=== PATIENT | female | born 1970 | race Caucasian/White ===

== ENCOUNTER 2019-03-31 20:38 | Inpatient (IN) | payer OTHER ==
[~2019-03-31] VITALS: Ht 167.6 cm; Wt 108.5 kg
[2019-03-31] MEDS ORDERED: Zantac150 MG PO (20:50)
[2019-03-31 22:30] LABS: Calcium, Ionized (POC) 0.99 mmol/L (1.10-1.46); Chloride (POC) 86 mmol/L (98-108); Creatinine (POC) 1.7 mg/dL (0.6-1.0); Glucose (ISTAT POC) 67 mg/dL (70-99); Hemoglobin (POC) 10.9 g/dL (12.0-16.0); Potassium (POC) 2.5 mmol/L (3.5-5.5); Sodium (POC) 126 mmol/L (135-148); Total CO2 (POC) 28 mmol/L (21-32)
[2019-03-31 22:38] LABS: Albumin/Globulin Ratio 0.4 (0.8-1.8); Bilirubin, Total 0.4 mg/dL (0.1-1.0); Bun/Creatinine Ratio 62.9 (12.0-20.0); Calcium, Blood 8.4 mg/dL (8.5-10.1); Creatinine, Blood 1.32 mg/dL (0.40-1.00); Globulin, Blood 4.7 g/dL (2.2-4.0); Potassium, Blood 2.7 mmol/L (3.5-5.5); Total Protein, Blood 6.7 g/dL (6.4-8.2)
[2019-03-31 22:41] LABS: Hemoglobin 8.1 g/dL (11.5-16.0); Mean Corpuscular HGB 19.4 pg (26.0-34.0); Mean Corpuscular HGB Conc 28.9 g/dL (31.5-36.5); Mean Corpuscular Volume 67 fL (80-100); Mean Platelet Volume 9.6 fL (9.1-12.4); NRBC ABSOLUTE 0.09 K/mm3 (0.00-0.02); NRBC Auto 0.4 /100 WBC (0.0-0.2); Platelet Count 739 K/mm3 (150-400); RDW Coefficient Variation 20.6 % (11.7-14.2); RDW Standard Deviation 46.6 fL (35.1-46.3); Red Blood Cell Count 4.17 M/mm3 (3.80-5.20); White Blood Cell Count 24.97 K/mm3 (4.00-11.30)
[2019-03-31 23:00] LABS: BAND PERCENT MAN 14 % (0-8); BASOPHILS PERCENT MAN 0 % (0-2); EOSINOPHILS PERCENT MAN 0 % (0-6); LYMPHOCYTES ABSOLUTE MAN 0.49 K/mm3 (0.84-5.20); LYMPHOCYTES PERCENT MAN 2 % (21-46); MONOCYTES ABSOLUTE MAN 1.49 K/mm3 (0.16-1.47); MONOCYTES PERCENT MAN 6 % (4-13); NEUTROPHILS ABSOLUTE MAN 22.97 K/mm3 (1.96-9.15); SEG NEUTROPHILS PERCENT MAN 78 % (41-73); TOTAL CELLS COUNTED 100
[2019-03-31 23:25] LABS: Magnesium, Blood 2.7 mg/dL (1.6-2.4)
[2019-04-01 04:00] LABS: Hematocrit 27.2 % (33.0-51.0); Hemoglobin 7.7 g/dL (11.5-16.0); Mean Corpuscular HGB Conc 28.3 g/dL (31.5-36.5); Mean Corpuscular Volume 67 fL (80-100); Mean Platelet Volume 9.4 fL (9.1-12.4); NRBC ABSOLUTE 0.06 K/mm3 (0.00-0.02); NRBC Auto 0.2 /100 WBC (0.0-0.2); Platelet Count 695 K/mm3 (150-400); RDW Coefficient Variation 20.3 % (11.7-14.2); RDW Standard Deviation 46.4 fL (35.1-46.3); Red Blood Cell Count 4.05 M/mm3 (3.80-5.20); White Blood Cell Count 24.16 K/mm3 (4.00-11.30)
[2019-04-01 04:20] LABS: Bun/Creatinine Ratio 59.8 (12.0-20.0); Calcium, Blood 8.3 mg/dL (8.5-10.1); Creatinine, Blood 1.22 mg/dL (0.40-1.00); Potassium, Blood 2.6 mmol/L (3.5-5.5)
[2019-04-01 05:16] LABS: BAND PERCENT MAN 7 % (0-8); BASOPHILS PERCENT MAN 0 % (0-2); EOSINOPHILS PERCENT MAN 0 % (0-6); LYMPHOCYTES PERCENT MAN 5 % (21-46); MONOCYTES ABSOLUTE MAN 1.44 K/mm3 (0.16-1.47); MONOCYTES PERCENT MAN 6 % (4-13); MYELOCYTE ABSOLUTE MAN 0.24 K/mm3 (0.00-0.00); MYELOCYTE PERCENT MAN 1 % (0-0); NEUTROPHILS ABSOLUTE MAN 21.26 K/mm3 (1.96-9.15); SEG NEUTROPHILS PERCENT MAN 81 % (41-73); TOTAL CELLS COUNTED 100
--- NOTE | 2019-04-01 06:52 | NUR ---
Shift Summary: Patient slept well throughout remainder of shift. Dr. Yanes to room this a.m. to assess patient and discuss surgery for perforated ulcer. Patient agreed to surgery, and Dr. Yanes obtained consent. Also received orders per Dr. Yanes for repeat BMP, magnesium, and to T+C. Blood samples obtained through power-glide and sent to lab. VS remain stable. C/o pain to ABD when Dr. Yanes palpated, otherwise no c/o pain. X1 larger loose BM late this shift. IV fluids switched to NS with 20meq KCl after IV KCl piggy back finished. Power-glide to DIONNE remains patent and intact. Peripheral IV to lt AC remains patent and intact. Call light in reach makes needs known. Will continue to monitor until report to day shift RN.
[2019-04-01 06:53] LABS: Prothrombin Time Results 10.6 Sec (9.7-11.5)
[2019-04-01 06:55] LABS: Phosphorus, Blood 3.5 mg/dL (2.5-4.9)
[2019-04-01 06:56] LABS: Bun/Creatinine Ratio 61.1 (12.0-20.0); Calcium, Blood 7.7 mg/dL (8.5-10.1); Creatinine, Blood 1.13 mg/dL (0.40-1.00); Potassium, Blood 3.2 mmol/L (3.5-5.5)
--- NOTE | 2019-04-01 11:30 | NUR ---
PT RETURNED FROM SURGERY AWAKE AND ALERT. REPORTING PAIN IN ABDOMEN AND GROANING. CURRENTLY ON ROOM AIR. NG STARTED TO LIS. VS STARTED. DRESSING TO ABDOMEN INTACT WITH WOUND VAC IN PLACE AND BLINKING GREEN. ANJU DRAIN WITH NO DRAINAGE ON ARRIVAL. CONTINUOUS OXIMETRY STARTED.
--- NOTE | 2019-04-01 14:37 | NUR ---
PT REPORTING PAIN STILL QUITE HIGH IN 7-8 REGION WHICH IS DOWN FROM ARRIVAL TO FLOOR. BLOOD PRESSURE LOW PRIOR TO GIVING 2MG MORPHINE BUT WAS UP TO 113 SYS 15 MINUTES AFTER GIVEN. HEART RATE HAS BEEN ELEVATED SINCE PRIOR TO SURGERY. NG WITH BLACK/BROWN DRAINAGE. ANJU EMPTIED WITH SEROUSANGUINESS DRAINAGE. DRESSING REMAINS C/D/I. SCDS IN PLACE.
--- NOTE | 2019-04-01 18:12 | NUR ---
SHIFT SUMMARY PT TOOK A NAP THIS AFTERNOON AFTER 2ND DOSE OF MORPHINE AND A KPAD APPLIED TO ABDOMEN PER HER REQUEST FOR COMFORT. WOKE UP WITH REPORTS OF FEELING VERY THIRSTY. SPONGES MOISTENED WELL CHAP STICK PROVIDED FOR COMFORT. NG TO LIS WITH GREEN/BLACK DRAINAGE LESS THAN 50ML. REPORTS PAIN GENERALLY 8/10 DESPITE PAIN MEDS. DRESSING REMAINS C/D/I.
--- NOTE | 2019-04-01 20:55 | NUR ---
ASSUMED CARE OF PATIENT AT APPROXIMATELY 1905 FROM TRISTAN Watts RN. PATIENT ALERT AND ORIENTED X4; WEAK; S/P EXP LAP FOR PERF ULCER. PATIENT REPORTS PAIN IN ABDOMEN 12/14; MEDICATED PER EMAR; REPORTS CONSTANT DULL ACHE THAT HAS IMPROVED SINCE SURGERY; K-PAD IN PLACE FROM DAYSHIFT. ABDOMINAL SURGICAL SITE DRESSING C/D/I; ANJU DRAINING AND WOUND VAC IN PLACE. NG TUBE TO LOW INTERMITTENT SUCTION DRAINING DARK GREEN LIQUID. ENOURAGE IS; L/S CLEAR/DIM; ST ON TELE; OXYGEN SATURATION ABOVE 90% ON ROOM AIR. PATIENT DENIES NUMBNESS, TINGLING, DIZZINESS AND NAUSEA. UA TO BE SENT TO LAB; LAB CALLED TO REPORT UA ORDERED IN ER BUT NO SAMPLE; PATIENT ARRIVED BACK FROM SURGERY WITH CATH IN PLACE. PG DIONNE; FLUIDS INFUSING PER ORDER INTO PIV. SCDS IN PLACE. PATIENT CURRENTLY RESTING IN BED; CALL LIGHT IN REACH; BED IN LOWEST POSISTION; BED ALARM ON; WILL CONTINUE TO MONITOR AND ASSESS UNTIL END OF SHIFT.
[2019-04-01 21:34] LABS: Source, Urine Clean Catch
[2019-04-01 21:41] LABS: Bilirubin, Urine Neg (Neg); Blood, Urine Neg (Neg); Glucose Qualitative, Urine Neg (Neg); Ketones, Urine Neg (Neg); Leukocyte Esterase, Urine Neg (Neg); Nitrite, Urine Neg (Neg); Protein, Urine 2+ (Neg); Urobilinogen, Urine NORM (Normal)
[2019-04-01 21:46] LABS: Appearance, Urine Clear (Clear); Color, Urine Yellow (P-Yellow)
[2019-04-01 21:49] LABS: Amorphous Mod (0-Heavy); Bacteria Rare /hpf; Red Blood Cells, Urine Not Seen /hpf (0-2); Squamous Epithelial Cells Not Seen /hpf (Few); White Blood Cells, Urine Rare /hpf (0-5)
[2019-04-02 06:10] LABS: BASOPHILS ABSOLUTE AUTO 0.12 K/mm3 (0.00-0.23); BASOPHILS PERCENT AUTO 0 % (0-2); Hematocrit 24.2 % (33.0-51.0); Hemoglobin 6.8 g/dL (11.5-16.0); LYMPHOCYTES ABSOLUTE AUTO 1.18 K/mm3 (0.84-5.20); LYMPHOCYTES PERCENT AUTO 3 % (21-46); MONOCYTES ABSOLUTE AUTO 1.34 K/mm3 (0.16-1.47); MONOCYTES PERCENT AUTO 4 % (4-13); Mean Corpuscular HGB 19.4 pg (26.0-34.0); Mean Corpuscular HGB Conc 28.1 g/dL (31.5-36.5); Mean Corpuscular Volume 69 fL (80-100); Mean Platelet Volume 9.4 fL (9.1-12.4); NRBC ABSOLUTE 0.09 K/mm3 (0.00-0.02); NRBC Auto 0.2 /100 WBC (0.0-0.2); Platelet Count 605 K/mm3 (150-400); RDW Coefficient Variation 21.2 % (11.7-14.2)
[2019-04-02 06:11] LABS: EOSINOPHILS PERCENT AUTO 0 % (0-6); IMMATURE GRAN ABSOLUTE AUTO 1.32 K/mm3 (0.00-0.10); IMMATURE GRAN PERCENT AUTO 4 % (0-1); NEUTROPHILS ABSOLUTE AUTO 32.74 K/mm3 (1.96-9.15); NEUTROPHILS PERCENT AUTO 89 % (41-73)
--- NOTE | 2019-04-02 06:17 | NUR ---
HEMOGLOBIN 6.8; CALLED DR. WOODWARD TO REPORT DROP IN HEMOGLOBIN; ORDERS RECIEVED FOR ONE UNIT RBC. PATIENT SLEPT ABOUT EIGHT HOURS LAST NIGHT. VSS. PAIN MORE CONTROLLED. NO OTHER ACUTE CHANGES TO REPORT. WILL CONTINUE TO MONITOR AND ASSESS UNTIL END OF SHIFT.
[2019-04-02 06:28] LABS: Bun/Creatinine Ratio 42.1 (12.0-20.0); Creatinine, Blood 1.26 mg/dL (0.40-1.00); Potassium, Blood 3.4 mmol/L (3.5-5.5)
--- NOTE | 2019-04-02 18:19 | NUR ---
TRANSFER PCU TRANSFER TO ROOM 229. PT IS ALERT AND ORIENTED. PT DENIES PAIN AND DENIES ANY CURRENT NEEDS. WOUND VAC TO ABD IS CDI. ANJU DRAIN IS INTACT AND COMPRESSED. NGT TO LIS. NPO. JETT PATENT WITH CLEAR YELLOW URINE. IVF INFUSING PER ORDERS. CALL LIGHT WITHIN REACH. FAMILY AT BEDSIDE FOR SUPPORT.
[2019-04-03 04:20] LABS: BASOPHILS ABSOLUTE AUTO 0.05 K/mm3 (0.00-0.23); BASOPHILS PERCENT AUTO 0 % (0-2); EOSINOPHILS PERCENT AUTO 0 % (0-6); Hematocrit 24.8 % (33.0-51.0); Hemoglobin 7.1 g/dL (11.5-16.0); IMMATURE GRAN ABSOLUTE AUTO 1.13 K/mm3 (0.00-0.10); IMMATURE GRAN PERCENT AUTO 4 % (0-1); LYMPHOCYTES ABSOLUTE AUTO 1.28 K/mm3 (0.84-5.20); LYMPHOCYTES PERCENT AUTO 5 % (21-46); MONOCYTES ABSOLUTE AUTO 0.95 K/mm3 (0.16-1.47); MONOCYTES PERCENT AUTO 3 % (4-13); Mean Corpuscular HGB 20.8 pg (26.0-34.0); Mean Corpuscular HGB Conc 28.6 g/dL (31.5-36.5); Mean Platelet Volume 9.1 fL (9.1-12.4); NEUTROPHILS ABSOLUTE AUTO 24.77 K/mm3 (1.96-9.15); NEUTROPHILS PERCENT AUTO 88 % (41-73); NRBC ABSOLUTE 0.11 K/mm3 (0.00-0.02); NRBC Auto 0.4 /100 WBC (0.0-0.2); Platelet Count 542 K/mm3 (150-400); RDW Standard Deviation 55.4 fL (35.1-46.3); Red Blood Cell Count 3.41 M/mm3 (3.80-5.20); White Blood Cell Count 28.28 K/mm3 (4.00-11.30)
[2019-04-03 04:22] LABS: Mean Corpuscular Volume 73 fL (80-100)
[2019-04-03 04:42] LABS: Anion Gap 6 mmol/L (6-16); Blood Urea Nitrogen 23 mg/dL (8-24); Bun/Creatinine Ratio 31.1 (12.0-20.0); CO2, Blood 25 mmol/L (21-32); Calcium, Blood 7.2 mg/dL (8.5-10.1); Chloride, Blood 109 mmol/L (98-108); Creatinine, Blood 0.74 mg/dL (0.40-1.00); Glomerular Filtration Rate >60 (60-); Glucose, Blood 59 mg/dL (70-99); Potassium, Blood 3.2 mmol/L (3.5-5.5); Sodium, Blood 140 mmol/L (136-145)
--- NOTE | 2019-04-03 06:10 | NUR ---
SHIFT SUMMARY POD#2 DUODENAL ULCER REPAIR. AAOX4/SLOW TO RESPOND AT TIMES. DISCOMFORT CONTROLLED WITH 4MG IV MORPHINE X2 THIS SHIFT. NO NAUSEA/EMESIS. ABD INCISION WITH MARIANA C/D/I. ANJU SECURE WITH SMALL AMOUNT SS OUT. NGT WITH LARGE AMOUNT OF CLEAR/GREEN OUT. NEW MEPILEX DRESSING PLACED ON COCCYX WOUND + NEW WOUND DOCUMENTATION IN CHART. PT NEEDS CONSTANT ENCOURAGEMENT TO CHANGE POSITIONS + PT REFUSES POSITIONS CHANGES AT TIMES. CONTINUE TO EDUCATE PT REGARDING THE IMPORTANCE OF REPOSITIONING. PT SITTING UP IN BED AT THIS TIME WATCHING TV, NADN, CALL LIGHT IN REACH.
--- NOTE | 2019-04-03 06:14 | NUR ---
HYPOGLYCEMIA DR WOODWARD NOTIFIED OF CHEMBG OF 57 THIS AM. D5NS WITH 20 KCL RATE INCREASED. CONTINUE CHEMBG CHECKS Q4H. PT DENYING ANY S/S OF HYPOGLYCEMIA. NPO WITH NGT IN PLACE.
--- NOTE | 2019-04-03 11:25 | NUR ---
Spiritula care visit attempted. Upon receiving a spiritual care referral, I visited patient. Patient is lying in bed with several family memebers present. Patient denies any need for spiritual care but thanked me for checking in on her.
--- NOTE | 2019-04-03 13:37 | NUR ---
04/03/19 1337 Sherin Gordon VERIFICATIONS, AUDITS.
--- NOTE | 2019-04-03 13:55 | NUR ---
THERAPY IN TO SEE PT.
--- NOTE | 2019-04-03 17:29 | NUR ---
SUMMARY POD2. NG DRAINING DARK GREEN FLUID. PT RELUCTANT TO REPOSITION AND WORK W/THERAPY. REPOSITIONED T/O SHIFT. MEDICATED PER ORDERS FOR PAIN. PT'S CBG IN 60S T/O DAY. DISCUSSED W/DR HARRIS; ORDERS OBTAINED. CALL LIGHT IN REACH.
--- NOTE | 2019-04-03 20:37 | NUR ---
04/03/192024 NOTIFIED DR MCCABE OF BLOOD SUGAR OF 60. SEE ORDER TO INCREASE IV RATE TO 175ML/HOUR AND RN INCREASED IV FLUIDS ACCORDINGLY. ASYMPTOMATIC. PT NPO AND ICE CHIPS ONLY.
--- NOTE | 2019-04-04 03:53 | NUR ---
04/04/19 0300 JETT WITH ONLY SCANT URINE IN BAG WITH SEDIMENT. PT DEIES FULL BLADDER. NG TUBE OUTPUT 2450 ML THIS SHIFT SO FAR. BLADDER SCAN = 167 ML. PT DENIES DRINKING WATER. PT'S SON SPOKE WITH SPECIAL EDUCATION PROFESSIONAL,AHMET AND ADMITS THAT FAMILY HAS BEEN GIVING HER WATER OR SHE GETS VERY ANGRY WITH THEM. RN WILL RECHECK PLACEMENT OF JETT CATHETER.
[2019-04-04 03:55] LABS: Hematocrit 24.8 % (33.0-51.0); Mean Corpuscular HGB Conc 28.2 g/dL (31.5-36.5); Mean Corpuscular Volume 75 fL (80-100); Mean Platelet Volume 9.2 fL (9.1-12.4); NRBC ABSOLUTE 0.06 K/mm3 (0.00-0.02); NRBC Auto 0.2 /100 WBC (0.0-0.2); Platelet Count 530 K/mm3 (150-400); RDW Coefficient Variation 22.9 % (11.7-14.2); RDW Standard Deviation 59.4 fL (35.1-46.3); Red Blood Cell Count 3.33 M/mm3 (3.80-5.20); White Blood Cell Count 25.56 K/mm3 (4.00-11.30)
[2019-04-04 04:12] LABS: Anion Gap 4 mmol/L (6-16); Blood Urea Nitrogen 10 mg/dL (8-24); Bun/Creatinine Ratio 15.9 (12.0-20.0); CO2, Blood 24 mmol/L (21-32); Calcium, Blood 7.1 mg/dL (8.5-10.1); Chloride, Blood 115 mmol/L (98-108); Creatinine, Blood 0.63 mg/dL (0.40-1.00); Glomerular Filtration Rate >60 (60-); Glucose, Blood 76 mg/dL (70-99); Potassium, Blood 3.4 mmol/L (3.5-5.5); Sodium, Blood 143 mmol/L (136-145)
--- NOTE | 2019-04-04 04:51 | NUR ---
04/04/19 0430 JETT LEAKING IN BED AND DC'D. NEW #16 JETT CATH INSERTED WITHOUT PROBLEMS. RETURN OF CLEAR ZOEY COLOR URINE. 325 ML IN BAG AND EMPTIED. JETT SECURED WITH STAT -LOCK TO THIGH.
--- NOTE | 2019-04-04 06:55 | NUR ---
04/04/19 0615 MEDICATED FOR PAIN AGAIN. NG TUBE DRAINAGE NOW DARK GREEN AFTER ALL CUPS WERE REMOVED FROM ROOM. PT WOULD MAKE SON AND FAMILY GIVE HER WATER EVEN WHEN SHE WAS AWARE OF NPO WITH ICE CHIPS STATUS. TOTAL NG DRAINAGE WAS 2700 THIS SHIFT. NEW JETT WAS INSERTED OLD ONE WAS LEAKING. PT IS VERY NEGATIVE WITH STAFF AND HAS TO BE ENCOURAGED TO ALLOW NURSING TASKS. SEE PREVIOUS NOTES.
--- NOTE | 2019-04-04 12:38 | NUR ---
[facility] [address] HARRIS. NO NEW ORDERS AT THIS TIME.
[2019-04-04 13:48] LABS: Phosphorus, Blood 1.8 mg/dL (2.5-4.9)
--- NOTE | 2019-04-04 15:22 | NUR ---
pt working w/OT
--- NOTE | 2019-04-04 17:28 | NUR ---
SUMMARY NO ACUTE CHANGES T/O SHIFT. PT REFUSES CARE/REPOSITIONING AT TIMES. EDUCATED ON BEING COMPLIANT W/NPO EXCEPT FOR ICE CHIPS. APPEARS TO HAVE BEEN COMPLIANT THIS SHIFT. WORKED W/THERAPY BUT REFUSED TO STAND. REC'D 1 PRBCS PER ORDERS. PPN STARTED THIS EVENING. MEDICATED PER ORDERS FOR PAIN PRN. CALL LIGHT IN REACH.
--- NOTE | 2019-04-05 01:21 | NUR ---
PPN WHICH WAS SCHEDULED FOR 1700 WAS STARTED AT 0110 DUE TO ABX AND POTASSIUM PHOSPHATE SCHEDULED WHICH WERE NOT COMPATIBLE TO BE RUN AT SAME TIME. ALSO NEW NG TUBE CANISTER STARTED AT 2130 AND BY 0000 IT WAS FULL AT 1100ML LIGHT GREEN/YELLOW FLUID WITH SOME DARK GREEN SEDIMENT AT BOTTOM. ASKED HER IF SHE WAS DRINKING ANYTHING BESIDES THE ICE CHIPS, SHE DENIED ANYTHING ELSE BESIDES SMALL CUP OF ICE CHIPS.
--- NOTE | 2019-04-05 03:21 | NUR ---
CHEM BG CHEM BG AT MIDNIGHT WAS 67. DISCUSSED C BALLROOM DANCER RHONDA AND SHE SAID TO MONICA TO MONITOR IT Q4HR.
[2019-04-05 04:33] LABS: Hematocrit 28.5 % (33.0-51.0); Hemoglobin 8.2 g/dL (11.5-16.0); Mean Corpuscular HGB 21.5 pg (26.0-34.0); Mean Corpuscular HGB Conc 28.8 g/dL (31.5-36.5); Mean Corpuscular Volume 75 fL (80-100); Mean Platelet Volume 8.8 fL (9.1-12.4); NRBC Auto 0.3 /100 WBC (0.0-0.2); Platelet Count 521 K/mm3 (150-400); RDW Coefficient Variation 22.7 % (11.7-14.2); RDW Standard Deviation 57.4 fL (35.1-46.3); Red Blood Cell Count 3.81 M/mm3 (3.80-5.20)
[2019-04-05 04:53] LABS: Anion Gap 7 mmol/L (6-16); Blood Urea Nitrogen 7 mg/dL (8-24); Bun/Creatinine Ratio 12.1 (12.0-20.0); CO2, Blood 22 mmol/L (21-32); Calcium, Blood 7.1 mg/dL (8.5-10.1); Chloride, Blood 113 mmol/L (98-108); Creatinine, Blood 0.58 mg/dL (0.40-1.00); Glomerular Filtration Rate >60 (60-); Glucose, Blood 85 mg/dL (70-99); Magnesium, Blood 1.7 mg/dL (1.6-2.4); Phosphorus, Blood 2.8 mg/dL (2.5-4.9); Sodium, Blood 142 mmol/L (136-145); Triglycerides 146 mg/dL (30-160)
--- NOTE | 2019-04-05 06:54 | NUR ---
SHIFT SUMMARY PT FLAT ANXIOUS AFFECT AT TIMES. REFUSED REPOSITIONING ABOUT EVERY OTHER TIME WHEN ASKED. C/O PAIN IN ABD X1 AND MEDICATED PER EMAR. TOTAL NG TUBE OUTPUT OF SHIFT WAS 2700, ASKED HER IF SHE WAS DRINKING ANYTHING BESIDES ICE CHIPS AND SHE DENIED ANYTHING ELSE. WAS ON 1L O2 BUT O2 SATS WEREN'T GETTING ABOVE 88% SO WENT UP TO 5L TO GET AND MAINTAIN AT 90. SWITCHED TO OXYMIZER AND WAS ABLE TO STAY AT 90% ON 3L O2. LOW OUTPUT OF JETT AT 450. ANJU DRAINAGE MINIMAL T/O NIGHT. SHE ONLY DOZED A LITTLE T/O NIGHT AND WAS AWAKE ALMOST EVERY TIME SOMEONE WENT INTO ROOM. SO IN ROOM ON COT. CALL LIGHT IN REACH.
--- NOTE | 2019-04-05 07:40 | NUR ---
dr washington by to see changed augusto dressing and mirta dressing removed coccyx dressing dr washington req to use powder and to leave off dressing to dry out also to use in groin pt currently on oximzer on 3 l pt denies sob during the night 5 l no cough no flatus no nausea ngt to sx light green drainage
--- NOTE | 2019-04-05 08:00 | NUR ---
after rolling back and forth pt o2 sat down to 84 % inc oxygen to 6 l 89% will recheck in 15-20 min after sob resolved
--- NOTE | 2019-04-05 08:25 | NUR ---
biox 5 l oximizer 91% awaiting xray
--- NOTE | 2019-04-05 09:45 | NUR ---
pt transported to [facility] via [facility] clamped iv sl
--- NOTE | 2019-04-05 14:04 | NUR ---
rt by to eval pt placed on high flow oxygen on 15 liters
--- NOTE | 2019-04-05 15:03 | NUR ---
BIOX 92-93% PT WATCHING TV HIGH FLOW IN MOUTH PT IS A MOUTH BREATHER
--- NOTE | 2019-04-05 15:43 | NUR ---
dr branch by to see pt to transfer to [facility]
--- NOTE | 2019-04-05 16:50 | NUR ---
NGT REMOVED OK TO START CL DIET PER DR PEPPER GONZALEZ STILL 93% ON 15 L HIGH FLOW NC WITH CONT BIOX PT HAS SMALL SORE TO R NARE CLEANED
--- NOTE | 2019-04-05 16:54 | NUR ---
PT TRANSFERED PT TRANSFERED TO [facility] AT 1645. PT SATINGIN THE 80S CURRENTLY ON 15L HIGH FLOW NC. RT IN ROOM. OTHER VITALS STABLE.
--- NOTE | 2019-04-05 16:59 | NUR ---
AIRVO ORDER DR. HARRIS CALLED & UPDATED ON PT TRANSFER & O2 SATS. AIRVO ORDERED. RT NOTIFIED.
--- NOTE | 2019-04-05 17:05 | NUR ---
PT TRANSPORTED TO PCU 8 VIA BED PT PLACED ON O2 CANNISTER WITH NC 2 15 L DECREASED TO 83%
--- NOTE | 2019-04-05 17:14 | NUR ---
PT NOW ON AIRVO PT ON AIRVO. SATING AT 91% ON 40L & 80% AIRVO SETTINGS.
--- NOTE | 2019-04-06 01:29 | NUR ---
04/05/191999 PT RESTING SUPINE HIGH FOWLERS, DECLINES TO ALLOW STAFF REPOSITION, DENIES PAIN, FAMILY AT SIDE AND SUPPORTIVE, WEARING O2 VIA AIRVO, ALERT AND ORIENTED X 4. 0100 PT DECLINED TO ALLOW AND REPOSITIONING OR TAKE ANY PAIN MEDS, COUGH WEAK, LUNG SOUNDS DIMINISHED THROUGHOUT, MOI ENG, CHARGE NURSE ADVISED PT DECLINING TO ALLOW REPOSITIONING.
[2019-04-06 05:26] LABS: Hematocrit 26.8 % (33.0-51.0); Hemoglobin 7.9 g/dL (11.5-16.0); Mean Corpuscular HGB 22.3 pg (26.0-34.0); Mean Corpuscular HGB Conc 29.5 g/dL (31.5-36.5); Mean Corpuscular Volume 76 fL (80-100); NRBC ABSOLUTE 0.03 K/mm3 (0.00-0.02); NRBC Auto 0.1 /100 WBC (0.0-0.2); Platelet Count 494 K/mm3 (150-400); RDW Coefficient Variation 23.2 % (11.7-14.2); RDW Standard Deviation 62.1 fL (35.1-46.3); Red Blood Cell Count 3.55 M/mm3 (3.80-5.20)
[2019-04-06 05:30] LABS: White Blood Cell Count 50.34 K/mm3 (4.00-11.30)
[2019-04-06 05:44] LABS: Magnesium, Blood 1.6 mg/dL (1.6-2.4); Phosphorus, Blood 3.2 mg/dL (2.5-4.9)
[2019-04-06 05:55] LABS: BAND PERCENT MAN 2 % (0-8); BASOPHILS PERCENT MAN 0 % (0-2); EOSINOPHILS PERCENT MAN 0 % (0-6); LYMPHOCYTES ABSOLUTE MAN 2.51 K/mm3 (0.84-5.20); LYMPHOCYTES PERCENT MAN 5 % (21-46); METAMYELOCYTE PERCENT MAN 1 % (0-0); MONOCYTES ABSOLUTE MAN 1.51 K/mm3 (0.16-1.47); MONOCYTES PERCENT MAN 3 % (4-13); SEG NEUTROPHILS PERCENT MAN 89 % (41-73); TOTAL CELLS COUNTED 100
--- NOTE | 2019-04-06 06:17 | NUR ---
SHIFT SUMMARY: 48 Y/O OBESE FEMALE RESTING IN HIGH FOWLERS POSITION, PTS ABD MARIANA DRESSING/DRAIN HAS OLD DRIED RED/YELLOW DRAINAGE NOTED, PT AT TIMES DECLINED TO BE REPOSITIONED BY STAFF UNTIL NURSING INSISTED SHE BE TURNED DUE RISK FOR INCREASED BED SORES, PT WAS INCONTINENT ONCE LARGE AMOUNT GREEN LOOSE STOOL (SAMPLE SENT TO LAB), PTS SON AT SIDE ALL SHIFT, PTS MAGDALENE GODOY HAS 20ML YELLOW FLUID, JETT EMPTIED 400CC TEA COLORED FLUID, PT CONTINUES TO WEAR OXYGEN VIA AIRVO AT 45 LITERS AT 93%, PT THIS AM AT 0530 HAD TEMP 101.7 AND RESPIRATIONS 36 (DR BRUCE NOTIFIED WITH LABS ORDERED), TELEMETRY REFLECTS NSR WITH HEART RATE 92, C/O ABD PAIN RATED 6/10 WITH MORPHINE 4MG IVP GIVEN X 2 WITH RELIEF FELT (PT AT TIMES VERY RELUCTANT TO TAKE MEDS AND WAS ENCOURAGED BY THIS NURSE TO TAKE MEDICATION WITH ACKNOWLEDGEMENT NOTED), BED LOW POSITION WITH CALL LIGHT AT SIDE.
[2019-04-06 08:08] LABS: C-PEPTIDE, SERUM 1.8 ng/mL (1.1-4.4)
--- NOTE | 2019-04-06 10:38 | NUR ---
YANICK WAS IN TO SEE PT, WILL MOVE HER TO ICU, GAVE REPORT TO BANG PRATER, WILL TRANSFER VIA BED. SON IN ROOM AND WAS PRESENT WHEN YANICK WAS IN TO SEE HER. ALL BELONGING GOING WITH HER.
--- NOTE | 2019-04-06 11:08 | NUR ---
ARRIVAL TO ICU 1055 - PT ARRIVES FROM PCU AT THIS TIME. SHE IS CALM, COOPERATIVE AND FOLLOWS COMMANDS APPROPRAITELY. VSS. NSR, HR 90S. BP WNL. AFEBRILE. CURRENTLY ON 45L, 95% ON AIRVO. FAMILY AT BEDSIDE. PPN INFUSING PER ORDERS. WILL CONTINUE TO MONITOR.
--- NOTE | 2019-04-06 12:16 | NUR ---
PT LAYING IN BED AWAKE FLAT AFFECT, SON IN R0OM, DENIES PAIN OR BREATHING PROBLEMS, BUT IS ON AIRVO, SHE IS REFUSING TO BE TURNED, EVEN THOUGH EXPLAINED THE IMPORTANCE. DR. PABON IN TO SEE HER THIS AM, REMOVED A FEW TERELL AND IRRIGATED THE WOUND, CHANGED DRESSING. LUNGS ARE DIM T/O, RESP EVEN AND UNLABORED, NO COUGH NOTED, HRR, TELE IN PLACE RUNNING SR PER MONITOR, SEE STRIP, NO EDEMA NOTED, PPP+1, CAP REFILL <3 SEC, VS STABLE, AFEBRILE, IV SITE IS POWERGLIDE TO DIONNE, SITE IS CLEAR AND PATENT, INFUSING PPN ORDERED, BT HYPOACTIVE, ABD FLAT SOFT TENDER WITH PALP, JETT DRAINING CLEAR YELLOW URINE, ANJU DRAIN DRAINING PURELENT DRAINAGE, SKIN HAS MID LINE INCISION, COCCYX IS RED, BREAKING DOWN PER REPORT, CANNOT ASSESS SHE REFUSED TO TURN, MOVES UPPER EXT, BUT NOT MAKING AN EFFORT TO MOVE LE, PALLATIVE CARE CONSULT PLACED FOR ASSIST WITH NOT PARTICIPATING IN CARE. CALL LIGHT IN REACH.
--- NOTE | 2019-04-06 20:00 | NUR ---
ASSUMED CARE OF PT AT 1900. REPORT RECEIVED. PT PRESENTS IN BED IN NO DISTRESS. CONTINUES WITH AERVO WHEREAS SHE IS MAINTAINING 90 PERCENT SATURATIONS. WILL REVIEW CHART AND PLAN OF CARE FOR THIS PT.
[2019-04-06 20:21] LABS: Adenovirus Not Detected (NOT DETECT); Coronavirus 229E Not Detected (NOT DETECT); Coronavirus HKU1 Not Detected (NOT DETECT); Coronavirus NL63 Not Detected (NOT DETECT); Coronavirus OC43 Not Detected (NOT DETECT); Human Metapneumovirus Not Detected (NOT DETECT); Human Rhinovirus/Enterovirus Not Detected (NOT DETECT); Influenza A Not Detected (NOT DETECT); Influenza A/2009-H1 Not Detected (NOT DETECT); Influenza A/H1 Not Detected (NOT DETECT); Influenza A/H3 Not Detected (NOT DETECT)
[2019-04-06 20:22] LABS: Bordetella pertussis Not Detected (NOT DETECT); Chlamydophila pneumoniae Not Detected (NOT DETECT); Influenza B Not Detected (NOT DETECT); Mycoplasma pneumoniae Not Detected (NOT DETECT); Parainfluenza Virus 1 Not Detected (NOT DETECT); Parainfluenza Virus 2 Not Detected (NOT DETECT); Parainfluenza Virus 3 Not Detected (NOT DETECT); Parainfluenza Virus 4 Not Detected (NOT DETECT); Respiratory Syncytial Virus Not Detected (NOT DETECT)
[2019-04-07 01:13] LABS: PCO2 Arterial 37.7 mmHg (35-45)
--- NOTE | 2019-04-07 01:25 | NUR ---
PT WAS ON A AIRVO BUT WAS MOUTH BREATHING AND COULD NOT KEEP HER SATS UP ON MAX SETTING, PT PLACED ON CPAP 10 60% FULL FACE MASK
[2019-04-07 04:59] LABS: BASOPHILS ABSOLUTE AUTO 0.07 K/mm3 (0.00-0.23); BASOPHILS PERCENT AUTO 0 % (0-2); EOSINOPHILS ABSOLUTE AUTO 0.05 K/mm3 (0.00-0.68); EOSINOPHILS PERCENT AUTO 0 % (0-6); Hematocrit 25.6 % (33.0-51.0); Hemoglobin 7.4 g/dL (11.5-16.0); IMMATURE GRAN ABSOLUTE AUTO 1.53 K/mm3 (0.00-0.10); IMMATURE GRAN PERCENT AUTO 4 % (0-1); LYMPHOCYTES ABSOLUTE AUTO 1.35 K/mm3 (0.84-5.20); LYMPHOCYTES PERCENT AUTO 4 % (21-46); MONOCYTES ABSOLUTE AUTO 0.91 K/mm3 (0.16-1.47); MONOCYTES PERCENT AUTO 3 % (4-13); Mean Corpuscular HGB 21.8 pg (26.0-34.0); Mean Corpuscular HGB Conc 28.9 g/dL (31.5-36.5); Mean Corpuscular Volume 75 fL (80-100); Mean Platelet Volume 9.1 fL (9.1-12.4); NEUTROPHILS ABSOLUTE AUTO 32.82 K/mm3 (1.96-9.15); NEUTROPHILS PERCENT AUTO 89 % (41-73); NRBC ABSOLUTE 0.05 K/mm3 (0.00-0.02); NRBC Auto 0.1 /100 WBC (0.0-0.2); Platelet Count 499 K/mm3 (150-400); RDW Coefficient Variation 23.9 % (11.7-14.2); RDW Standard Deviation 63.9 fL (35.1-46.3); White Blood Cell Count 36.73 K/mm3 (4.00-11.30)
[2019-04-07 05:15] LABS: Anion Gap 5 mmol/L (6-16); Blood Urea Nitrogen 13 mg/dL (8-24); Bun/Creatinine Ratio 21.6 (12.0-20.0); CO2, Blood 25 mmol/L (21-32); Calcium, Blood 7.7 mg/dL (8.5-10.1); Chloride, Blood 109 mmol/L (98-108); Glomerular Filtration Rate >60 (60-); Glucose, Blood 109 mg/dL (70-99); Magnesium, Blood 1.7 mg/dL (1.6-2.4); Phosphorus, Blood 3.3 mg/dL (2.5-4.9); Potassium, Blood 3.7 mmol/L (3.5-5.5); Sodium, Blood 139 mmol/L (136-145)
--- NOTE | 2019-04-07 07:37 | NUR ---
PT HAS RELUCTANTLY ACCEPTED Q 2 HOUR TURNS WITH ENCOURAGEMENT. HAS TOLERATED CPAP AT 10 CM WHEREAS SHE HAS MAINTAINED > 90 PERCENT SATURATIONS. PT HAS BEEN MEDICATED THREE TIMES THIS SHIFT WITH 2 MG MORPHINE FOR POST OP PAIN. THIS HAS ALLOWED PT TO REST. ANJU DRAIN HAS HAD OUT 85 ML SEROUS DRAINAGE WITH SOME HAZINESS IN COLOR. HAVE REPORTED OFF TO ONCOMING RN.
--- NOTE | 2019-04-07 08:45 | NUR ---
MIDLINE DRESSING CHANGE: DR PABON IN TO SEE PT. MIDLINE DRESSING CHANGED AT THIS TIME. VERBAL ORDER TO CHANGE ONCE A DAY. WOUND IS NOTED TO HAVE TWO AREAS WHERE THE TERELL CAME OUT AND APPEARS TO HAVE DEHISCED SLIGHTLY, DR WAS ALREADY AWARE. MIDLINE WAS CLEANED WITH GAUZE AND THE WOUND CLEANING SOLUTION. DR PABON STATES TO LIGHTLY PACK THE TWO AREAS WHERE THE TERELL ARE NOT THERE WITH GAUZE THEN PLACE ABD PAD OVER WITH SOME CLOTH TAPE TO SECURE IN PLACE. DR PABON MADE SUGJESTION TO HAVE NEW BLOOD CULTURES DRAWN, TO DISCUSS WITH HOSPITALIST OR DR JONES FOR ACTUAL ORDER.
--- NOTE | 2019-04-07 09:26 | NUR ---
COMPLEX WOUNDS: REPORT OF PT REFUSING TURNS. EDUCATED PT ON THE IMPORTANCE OF TURNS, SHOWED PT SOME PICTURES OF STAGE IV AND UNSTAGEABLE PRESSURE ULCERS TO EXPRESS IMPORTANCE OF TURNING. PT NODS IN UNDERSTANDING AND DOES NOT PROTEST TO BEDBATH OR TURN. PT IS FOUND TO HAVE A LARGE AMOUNT OF STOOL IN THE BED, AROUND RECTAL TUBE. WOUNDS ON COCCYX AND GLUTEUS APPEAR WORSE THAN IN PREVIOUS SEEN IN DOCUMENTED PICTURES. NEW PICTURES TAKEN AND PLACED IN CHART. CLEANED WITH WATER AND SOAP THEN PLACED MEPILEX DRESSING OVER WOUNDS.
--- NOTE | 2019-04-07 10:31 | NUR ---
UPDATE: DR KAREN EDWARD'D BLOOD CULTURES. NEW ORDERS FOR TUBE FEEDINGS AND DOBHOFF PLACEMENT.
--- NOTE | 2019-04-07 11:11 | NUR ---
LOVENOX: CALLED DR PABON AND RECEIVED THE OK TO GIVE PT LOVENOX. NOTIFIED DR JONES
[2019-04-07 13:30] LABS: Hematocrit 23.7 % (33.0-51.0); Hemoglobin 6.9 g/dL (11.5-16.0)
[2019-04-07 13:50] LABS: Ferritin, Serum 268 ng/mL (8-252); Total Iron Binding Capacity 90 ug/dL (250-450)
[2019-04-07 13:55] LABS: Iron Serum <5 ug/dL (50-170); Percent Saturation Unable to Calculate % (15.0-50.0)
[2019-04-07 13:56] LABS: Vancomycin, Trough 25.8 ug/mL (5.0-10.0)
--- NOTE | 2019-04-07 14:24 | NUR ---
LOW HGB: PT HGB NOTED TO BE 6.9 WHICH IS DOWN FROM THIS MORNINGS LABS OF 7.9 DR JONES NOTIFIED. ORDER FOR 1 UNIT OF PRBC AND TO HOLD LOVENOX AT THIS TIME.
--- NOTE | 2019-04-07 15:13 | NUR ---
PHYSICAL THERAPY AND TURNS: PHYSICAL THERAPY CAME IN TO WORK WITH PT. WORKED ON ROM IN THE BED. WENT IN TO REPOSITION AND PT STATED SHE WAS TO TIRED AND DIDN'T WANT TO MOVE SHE WANTED TO "SLEEP". EDUCATED PT ON THE NEED TO MOVE AND NEEDING TO CHANGE GOWN D/T TUBE FEEDING BEING ON IT AND NEEDING A STOOL SAMPLE OUT OF THE RECTAL TUBE. NUMEROUS VISITORS WHERE IN THE ROOM LEFT FOR CARE TO BE DONE. ASKED PT IF SHE WOULD LIKE TO HAVE VISITORS TOLD TO COME BACK D/T BEING TIRED AND WANTING TO SLEEP, PT STATES "NO". SOME LEAKS NOTED AROUND RECTAL TUBE, CHANGED LINENS AND CLEANED UP AROUND THE RECTAL TUBE. O2 SATS DROPPED WITH ALL THE MOVEMENT AND WORK WITH PHYSICAL THERAPY PLACED PT ON CPAP.
[2019-04-07 17:15] LABS: C DIFFICILE BY DNA AMP Positive (Negative)
--- NOTE | 2019-04-07 18:21 | NUR ---
SHIFT SUMMARY: PT HAS BEEN MORE COMPLIANT WITH TURNS AND CARE. AT ONE POINT PT DID STATE SHE WAS TIRED AND WANTED TO BE LEFT ALONE, BUT THEN PARTICIPATED WITH TURNS AND GOWN CHANGE. EXTENSIVE EDUCATION AND PERSISTANT Q2 TURNS T/O THE DAY. PT WAS PLACED ON THE AIRVO TODAY FOR APPROX 4-5 HOURS AND TOLLERATED WELL. PT USED IS AFTER EDUCATION BUT DOES NOT APPEAR TO HAVE THE DRIVE TO CONTINUE INDEPENDENTLY. MEDICATED FOR PAIN NEEDED PER ORDERS. PT HAS APPEARED RATHER TIRED TODAY AFTER BEDBATH, ASSISTING WITH TURNS AND WORKING WITH PHYSICAL THERAPY. HGB WAS NOTED TO BE LOW, 1 UNIT OF PRBC RUNNING AT THIS TIME. STOOL CAME BACK C-DIF POSITIVE, DR JONES NOTIFIED, AWAITING C-DIF TOX REPORT. VSS T/O THE DAY. PT RESTING AT THIS TIME. CALL LIGHT IN REACH.
--- NOTE | 2019-04-07 18:32 | NUR ---
SHIFT SUMMARY CONT: DOBHOFF WAS PLACED AND TUBE FEEDINGS STARTED @ 15ML/HR, PER DIETARY. PT APPEARS TO BE TOLLERATING AT THIS TIME. NILS WAS DC'D WILL REEVALUATE TOMORROW BASED ON HER HGB.
--- NOTE | 2019-04-07 20:00 | NUR ---
ASSUMED CARE OF PT AT 1915. REPORT RECEIVED. PT PRESENTS IN BED ALERT. WEARING HER CPAP. MAINTAINING OXYGEN SATURATIONS > 90 PERCENT. PT IN NO APPARENT DISTRESS. WILL REVIEW CHART AND PLAN OF CARE FOR THIS PT.
--- NOTE | 2019-04-08 | NUR ---
PT HAS BEEN MEDICATED WITH 4 MG MORPHINE FOR COMPLAINT OF ABDOMINAL - POST OP PAIN. PT STATES THAT THIS IS AFFECTIVE FOR PAIN MANAGEMENT. ABDOMINAL DRESSING REMAINS CDI. ANJU DRAIN REMAINS COMPRESSED. SMALL AMOUNT OF SEROUS DRAINAGE. NO S/S ADVERSE REACTIONS TO ANTIBIOTIC THERAPY. PT NO LONGER RESISTING REPOSITIONING. PT RESPONDS WELL TO FULL TEACHING AND EXPLANATION OF ALL PROCEDURES AND PROCESSES. WILL CONTINUE TO MONITOR.
[2019-04-08 01:10] LABS: Vancomycin, Random 20.2 ug/mL
--- NOTE | 2019-04-08 03:00 | NUR ---
PT RESTING IN BED AT THIS TIME. AGAIN HAS BEEN MEDICATED WITH 4 MG MORPHINE FOR ABDOMINAL/POST OP SURGERY PAIN. PT STATES GOOD RELIEF. CONTINUES COMPLIANCE WITH CPAP MASK. WILL CONTINUE TO MONITOR.
[2019-04-08 04:15] LABS: BASOPHILS ABSOLUTE AUTO 0.05 K/mm3 (0.00-0.23); BASOPHILS PERCENT AUTO 0 % (0-2); EOSINOPHILS PERCENT AUTO 1 % (0-6); Hematocrit 24.7 % (33.0-51.0); Hemoglobin 7.6 g/dL (11.5-16.0); IMMATURE GRAN ABSOLUTE AUTO 0.38 K/mm3 (0.00-0.10); IMMATURE GRAN PERCENT AUTO 2 % (0-1); LYMPHOCYTES PERCENT AUTO 6 % (21-46); MONOCYTES ABSOLUTE AUTO 0.79 K/mm3 (0.16-1.47); MONOCYTES PERCENT AUTO 4 % (4-13); Mean Corpuscular HGB 23.1 pg (26.0-34.0); Mean Corpuscular HGB Conc 30.8 g/dL (31.5-36.5); Mean Corpuscular Volume 75 fL (80-100); Mean Platelet Volume 9.4 fL (9.1-12.4); NEUTROPHILS ABSOLUTE AUTO 19.29 K/mm3 (1.96-9.15); NEUTROPHILS PERCENT AUTO 87 % (41-73); NRBC ABSOLUTE 0.05 K/mm3 (0.00-0.02); NRBC Auto 0.2 /100 WBC (0.0-0.2); Platelet Count 460 K/mm3 (150-400); RDW Coefficient Variation 23.6 % (11.7-14.2); RDW Standard Deviation 63.9 fL (35.1-46.3); Red Blood Cell Count 3.29 M/mm3 (3.80-5.20); White Blood Cell Count 22.11 K/mm3 (4.00-11.30)
[2019-04-08 04:34] LABS: Alanine Aminotransfer (ALT/SGP 20 U/L (12-78); Albumin/Globulin Ratio 0.2 (0.8-1.8); Alk Phos 163 U/L (50-136); Anion Gap 5 mmol/L (6-16); Aspartate Aminotrans (AST/SGOT 32 U/L (12-37); Bilirubin, Total 0.4 mg/dL (0.1-1.0); Blood Urea Nitrogen 16 mg/dL (8-24); Bun/Creatinine Ratio 23.5 (12.0-20.0); CO2, Blood 24 mmol/L (21-32); Calcium, Blood 7.6 mg/dL (8.5-10.1); Chloride, Blood 112 mmol/L (98-108); Creatinine, Blood 0.68 mg/dL (0.40-1.00); Globulin, Blood 4.4 g/dL (2.2-4.0); Glomerular Filtration Rate >60 (60-); Glucose, Blood 71 mg/dL (70-99); Magnesium, Blood 1.7 mg/dL (1.6-2.4); Phosphorus, Blood 3.3 mg/dL (2.5-4.9); Sodium, Blood 141 mmol/L (136-145); Total Protein, Blood 5.4 g/dL (6.4-8.2)
--- NOTE | 2019-04-08 06:33 | NUR ---
[place] DRAINAGE HAS DECREASED. NO COMPLAINTS OF GI DISTRESS WITH C-DIFF. PT STATES THAT SHE HAS HAD A MUCH BETTER NIGHT. HAS BEEN ABLE TO REST SOME. HAS TOLERATED Q 2 HOUR TURNS IN BED. HAVE MADE USE OF CEILING LIFT. WILL CONTINUE TO MONITOR PT, AND WILL REPORT OFF TO ONCOMING RN.
--- NOTE | 2019-04-08 08:09 | NUR ---
ASSUMED CARE: RECEIVED REPORT FROM NOC RN. NO CHANGES NOTED T/O THE NIGHT OTHER THAN INCREASING TUBE FEEDINGS PER ORDERS. NO ACUTE DISTRESS NOTED WHEN CHECKING IN ON PT. PT IS NOTED TO BE ON CPAP AND RESTING WITH EVEN CHEST RISE AND FALL THAT IS TACHY PREVIOUSLY NOTED ON OTHER SHIFTS. O2 SATURATIONS ARE NOTED TO BE 98% AT THIS TIME. WILL CONTINUE TO MONITOR AND ASSESS FURTHER.
[2019-04-08 13:07] LABS: Vancomycin, Random 15.9 ug/mL
--- NOTE | 2019-04-08 17:48 | NUR ---
SHIFT SUMMARY: PHYSICAL THERAPY WORKED WITH PT THIS MORNING AND PT HAS BEEN UP IN THE CHAIR SINCE THEN, REPOSITIONING FROM RECLINING TO SITTING UP STREIGHT. PT DID OWN ORAL CARE AND HAS BEEN FOLLOWING THROUGH WITH USING HER INSENTIVE SPIROMETER. PT HAS BEEN ON THE AIRVO T/O THE DAY SINCE GETTING UP TO THE RECLINER WITHOUT HAVING TO BE PLACED BACK ON THE CPAP. VSS T/O THE DAY. CALL LIGHT IN REACH. WILL CONTINUE TO MONITOR AND REPORT TO ONCOMING RN.
--- NOTE | 2019-04-08 20:07 | NUR ---
ASSUMED PT CARE FROM MOI STORY PT UP IN RECLINER. ALERT AND ORIENTED X4; ABLE TO MAKE NEEDS KNOWN. VERY RESISTANT TO CARES, BUT AFTER EXPLAINING REASONING TO PT; SHE AGREES WITH CARE. UPON ASSUMPTION OF CARE DOBHOFF WAS NO LONGER PATENT; ATTEMPTED TO PULL OUT SLIGHTLY AND FLUSH; HOWEVER, UNSUCCESSFUL. THEREFORE, DOBHOFF PULLED ALL THE WAY OUT. CALL OUT TO DR. JONES IN REGARDS TO REPLACING DOBHOFF FOR PER TUBE VANCO DOSES OR IF DOBHOFF CAN REMAIN OUT. NEW ORDERS TO TRY TO ADMINISTER VANCO NOW IT IS UNKNOWN IF 1800 DOSE WAS ADMINISTERED OR STUCK IN DOBHOFF TUBING. IF UNSUCCESSFUL VIA PO; ORDERS TO REINSERT DOBHOFF AND ADMINISTER PER TUBE. ABDOMINAL DRESSING IS CDI; WILL CHANGE AFTER BED BATH. ANJU DRAIN PATENT AND DRAINING SCANT AMOUNTS OF YELLOW DRAINAGE. WILL ALSO CHANGE DRESSING TO BUTTOCKS AT THAT TIME WELL. PT AGREES WITH PLAN OF ACTION. OFFERED ORAL CARES, PT STATED SHE WAS FEELING FATIGUED; WILL RE-APPROACH LATER. PT APPEARS COMFORTABLE AT THIS TIME STATES SHE IS IN 7/10 PAIN; BUT ALSO STATES THAT IS GENERALLY WHERE HER PAIN IS AT. STATES HER GOAL WOULD BE A 4/10 AND THAT AFTER MEDICATION IT GENERALLY GETS TO A 4. MORPHINE IS AVAILABLE PRN; HOWEVER, BLOOD PRESSURES ARE ON THE LOWER SIDE WITH SBP 80'S; MAP'S GREATER THAN 65. WILL SEE IF NON-PHARMACOLOGICAL MEASURES, SUCH REPOSITIONING ARE EFFECTIVE BEFORE USING MEDICATIONS. WILL OFFER ICE AND/OR HEAT THERAPY WELL. CALL LIGHT IS WITHIN REACH; PT ABLE TO MAKE NEEDS KNOWN. NO FAMILY AT BEDSIDE AT THIS TIME.
[2019-04-09 04:02] LABS: Vancomycin, Random 24.1 ug/mL
--- NOTE | 2019-04-09 06:37 | NUR ---
END OF SHIFT SUMMARY NO SIGNIFICANT CHANGES FROM LAST NOTE ENTRY. PT REMAINS ALERT AND ORIENTED AND ABLE TO MAKE HER NEEDS KNOWN. CONTINUES TO REFUSE CARES. EDUCATION GIVEN IN REGARDS RISK FACTORS OF NON-COMPLIANCE, SUCH UTI FROM REFUSING ISAAC CARE WHEN COVERED IN FECES, WORSENING OF PRESSURE ULCER FROM REFUSING TO BE TURNED AND/OR NEW AREAS OF SKIN BREAKDOWN. PT STATED SHE DIDN'T CARE AND THAT SHE HAD THE RIGHT TO REFUSE CARE. CONFIRMED WITH PT THAT SHE DID HAVE THE RIGHT TO REFUSE, BUT ALSO ASKED HER WHAT HER GOAL WAS; IF IT WAS TO STAY HERE IN THE HOSPITAL OR GET BETTER AND GO HOME. PT STATED SHE WAS JUST TIRED. PT REASSURED WITH UNDERSTANDING AND EMPATHY; HOWEVER, CONTINUED TO STRONGLY ENCOURAGE HER TO PARTICIPATE WITH CARES. PT STARTED TO BE MORE COOPERATIVE TOWARD END OF SHIFT. SHE WOULD STATE SHE DIDN'T WANT TO, BUT WOULD THEN HELP AND ASSIST WITH TURNING. PT TOLERATED PO THIN LIQUIDS VERY WELL T/O NIGHT; CONSUMED A LARGE VOLUME OF FLUID VIA PO. COMPLIANT WITH ORAL VANCO DOSES. CALL LIGHT LEFT WITHIN REACH; PT ABLE TO MAKE NEEDS KNOWN. WILL CONTINUE TO MONITOR UNTIL REPORT IS HANDED OFF TO ONCOMING RN.
[2019-04-09 08:45] LABS: BASOPHILS ABSOLUTE AUTO 0.03 K/mm3 (0.00-0.23); BASOPHILS PERCENT AUTO 0 % (0-2); EOSINOPHILS ABSOLUTE AUTO 0.21 K/mm3 (0.00-0.68); EOSINOPHILS PERCENT AUTO 1 % (0-6); Hematocrit 23.9 % (33.0-51.0); Hemoglobin 7.3 g/dL (11.5-16.0); IMMATURE GRAN ABSOLUTE AUTO 0.16 K/mm3 (0.00-0.10); IMMATURE GRAN PERCENT AUTO 1 % (0-1); LYMPHOCYTES ABSOLUTE AUTO 1.37 K/mm3 (0.84-5.20); LYMPHOCYTES PERCENT AUTO 8 % (21-46); MONOCYTES ABSOLUTE AUTO 0.82 K/mm3 (0.16-1.47); MONOCYTES PERCENT AUTO 5 % (4-13); Mean Corpuscular HGB 23.2 pg (26.0-34.0); Mean Corpuscular HGB Conc 30.5 g/dL (31.5-36.5); Mean Corpuscular Volume 76 fL (80-100); Mean Platelet Volume 9.1 fL (9.1-12.4); NEUTROPHILS ABSOLUTE AUTO 13.64 K/mm3 (1.96-9.15); NEUTROPHILS PERCENT AUTO 84 % (41-73); Platelet Count 489 K/mm3 (150-400); RDW Coefficient Variation 24.5 % (11.7-14.2); RDW Standard Deviation 67.3 fL (35.1-46.3); Red Blood Cell Count 3.15 M/mm3 (3.80-5.20); White Blood Cell Count 16.23 K/mm3 (4.00-11.30)
[2019-04-09 09:01] LABS: Anion Gap 5 mmol/L (6-16); Blood Urea Nitrogen 15 mg/dL (8-24); Bun/Creatinine Ratio 24.9 (12.0-20.0); CO2, Blood 25 mmol/L (21-32); Calcium, Blood 7.5 mg/dL (8.5-10.1); Chloride, Blood 107 mmol/L (98-108); Glomerular Filtration Rate >60 (60-); Glucose, Blood 60 mg/dL (70-99); Phosphorus, Blood 2.7 mg/dL (2.5-4.9); Potassium, Blood 3.6 mmol/L (3.5-5.5); Sodium, Blood 137 mmol/L (136-145)
--- NOTE | 2019-04-09 10:50 | NUR ---
DR JONES AT BEDSIDE FOR ASSESSMENT. CHANGED AIRVO SETTINGS TO 40% FIO2. STATED HE WANTED PT TO TRY NC AT 2-3 L/MIN.
--- NOTE | 2019-04-09 15:29 | NUR ---
ATTEMPTED TO WEAN FROM AIRVO WITH RESP CARE. WHEN PRESSURE REDUCED TO 35 L/MIN, PATIENT UNABLE TO TOLERATE WEAN WITH O2 SATURATIONS IN THE MID 80'S. AUNDREA UPTON RT NOTIFIED, PLACED SETTINGS AT 35 L/MIN AND 45% FIO2.
--- NOTE | 2019-04-09 18:00 | NUR ---
DRESSING CHANGED ON MIDLINE ABDOMEN. INCISION APPROXIMATED WITH TERELL WITH THE EXCEPTION OF TWO AREAS OF DEHISCENCE. SURROUNDING SKIN INTACT, NO ERYTHEMA OR EDEMA, NO OBSERVABLE S/S OF INFECTION. PROXIMAL OPENING WITH MOD SEROSANG DRAINAGE, DISTAL OPENING MODERATE SEROSANG DRAINAGE. PREVIOUS DRESSING REMOVED. INCISION AND SURROUNDING SKIN CLEANED WITH WOUND CLEANSER, PATTED DRY. OPENING ARE TOO SMALL FOR GAUZE, BOTH OPENINGS PACKED WITH IODOSORB GAUZE STRIPS USING STERILE COTTON SWABS. CPVERED WITH 4X4 GAUZE, THEN ABD PAD NAD SECURED WITH CLOTH TAPE. PT TOLERATED WELL.
--- NOTE | 2019-04-09 18:27 | NUR ---
REPORT GIVEN TO TAYLOR PRATER IN PCU. PT TRANSFERRED VIA HER RECLINER WITH MEDICATIONS AND TREATMENTS TO PCU 10, WITH RT MANAGING AIRVO.
--- NOTE | 2019-04-09 19:15 | NUR ---
ASSUME CARE: REPORT RECIEVED FROM TAYLOR OFF GOING RN. MONITOR INTACT SHOWING SINUS RHYTHM HEART RATE 80'S-90'S. VISITS WITH FAMILY . LUNGS CLEAR BRYAN WITH DECREASED SOUNDS THROUGHOUT. O2 IN PLACE AT 21L/MIN PER OXIMIZER WITH RESPIRATIONS 20-22//MIN AND SPO2 93-96%. ABDOMEN SOFT TENDER WITH DRESSING DRY AND INTACT TO MIDLINE. ANJU DRAIN PATENT WITH SERROUS/SANG RETURN. JETT PATENT DRAINING ZOEY URINE RECTAL TUBE PATENT WITH DARK BROWN LIQUID STOOL RETURN. GENERALIZED DEPENDENT EDEMA NOTED. REFUSES OFFER TO GET IN THE BED. CONTINUE TO MONITOR AND REPORT CHANGE IN PATIENT CONDITION. REMAIKNS IN ISOLATION FOR POSITIVE C DIFF
--- NOTE | 2019-04-09 19:32 | NUR ---
TRANSFER NOTE/SHIFT SUMMARY RECEIVED REPORT FROM MOI ABERNATHY IN ICU. PT TO ROOM VIA RECLINER AT 1830. PT ORIENTED TO ROOM AND CALL LIGHT. PT A&Ox3. PT REPORTING PAIN T/O SHIFT PER REPORT. PT SOB WITH MOVEMENT, SPO2 >90% ON 12L O2 VIA OXYMIZER. PREVIOUSLY ON AIRVO, WHICH IS AT BEDSIDE. LS DIM T/O. PT DENIES NAUSEA, TRANSITIONED TO CLEARS, APPEARS TO TOLERATING WELL. BS HYPOATIVE x4 QUAD. JETT IN PLACE AND DRAINING. RECTAL TUBE IN PLACE. PT RECEIVING IV AND PO ANTIBIOTICS. VSS. NO OTHER ACUTE CHANGES NOTED. REPORT GIVEN TO TESFAYE PRATER
--- NOTE | 2019-04-09 22:03 | NUR ---
DENIES NEED TO RETURN TO BED AT THIS TIME STATES IS NOT WET OR "MESSY" STATES "i WILL LET YOU KNOW IF I NEED CHANGED" REQUESTS PRN PAIN MED FOR INCISIIONAL PAIN. MEDICATED WITH ROXINOL 5MG AT 2130. CONTINUE TO MONITOR AND REPORT CHANGE IN PATIENT CONDITION.
[2019-04-10 04:26] LABS: BASOPHILS ABSOLUTE AUTO 0.05 K/mm3 (0.00-0.23); BASOPHILS PERCENT AUTO 0 % (0-2); EOSINOPHILS ABSOLUTE AUTO 0.14 K/mm3 (0.00-0.68); EOSINOPHILS PERCENT AUTO 1 % (0-6); Hematocrit 24.7 % (33.0-51.0); Hemoglobin 7.4 g/dL (11.5-16.0); IMMATURE GRAN PERCENT AUTO 1 % (0-1); LYMPHOCYTES ABSOLUTE AUTO 1.16 K/mm3 (0.84-5.20); LYMPHOCYTES PERCENT AUTO 9 % (21-46); MONOCYTES ABSOLUTE AUTO 0.75 K/mm3 (0.16-1.47); MONOCYTES PERCENT AUTO 6 % (4-13); Mean Corpuscular HGB 22.9 pg (26.0-34.0); Mean Corpuscular Volume 77 fL (80-100); Mean Platelet Volume 9.1 fL (9.1-12.4); NEUTROPHILS ABSOLUTE AUTO 11.35 K/mm3 (1.96-9.15); NEUTROPHILS PERCENT AUTO 84 % (41-73); Platelet Count 464 K/mm3 (150-400); RDW Coefficient Variation 24.5 % (11.7-14.2); RDW Standard Deviation 67.7 fL (35.1-46.3); Red Blood Cell Count 3.23 M/mm3 (3.80-5.20); White Blood Cell Count 13.55 K/mm3 (4.00-11.30)
[2019-04-10 04:44] LABS: Anion Gap 5 mmol/L (6-16); Blood Urea Nitrogen 12 mg/dL (8-24); Bun/Creatinine Ratio 18.5 (12.0-20.0); CO2, Blood 27 mmol/L (21-32); Calcium, Blood 7.4 mg/dL (8.5-10.1); Chloride, Blood 107 mmol/L (98-108); Creatinine, Blood 0.65 mg/dL (0.40-1.00); Glomerular Filtration Rate >60 (60-); Glucose, Blood 65 mg/dL (70-99); Phosphorus, Blood 3.2 mg/dL (2.5-4.9); Potassium, Blood 3.9 mmol/L (3.5-5.5); Sodium, Blood 139 mmol/L (136-145); Vancomycin, Random 13.3 ug/mL
--- NOTE | 2019-04-10 06:30 | NUR ---
SHIFT SUMMARY: RESTS QUIETLY WHEN UNDISTURBED FOR SHORT INTERVALS. MONITOR INTACE SHOWING SINUS RHYTHM HEART RATE 80'S-100'S, LUNG SOUNDS CLEAR UPPER LOBES DISTANT/DECREASED IN THE BASES BECOMES SOB WITH ANY ACTIVITY O2 IN PLACE AT 12L/MIN PER OXIMIZER. SPO2 94-98% ABDOMEN SOFT MIDLINE INCISION DRESSING INTACT WITH ANJU DRAIN PATENT WITH SERROUS SANG DRAINAGE. DRESSINGS ON BUTTOCKS AND COCCYX INTACT RECTALL TUBE PATENT DRAINING DARK BROWN LIQUID STOOL. JETT PATENT DRAINING ZOEY URINE.GENERALIZED EMEMA ESPECIALLY TO EXTREMITIES. EXTREMITIES PLACED ON PILLOWS. CONTINUE TO MONITOR AND REPORT CHANGE IN PATIENT CONDITION.
--- NOTE | 2019-04-11 06:35 | NUR ---
Shift Summary No acute concerns overnight. Pt with rectal tube patent and draining, andrade continued per clinical judgement d/t extensive wounds to coccyx and abd. Nancy area cleansed this shift and cath care provided. Pt repositioned thoughout shift when pt compliant with turns and repositions. Pt educated on need for repositions to aid in wound healing and prevention of further skin breakdown. VSS, breathing is often tachypneic at rest. Pt on oxymizer at 8L. No acute declines to note and no changes from initial shift assessment Pt with PICC to JUAREZ and powerglide to DIONNE, patent and site WNL. CBG stable this shift. Will continue to monitor until day RN assumes care.
[2019-04-11 08:57] LABS: Vancomycin, Trough 17.3 ug/mL (5.0-10.0)
--- NOTE | 2019-04-11 17:37 | NUR ---
Pt resting in bed upon arrival. Pt reports 7/10 pain in her abdomen. Bedside nurse Saniya arrives and offers pain medication. Pt reports current regimen is managing her pain. Pt reports significant anxiety and severe depression. Listened as Pt discusses recent deaths of family members and the loss of a beloved pet all occuring this past year. She also reports emotional distress related to her son who lacks motivation to improve his health. Pt reports her , son, daughter and son in law all live in the same house hold as her. Pt reports independence at base line and admits to lacking motivation to work with therapy due to her depression. Educated Pt on consequences of deconditioning. Discussed idea of starting on anti depressant and Pt is agreeable. Dinner has arrived and this RN ended visit. Pt is agreeable to continued visits from palliative care. Spoke with bedside nurse Viry and discussed case. Spoke with Dr Arellano and discussed case. Dr Arellano reports she will consider starting Pt on anti depressant medication tomorrow. Palliative Care will remain available for continued therapeutic visits. Pt may benefit from counseling referral upon discharge.
--- NOTE | 2019-04-11 17:41 | NUR ---
SHIFT SUMMARY PT RESTING IN BED THROUGHOUT THE DAY. UP TO RECLINER VIA CEILING LIFT. ALERT AND ORIENTED X3, SLOW TO RESPOND AT TIMES. PT IS MORE TALKATIVE TODAY THAN YESTERDAY. JETT REMOVED. PT ENCOURAGED TO CALL FOR BEDPAN WHEN SHE NEEDS TO VOID. LUNG SOUNDS CLEAR, DIMINISHED BASES. TITRATED TO 4L VIA OXYMIZER, SATURATIONS IN THE MID 90s. WOUNDS TO COCCYX COVERED WITH MEPILEX, ABDOMINAL DRSG CDI. SANGUINOUS DRAINAGE NOTED. DR. PABON REMOVED ANJU DRAIN THIS AFTERNOON. PT DID NOT WANT TO WORK WITH PT/OT TODAY. SEE PT/OT NOTES. WILL CONTINUE TO MONITOR AND REPORT OFF TO CURATOR OF COLLECTIONS RN.
[2019-04-12 04:53] LABS: Hematocrit 25.1 % (33.0-51.0); Hemoglobin 7.3 g/dL (11.5-16.0); Mean Corpuscular HGB 22.7 pg (26.0-34.0); Mean Corpuscular HGB Conc 29.1 g/dL (31.5-36.5); Mean Corpuscular Volume 78 fL (80-100); Mean Platelet Volume 9.1 fL (9.1-12.4); Platelet Count 457 K/mm3 (150-400); RDW Standard Deviation 69.3 fL (35.1-46.3); Red Blood Cell Count 3.21 M/mm3 (3.80-5.20); White Blood Cell Count 12.51 K/mm3 (4.00-11.30)
[2019-04-12 05:20] LABS: Albumin, Blood 1.1 g/dL (3.4-5.0); Anion Gap 6 mmol/L (6-16); Blood Urea Nitrogen 13 mg/dL (8-24); Bun/Creatinine Ratio 17.1 (12.0-20.0); CO2, Blood 25 mmol/L (21-32); Calcium, Blood 7.6 mg/dL (8.5-10.1); Chloride, Blood 107 mmol/L (98-108); Creatinine, Blood 0.76 mg/dL (0.40-1.00); Glomerular Filtration Rate >60 (60-); Glucose, Blood 85 mg/dL (70-99); Phosphorus, Blood 3.2 mg/dL (2.5-4.9); Sodium, Blood 138 mmol/L (136-145)
[2019-04-12 05:38] LABS: BASOPHILS PERCENT MAN 0 % (0-2); EOSINOPHILS ABSOLUTE MAN 0.25 K/mm3 (0.00-0.68); EOSINOPHILS PERCENT MAN 2 % (0-6); LYMPHOCYTES ABSOLUTE MAN 0.25 K/mm3 (0.84-5.20); LYMPHOCYTES PERCENT MAN 2 % (21-46); MONOCYTES ABSOLUTE MAN 0.37 K/mm3 (0.16-1.47); MONOCYTES PERCENT MAN 3 % (4-13); MYELOCYTE ABSOLUTE MAN 0.25 K/mm3 (0.00-0.00); MYELOCYTE PERCENT MAN 2 % (0-0); NEUTROPHILS ABSOLUTE MAN 11.38 K/mm3 (1.96-9.15); SEG NEUTROPHILS PERCENT MAN 91 % (41-73); TOTAL CELLS COUNTED 100
--- NOTE | 2019-04-12 06:35 | NUR ---
Shift Summary Pt with no acute events overnight. VSS. Calling appropriately this shift. Making needs known. Pt refusing turns throughout the shift, pt educated throughout this shift for need for repositions. Pillows tucked and adjusted at tolerated. Pt is alert and oriented, breathing easy and unlabored 4L oxymizer. Rectal tube intact, patent and draining stool. Pt called to use bedpan x1 this shift, voided without difficulty. Midline wound dressed by day shift, remains CDI this shift. R ABD ANJU drain removed day shift, site remains WNL. Coccyx wounds with mepilex and foam coverage. PICC line and powerglide patent, flushes and draws. Pt with complaint of pain x2 this shift, medicated per orders. CXR completed this AM. Pt with hbg of 7.3 this AM, discussed with bullet swaging machine adjuster, Teagan Yost, value conistant with hbg value over entire hospital stay. Will pass value along to day RN. No events on tele noted. No acute concerns overnight. Will continue to monitor and report off to day RN.
--- NOTE | 2019-04-12 09:35 | NUR ---
AM NOTE. ASSUMED CARE OF PT APROX 0700. PT IS A&Ox4, PT IS S/P ULCER PERF W/SURGICAL INTERVENTIONS. PT IS IN ISOLATION D/T CDIFF. PT HAS STAGE 4 PRESSURE ULCERS ON HER COCCYX, MEPILEX C/D/I AT THIS TIME, RECTAL TUBE IS PRESENT AND DRAINING TO GRAVITY. PER NOC SHIFT RN REPORT PT HAS BEEN REFUSING REPOSITIONING, PT WAS EDUCATED ON PRESSURE ULCERS, SKIN CARE AND PREVENTION OF PRESSURE ULCERS, PT STILL REFUSED TURNING FOR THIS RN. PT HAS 3+ EDEMA TO THE TOPS OF HER FEET, 2+ TO HER BLE. PT IS HYPOTENSIVE AT 90/53 MAP OF 65. PT STATES "MY BP HAS ALWAYS BEEN LOW." PT IS NOT SYMPTOMATIC AND PER DOCUMENTED BPS THIS IS THE PT'S AVERAGE. L/S CLEAR IN THE UPPER LOBES AND DIM IN THE LOWER, PT WAS ON 4L NC AT WHEN THIS RN CAME INTO THE PT'S ROOM, PT'S O2 SATS WERE 98%, O2 WAS TITRATED TO 2 L NC, PT'S O2 SATS CURRENTLY AT 95% AND TOLERATING THIS WELL. BT PRESENT AND HYPOACTIVE, ABD IS MILDLY DISTENTED, FIRM AND TENDER TO PALP. MIDLIN INSC NOTED, DRESSING IS NOTED TO HAVE SOME DRAINAGE, WILL CHANGE DRESSING THIS SHIFT. WILL CONTINUE TO MONITOR.
[2019-04-13 04:19] LABS: BASOPHILS ABSOLUTE AUTO 0.07 K/mm3 (0.00-0.23); BASOPHILS PERCENT AUTO 1 % (0-2); EOSINOPHILS ABSOLUTE AUTO 0.17 K/mm3 (0.00-0.68); EOSINOPHILS PERCENT AUTO 1 % (0-6); Hematocrit 24.9 % (33.0-51.0); Hemoglobin 7.2 g/dL (11.5-16.0); IMMATURE GRAN ABSOLUTE AUTO 0.13 K/mm3 (0.00-0.10); IMMATURE GRAN PERCENT AUTO 1 % (0-1); LYMPHOCYTES ABSOLUTE AUTO 1.22 K/mm3 (0.84-5.20); LYMPHOCYTES PERCENT AUTO 9 % (21-46); MONOCYTES ABSOLUTE AUTO 0.91 K/mm3 (0.16-1.47); MONOCYTES PERCENT AUTO 7 % (4-13); Mean Corpuscular HGB 22.9 pg (26.0-34.0); Mean Corpuscular HGB Conc 28.9 g/dL (31.5-36.5); Mean Corpuscular Volume 79 fL (80-100); Mean Platelet Volume 8.9 fL (9.1-12.4); NEUTROPHILS ABSOLUTE AUTO 11.17 K/mm3 (1.96-9.15); NEUTROPHILS PERCENT AUTO 82 % (41-73); Platelet Count 451 K/mm3 (150-400); RDW Coefficient Variation 25.5 % (11.7-14.2); RDW Standard Deviation 70.9 fL (35.1-46.3); Red Blood Cell Count 3.15 M/mm3 (3.80-5.20); White Blood Cell Count 13.67 K/mm3 (4.00-11.30)
[2019-04-13 04:39] LABS: Albumin, Blood 1.1 g/dL (3.4-5.0); Anion Gap 4 mmol/L (6-16); Blood Urea Nitrogen 14 mg/dL (8-24); Bun/Creatinine Ratio 17.5 (12.0-20.0); CO2, Blood 27 mmol/L (21-32); Calcium, Blood 7.4 mg/dL (8.5-10.1); Chloride, Blood 106 mmol/L (98-108); Glomerular Filtration Rate >60 (60-); Glucose, Blood 103 mg/dL (70-99); Phosphorus, Blood 3.3 mg/dL (2.5-4.9); Potassium, Blood 4.1 mmol/L (3.5-5.5); Sodium, Blood 137 mmol/L (136-145)
--- NOTE | 2019-04-13 05:36 | NUR ---
Shift Summary No acute declines to note overnight. Pt VSS, no apparent sign of distress, titrated from 4L NC to 2.5L NC with o2 saturations maintained at >92% and pt denies respiratory sx of SOB or [place]. Alert and oriented, moves all extremities independantly and without pain with passive or active stretch. Pt continues to refuse majority of position changes, encouraged and educated on skin breakdown and pressure ulcers. Pt expresses "I have anxiety when i get turned" this RN provided active listening and therapeutic communication with pt. Dressings changed this shift: mepilex to coccyx, barrier cream applied. ABD midline dressing changed. PICC line dressing changed. Pt painful this shift requiring multiple administrations of pain medication all per orders. Pt states relief but continues to complain of "constant pain". Pt able to sleep on and off this shift but overall not getting uninterrupted or quality rest. No acute declines to note overnight. No acute concerns. No changes from initial shift assessment.
--- NOTE | 2019-04-13 09:05 | NUR ---
AM NOTE. ASSUMED CARE OF PT APROX 0700. PT IS A&Ox4. PT HAS MIDLINE SITE FROM SURGERY DONE APROX 2 WEEKS AGO. PT HAS STAGE 4 PRESSURE ULCER ON HER BUTTOCKS/COCCYX. PT HAS REFUSED TURNING ALREADY THIS AM. PT STATING "I AM TIRED AND HAD A LONG NIGHT." PT EDUCATED AGAIN ON SKIN CARE/PRESSURE ULCER HEALING/PREVENTION. PT STATED HER UNDERSTANDING. PT ALSO STATING PAIN WAS A BIG FACTOR IN HER NOT WANTING TO BE TURNED, PT HAS BEEN MEDICATED PER EMAR. PT'S VS STABLE AT THIS TIME. PT DENIES ANY CHEST PAIN/PRESSURE N/V OR INCREASED SOB. PT IS CURRENTLY ON 2L NC, WILL CONTINUE TO TITRATE JEANMARIE. WILL CONTINUE TO MONITOR.
--- NOTE | 2019-04-13 17:37 | NUR ---
SHIFT SUMMARY. NO ACUTE NEGATIVE CHANGES NOTED THIS SHIFT. PT'S VS HAVE BEEN STABLE. PT HAS BEEN RELUCTANT TO WORK WITH STAFF AND HELP WITH ADLS. PT WAS UP IN THE RECLINER CHAIR FOR LUNCH BUT REFUSED TO GET UP FOR DINNER. PT HAS ALSO REFUSED Q2 TURNS AT TIMES. PT HAS HAD FAMILY AT THE BEDSIDE OFF AND ON T/O THE DAY. PT HAS BEEN INCONT ALL SHIFT, PT WAS ABLE TO USE THE BEDPAN YESTERDAY. PT IS TO TRANSFER TO THE MEDICAL FLOOR, REPORT GIVEN TO MED FLOOR RN. PT'S CBG WAS 55, PT WAS GIVEN DINNER, LAST CHECK WAS 64. PT'S CBG TRENDS HAVE BEEN IN THE 60'S-70'S, PT IS NOT SYMPTOMATIC AT THIS TIME. CALL LIGHT IN REACH, BED IS LOCKED AND LOW WILL CONTINUE TO MONITOR UNTIL PT IS TRANSFERED TO MEDICAL FLOOR.
--- NOTE | 2019-04-13 18:41 | NUR ---
TRANSFER NOTE RECEIVED HANDOFF FROM PCU NURSE YURY. PT HYPOGLYCEMIC. PCU FED PT DINNER FIRST AND RETOOK GLUCOSE LEVEL AT MY REQUEST. PT GLUCOSE RETURNED TO HER BASELINE. PT TRANSFERED TO FLOOR. MEDICATION REFRIGERATED ORDERED. PERSONAL BELONGINGS PLACED IN ROOM. PT ORIENTED TO UNIT
--- NOTE | 2019-04-13 23:04 | NUR ---
CBG 82 AND ON 2L O2 NC. REPORTED ABDOMEN PAIN AND RECEIVED OXYCODONE 10 MG PO PER EMAR. NO OTHER CONCERNS AT THIS TIME. WATCHING TV. ORAL VANCO SCHEDULED. WILL CONTINUE TO MONITOR. CALL LIGHT IN REACH.
--- NOTE | 2019-04-14 04:34 | NUR ---
SHIFT SUMMARY PATIENT HAD NO ACUTE CHANGES OBSERVED THIS SHIFT. AXOX 3 AND BEDFAST. CBG 82 IMPROVED FROM DAY SHIFT. MORBID OBESE AND ON 2L 02 NC WITH RA BASELINE. PIC LINE JUAREZ AND POWERGLIDE DIONNE INTACT. VSS/AFEBRILE. REPORTED ABDOMEN PAIN X TWO AND OXYCODONE 10 MG GIVEN PER EMAR. ORAL VANCO GIVEN PER EMAR. ABDOMEN DRESSING C/D/I. NYSTATIN POWDER TO ISAAC AREA. MEPILEX CHANGED ON COCCYX. INCONTINENT WITH C-DIFF. CALL LIGHT IN REACH. BED IN LOWEST POSITION. WILL CONTINUE TO MONITOR UNTIL DAY SHIFT NURSE ASSUMES CARE.
[2019-04-14 04:39] LABS: BASOPHILS ABSOLUTE AUTO 0.03 K/mm3 (0.00-0.23); BASOPHILS PERCENT AUTO 0 % (0-2); EOSINOPHILS ABSOLUTE AUTO 0.12 K/mm3 (0.00-0.68); EOSINOPHILS PERCENT AUTO 1 % (0-6); Hematocrit 25.5 % (33.0-51.0); Hemoglobin 7.4 g/dL (11.5-16.0); IMMATURE GRAN ABSOLUTE AUTO 0.11 K/mm3 (0.00-0.10); IMMATURE GRAN PERCENT AUTO 1 % (0-1); LYMPHOCYTES ABSOLUTE AUTO 1.43 K/mm3 (0.84-5.20); LYMPHOCYTES PERCENT AUTO 11 % (21-46); MONOCYTES ABSOLUTE AUTO 0.82 K/mm3 (0.16-1.47); MONOCYTES PERCENT AUTO 6 % (4-13); Mean Corpuscular HGB 23.2 pg (26.0-34.0); Mean Corpuscular Volume 80 fL (80-100); Mean Platelet Volume 9.2 fL (9.1-12.4); NEUTROPHILS ABSOLUTE AUTO 11.03 K/mm3 (1.96-9.15); NEUTROPHILS PERCENT AUTO 81 % (41-73); Platelet Count 501 K/mm3 (150-400); RDW Coefficient Variation 25.5 % (11.7-14.2); RDW Standard Deviation 72.7 fL (35.1-46.3); Red Blood Cell Count 3.19 M/mm3 (3.80-5.20); White Blood Cell Count 13.54 K/mm3 (4.00-11.30)
[2019-04-14 04:59] LABS: Albumin, Blood 1.1 g/dL (3.4-5.0); Anion Gap 7 mmol/L (6-16); Blood Urea Nitrogen 14 mg/dL (8-24); Bun/Creatinine Ratio 17.6 (12.0-20.0); CO2, Blood 25 mmol/L (21-32); Calcium, Blood 7.5 mg/dL (8.5-10.1); Chloride, Blood 106 mmol/L (98-108); Creatinine, Blood 0.79 mg/dL (0.40-1.00); Glomerular Filtration Rate >60 (60-); Glucose, Blood 82 mg/dL (70-99); Potassium, Blood 3.9 mmol/L (3.5-5.5); Sodium, Blood 138 mmol/L (136-145)
--- NOTE | 2019-04-14 17:55 | NUR ---
SHIFT SUMMARY NO ACUTE CONCERNS AT THIS TIME. PATIENT IS PLEASANT. SHE UNDERSTANDS THAT SHE IS STARTING TO FEEL BETTER BUT THAT SHE DOES NEED TO CONTINUE TO MOVE IN ORDER TO GET BETTER. DR. PABON SAW THE PATIENT TODAY AND ASSESSED THE WOUNDS ON HER BOTTOM WELL REMOVED HALF THE ABDOMINAL TERELL. THE WOUND IS STILL LEAKING MILDLY FROM HER ABDOMEN AND DRESSED APPROPRIATELY. DR. PABON STATED HE WOULD SEE HER TOMORROW OR THE NEXT DAY.
--- NOTE | 2019-04-15 06:43 | NUR ---
SHIFT SUMMARY PT IS A 48 Y/O FEMALE, ADMITTED FOR A PERFORATED DUODENAL ULCER. SHE IS A&O X 3, AND CURRENTLY ON BEDREST. PT DENIED ANY COMPLAINTS OF ACUTE PAIN, NAUSEA OR SOB, AND SLEPT WELL DURING THE NIGHT. PT'S BP WAS SLIGHTLY LOW THIS AM AT 96/56. ALL OTHER VITALS STABLE. NO OTHER ACUTE CHANGES IN PT CONDITION NOTED DURING THE NIGHT. WILL CONTINUE TO MONITOR AND TREAT PER EMAR UNTIL HAND OFF TO DAY SHIFT RN.
--- NOTE | 2019-04-15 17:28 | NUR ---
SHIFT SUMMARY PATIENT HAS HAD SYMPTOMATIC LOW BLOOD SUGAR TODAY. NEED TO KEEP AN EYE ON HER BLOOD SUGARS. DR. ROMERO HAS SWITCHED HER TO Q6 AND PRN CBGS IN ORDER TO MONITOR A BIT CLOSER. SHE IS A PLEASANT PATIENT BUT DOES NOTE TO BE DEPRESSED AND FLAT AFFECT. SHE HAS HAD 3 TOTAL BED CHANGES TODAY RELATED TO HER BOWEL MOVEMENTS WHICH SHE DOES NOT KNOW SHE IS HAVING. YESTERDAY SHE NOTED SHE KNEW WHEN SHE HAD TO URINATE AND AT THIS TIME SHE NO LONGER FEELS WHEN SHE HAS TO GO. WILL CONTINUE TO ASSESS AT THIS TIME.
[2019-04-16 05:14] LABS: BASOPHILS ABSOLUTE AUTO 0.04 K/mm3 (0.00-0.23); BASOPHILS PERCENT AUTO 0 % (0-2); EOSINOPHILS ABSOLUTE AUTO 0.23 K/mm3 (0.00-0.68); EOSINOPHILS PERCENT AUTO 2 % (0-6); Hematocrit 23.9 % (33.0-51.0); Hemoglobin 7.1 g/dL (11.5-16.0); IMMATURE GRAN ABSOLUTE AUTO 0.25 K/mm3 (0.00-0.10); IMMATURE GRAN PERCENT AUTO 2 % (0-1); LYMPHOCYTES ABSOLUTE AUTO 1.86 K/mm3 (0.84-5.20); LYMPHOCYTES PERCENT AUTO 12 % (21-46); MONOCYTES ABSOLUTE AUTO 1.35 K/mm3 (0.16-1.47); MONOCYTES PERCENT AUTO 9 % (4-13); Mean Corpuscular HGB 23.7 pg (26.0-34.0); Mean Corpuscular HGB Conc 29.7 g/dL (31.5-36.5); Mean Corpuscular Volume 80 fL (80-100); Mean Platelet Volume 8.9 fL (9.1-12.4); NEUTROPHILS ABSOLUTE AUTO 12.09 K/mm3 (1.96-9.15); NEUTROPHILS PERCENT AUTO 76 % (41-73); NRBC ABSOLUTE 0.03 K/mm3 (0.00-0.02); NRBC Auto 0.2 /100 WBC (0.0-0.2); Platelet Count 596 K/mm3 (150-400); RDW Coefficient Variation 25.3 % (11.7-14.2); RDW Standard Deviation 72.2 fL (35.1-46.3); Red Blood Cell Count 2.99 M/mm3 (3.80-5.20); White Blood Cell Count 15.82 K/mm3 (4.00-11.30)
--- NOTE | 2019-04-16 06:27 | NUR ---
SHIFT SUMMARY PT IS A 48 Y/O FEMALE, ADMITTED FOR A PERFORATED DUODENAL ULCER. SHE IS A&O X 4, AND CURRENTLY ON BEDREST. PT IS INCONTINENT OF STOOL, AND REFUSED TO BE TURNED OR CHANGED THIS AM AFTER HAVING AN EPISODE OF NAUSEA/VOMITING. THE HOSPITALIST DR BRAY WAS CONSULTED FOR IV ZOFRAN, WHICH HELPED TO ALLEVIATE THE PT'S NAUSEA. NO REPORTS OF ACUTE PAIN OR SOB. VITAL SIGNS STABLE. PT'S BLOOD SUGARS REMAINED STABLE IN THE 70-80S THROUGH THE NIGHT. NO OTHER ACUTE CHANGES IN PT CONDITION NOTED. WILL CONTINUE TO MONITOR AND TREAT PER EMAR UNTIL HAND OFF TO DAY SHIFT RN.
[2019-04-16 10:01] LABS: Percent Saturation 14.3 % (15.0-50.0)
--- NOTE | 2019-04-16 12:23 | NUR ---
SPOKE WITH YESENIA FROM PALLIATIVE CARE ABOUT HIS CURRENT CONCERNS AND WHAT IS GOING ON. HE REPORTS THAT SHE WAS OPENED WHEN SHE WAS IN PCU, AND THAT THE CURRENT CONCERN IS THAT SHE HAS SOME MAJOR DEPRESSION MAKING HER A FAILURE TO THRIVE. CURRENTLY AWAITING XRAY RESULTS FROMDAY. SHE HAS BEEN WORKING WITH PHYSICAL THERAPY BUT HAS NOT YET GOTTEN UP. I AM UNSURE HER NORMAL BASELINE THERE ARE CONFLICTING REPORTS FROM HER FAMILY AND FROM THE PATIENT.
--- NOTE | 2019-04-16 15:20 | NUR ---
Spoke with bedside nurse Mart prior to Pt visit and discussed case. New orders placed for new anti depressant and anti anxiety medications. Therapeutic visit this afternoon. Pt resting in bed upon arrival and denies pain at this time. Engaged in therapeutic discussion regarding depression, motivation, short term goals and detention goals. Pt reports her detention goal is to be back home. Bedside nurse Brittny is present for much of the visit. Pt reports short goal has been established with PT. Educated on the importance of keeping goals in focus. Discussed the importance of being a role model for her son. If her son sees Pt's motivation then son may also focus on his health. Pt reports plan to stay motivated and is agreeable with new anti depressant medication. No other concerns reported at this time. Palliative Care will remain available.
--- NOTE | 2019-04-16 18:14 | NUR ---
SHIFT SUMMARY PATIENT IS PLEASANT, ALERT AND ORIENTED. SHE WAS PLACED ON AN ANTIDEPRESSANT TODAY WELL AN ANTIANXIETY PRN. THIS HAS SEEMED TO HELP. SHE DID HAVE AN ABDOMINAL XRAY TODAY THAT NOTED GAS BUT NO FURTHER SIGNIFICANT FINDINGS THAT WE ARE AWARE OF. CURRENTLY THE PATIENT IS IN BED. SHE IS STILL INCONTINENT AND HAS BEEN PARTICIPATING IN HER CARE IN ORDER TO CHANGE HERSELF. SHE HAS SET A SHORT TERM AND JORDAN WORKER GOAL SO SHE CAN CONTINUE TO PROGRESS.
[2019-04-17 04:30] LABS: BASOPHILS ABSOLUTE AUTO 0.07 K/mm3 (0.00-0.23); BASOPHILS PERCENT AUTO 0 % (0-2); EOSINOPHILS ABSOLUTE AUTO 0.22 K/mm3 (0.00-0.68); EOSINOPHILS PERCENT AUTO 1 % (0-6); Hematocrit 24.4 % (33.0-51.0); Hemoglobin 7.2 g/dL (11.5-16.0); IMMATURE GRAN ABSOLUTE AUTO 0.32 K/mm3 (0.00-0.10); IMMATURE GRAN PERCENT AUTO 2 % (0-1); LYMPHOCYTES ABSOLUTE AUTO 2.07 K/mm3 (0.84-5.20); LYMPHOCYTES PERCENT AUTO 11 % (21-46); MONOCYTES ABSOLUTE AUTO 1.77 K/mm3 (0.16-1.47); MONOCYTES PERCENT AUTO 10 % (4-13); Mean Corpuscular HGB 23.9 pg (26.0-34.0); Mean Corpuscular HGB Conc 29.5 g/dL (31.5-36.5); Mean Corpuscular Volume 81 fL (80-100); Mean Platelet Volume 8.8 fL (9.1-12.4); NEUTROPHILS ABSOLUTE AUTO 14.15 K/mm3 (1.96-9.15); NEUTROPHILS PERCENT AUTO 76 % (41-73); NRBC ABSOLUTE 0.02 K/mm3 (0.00-0.02); NRBC Auto 0.1 /100 WBC (0.0-0.2); Platelet Count 661 K/mm3 (150-400); RDW Coefficient Variation 25.2 % (11.7-14.2); RDW Standard Deviation 73.2 fL (35.1-46.3); Red Blood Cell Count 3.01 M/mm3 (3.80-5.20)
--- NOTE | 2019-04-17 06:43 | NUR ---
SHIFT SUMMARY PT IS A 48 Y/O FEMALE, ORIGINALLY ADMITTED FOR A PERFORATED DUODENAL ULCER. SHE IS ON BEDREST, AND INCONTINENT. PT HAS SEVERE EXCORIATION AND A PRESSURE ULCER ON HER COCCYX, DRESSING WAS CHANGED ONCE DURING THE NIGHT. PT IS A&O X 4. SHE WAS MEDICATED ONCE FOR PAIN WITH PRN OXYCODONE, AND ONCE FOR NAUSEA WITH PRN ZOFRAN. NO COMPLAINTS OF SOB. PT IS ON 2L O2 VIA NC. VITALS REMAINED STABLE. PT CURRENTLY AWAITING PLACEMENT IN SNF. PT CAN REFUSED PERSONAL CARE OR TO BE TURNED AT TIMES. NO OTHER ACUTE CHANGES IN PT CONDITION NOTED. WILL CONTINUE TO MONITOR AND TREAT PER EMAR UNTIL HAND OFF TO DAY SHIFT RN.
--- NOTE | 2019-04-17 18:18 | NUR ---
SHIFT SUMMARY PATIENT MEDICATED X2 FOR PAIN AND X1 FOR NAUSEA. PATIENT DENIES SHORTNESS OF BREATH BUT CONTINUES TO REQUIRE 1-2L NC TO MAINTAIN OXYGEN SATURATION ABOVE 92%. PATIENT WORKED WITH PT TODAY. PATIENT Q2 REPOSITION BUT CAN ASSIST WITH ROLLING. PATIENT HAD CT OF ABDOMEN TODAY. CARE MANAGEMENT WORKING ON PLACEMENT/DISCHARGE OPTIONS FOR SNF RECOMMENDATION. CALL LIGHT IN REACH.
[2019-04-18 05:15] LABS: BASOPHILS ABSOLUTE AUTO 0.08 K/mm3 (0.00-0.23); BASOPHILS PERCENT AUTO 0 % (0-2); EOSINOPHILS ABSOLUTE AUTO 0.26 K/mm3 (0.00-0.68); EOSINOPHILS PERCENT AUTO 1 % (0-6); Hematocrit 24.4 % (33.0-51.0); Hemoglobin 7.1 g/dL (11.5-16.0); IMMATURE GRAN PERCENT AUTO 3 % (0-1); LYMPHOCYTES ABSOLUTE AUTO 2.42 K/mm3 (0.84-5.20); LYMPHOCYTES PERCENT AUTO 11 % (21-46); MONOCYTES ABSOLUTE AUTO 2.25 K/mm3 (0.16-1.47); MONOCYTES PERCENT AUTO 10 % (4-13); Mean Corpuscular HGB 23.7 pg (26.0-34.0); Mean Corpuscular HGB Conc 29.1 g/dL (31.5-36.5); Mean Corpuscular Volume 82 fL (80-100); Mean Platelet Volume 8.7 fL (9.1-12.4); NEUTROPHILS ABSOLUTE AUTO 15.84 K/mm3 (1.96-9.15); NEUTROPHILS PERCENT AUTO 74 % (41-73); NRBC ABSOLUTE 0.04 K/mm3 (0.00-0.02); NRBC Auto 0.2 /100 WBC (0.0-0.2); Platelet Count 694 K/mm3 (150-400); RDW Coefficient Variation 25.1 % (11.7-14.2); Red Blood Cell Count 2.99 M/mm3 (3.80-5.20); White Blood Cell Count 21.55 K/mm3 (4.00-11.30)
[2019-04-18 05:48] LABS: Anion Gap 6 mmol/L (6-16); Blood Urea Nitrogen 9 mg/dL (8-24); Bun/Creatinine Ratio 10.8 (12.0-20.0); CO2, Blood 27 mmol/L (21-32); Calcium, Blood 7.4 mg/dL (8.5-10.1); Chloride, Blood 103 mmol/L (98-108); Creatinine, Blood 0.84 mg/dL (0.40-1.00); Glomerular Filtration Rate >60 (60-); Glucose, Blood 88 mg/dL (70-99); Potassium, Blood 3.9 mmol/L (3.5-5.5); Sodium, Blood 136 mmol/L (136-145)
--- NOTE | 2019-04-18 06:41 | NUR ---
CONCRETE FLOOR INSTALLER SUMMARY PT A/OX4. PT EMOTIONAL EACH TIME WE CHANGED HER. ABD'S APPLIED TO DECUBITIS STAGE 2 ULCERS.PT W CLEANED EACH TIME AFTER BEING INCONTINENT. PT COMPLAINED OF PAIN AND WAS TEARFUL EACH TIME BEING CLEANED AND CHANGED. NYSTATIN POWDER APPLIED. PAIN MEDICATION GIVEN PER EMAR. VSS. WILL CONTINUE TO MONITOR.
--- NOTE | 2019-04-18 14:58 | NUR ---
ATTEMPTED TO CALL IN NEW CONSULT FOR DR. COLE PER ORDER AT THIS TIME. MESSAGE MACHINE STATES THAT DR. COLE IS ONLY TAKING NEW CONSULTS BY DIRECT COMMUNICATION FROM PHYSICANS. DR. ROMERO THEN NOTIFIED OF THIS AND WOULD LIKE NURSING STAFF TO CALL FOR CONSULT ON 04/20. WILL MAKE NEXT SHIFT AWARE
--- NOTE | 2019-04-18 15:42 | NUR ---
PT IS REFUSING PLACEMENT OF RECTAL TUBE AT THIS TIME. PT EDUCATED ON IMPORTANCE OF HAVING TUBE AND KEEPING ISAAC AREA CLEAN/DRY. PT STATES THAT TUBE IS TOO PAINFUL AND SHE DOES NOT WANT IT. DR. ROMERO MADE AWARE.
--- NOTE | 2019-04-18 15:47 | NUR ---
UA ORDERED FOR PT. PT HAS BEEN INCONTINENT OF URINE TODAY AND STATES THAT SHE DOES NOT KNOW WHEN SHE VOIDS. PT ASKED TO CALL WHEN SHE FEELS THE URGE TO VOID AND STAFF WILL PLACE A BEDPAN. WILL CTM
--- NOTE | 2019-04-18 17:30 | NUR ---
SUMMARY: PT IS S/P PERF ULCER REPAIR. NO ACUTE CHANGE TODAY. VSS, A/O. PT ABLE TO BE TURNED ABOUT Q4 TODAY, PT REFUSING REPOSITIONING AT TIMES. EDUCATED ON IMPORTANCE OF MOVING AND EXERCISE BY THIS RN WELL PT/OT, SEE NOTES. MEDICATED FOR BACK/ABD PAIN X1. BLOOD CULTURES DRAWN AND IV LEVAQUIN DOSE GIVEN. PLAN IS FOLLOW-UP ABD CT IN A FEW DAYS. NET FISHER CONTINIOUS TO WORK ON DISCHARGE PLAN. NO ACUTE SAFETY CONCERNS AT THIS TIME. PT DAUGHTERS AT BEDSIDE TONLUIS ANTONIO. WILL CTM AND REPORT TO NOC RN.
--- NOTE | 2019-04-19 01:19 | NUR ---
BLOOD SUGAR 79. PT COMPLAINED OF NAUSEA AND FEELING HOT. COOL WASHCLOTH APPLIED TO FOREHEAD. JUICE GIVEN TO COMBAT LOW BLOOD SUGAR. WILL CONTINUE TO MONITOR.
--- NOTE | 2019-04-19 02:08 | NUR ---
PT STATES NAUSEA HAS IMPROVED AFTER JUICE. RESTING CALMLY IN BED. WILL CONTINUE TO MONITOR.
[2019-04-19 05:31] LABS: BASOPHILS ABSOLUTE AUTO 0.09 K/mm3 (0.00-0.23); BASOPHILS PERCENT AUTO 0 % (0-2); EOSINOPHILS ABSOLUTE AUTO 0.07 K/mm3 (0.00-0.68); EOSINOPHILS PERCENT AUTO 0 % (0-6); Hematocrit 23.4 % (33.0-51.0); Hemoglobin 6.9 g/dL (11.5-16.0); IMMATURE GRAN PERCENT AUTO 4 % (0-1); LYMPHOCYTES ABSOLUTE AUTO 2.27 K/mm3 (0.84-5.20); LYMPHOCYTES PERCENT AUTO 9 % (21-46); MONOCYTES ABSOLUTE AUTO 2.47 K/mm3 (0.16-1.47); MONOCYTES PERCENT AUTO 9 % (4-13); Mean Corpuscular HGB Conc 29.5 g/dL (31.5-36.5); Mean Corpuscular Volume 81 fL (80-100); Mean Platelet Volume 8.8 fL (9.1-12.4); NEUTROPHILS ABSOLUTE AUTO 20.93 K/mm3 (1.96-9.15); NEUTROPHILS PERCENT AUTO 78 % (41-73); NRBC ABSOLUTE 0.02 K/mm3 (0.00-0.02); NRBC Auto 0.1 /100 WBC (0.0-0.2); Platelet Count 696 K/mm3 (150-400); RDW Coefficient Variation 24.8 % (11.7-14.2); RDW Standard Deviation 72.9 fL (35.1-46.3); Red Blood Cell Count 2.88 M/mm3 (3.80-5.20); White Blood Cell Count 26.83 K/mm3 (4.00-11.30)
[2019-04-19 05:56] LABS: Alanine Aminotransfer (ALT/SGP 12 U/L (12-78); Albumin/Globulin Ratio 0.2 (0.8-1.8); Alk Phos 132 U/L (50-136); Anion Gap 7 mmol/L (6-16); Aspartate Aminotrans (AST/SGOT 18 U/L (12-37); Bilirubin, Total 0.1 mg/dL (0.1-1.0); Blood Urea Nitrogen 8 mg/dL (8-24); Bun/Creatinine Ratio 9.9 (12.0-20.0); CO2, Blood 27 mmol/L (21-32); Calcium, Blood 7.4 mg/dL (8.5-10.1); Chloride, Blood 103 mmol/L (98-108); Creatinine, Blood 0.81 mg/dL (0.40-1.00); Globulin, Blood 4.7 g/dL (2.2-4.0); Glomerular Filtration Rate >60 (60-); Glucose, Blood 78 mg/dL (70-99); Potassium, Blood 3.7 mmol/L (3.5-5.5); Sodium, Blood 137 mmol/L (136-145); Total Protein, Blood 5.7 g/dL (6.4-8.2)
--- NOTE | 2019-04-19 06:19 | NUR ---
CLINICAL DATA MANAGEMENT MANAGER SUMMARY PT SLEPT ON AND OFF THROUGHOUT THE NIGHT. DOES NOT CALL APPROPRIATELY WHEN INCONTIENT. WAS NOT ABLE TO COLLECT URINE SAMPLE. WILL PASS THIS ON TO AM NURSE. LOOSE STOOLS SEVERAL TIMES THROUGHOUT THE SHIFT. PT WAS RELUCTANT TO RECIEVE ISAAC CARE. WAS EXPLAINED TO THE PT THAT IN ORDER FOR HER TO GET BETTER, STAFF MUST CLEAN UP AND KEEP HER DRY EACH TIME INCONTIENT. PT REFUSED RECTAL TUBE. PT HAS DECUBITIS STAGE 2 ULCERS WITH SCANT BLEEDING AT TIMES. ABD PATS AND NYSTATIN POWDER APPLIED. REPOSITIONED Q2 HOURS. BLOOD SUGAR HAS BEEN IN THE HIGHER 70S TO 80S. JUICE WAS OFFERED AND ENCOURGED. [facility].
--- NOTE | 2019-04-19 17:22 | NUR ---
PT AOX4. PT CONTINUE TO BE ON BED REST AND IS TURNED Q2 HRS. PT WILL TRY TO AVOID CHANGES, BUT WILL AGREE IF PERSON IS INSISTANT WHEN SHE NEEDS IT. PT CONTINUES TO HAVE VERY SORE TENDER COCCYX AREA ABD PAD IN PLACE FOR ANY BLEEDING. PLEASE SEE CHART FOR PICTURES. WOUNDS KEEP GETTING SOILED DUE TO LOOSE BOWELS CAUSING A LOT OF IRRITATION. CHANGING AND TURNING ARE A HIGH PRIORITY. PT TREATED FOR PAIN PER EMAR. WILL CONTINUE TO MONITOR.
[2019-04-20 04:26] LABS: Hematocrit 23.9 % (33.0-51.0); Mean Corpuscular HGB 23.6 pg (26.0-34.0); Mean Corpuscular HGB Conc 29.3 g/dL (31.5-36.5); Mean Corpuscular Volume 81 fL (80-100); Mean Platelet Volume 8.3 fL (9.1-12.4); Platelet Count 666 K/mm3 (150-400); RDW Coefficient Variation 24.6 % (11.7-14.2); RDW Standard Deviation 71.7 fL (35.1-46.3); Red Blood Cell Count 2.97 M/mm3 (3.80-5.20); White Blood Cell Count 25.44 K/mm3 (4.00-11.30)
[2019-04-20 04:41] LABS: Anion Gap 5 mmol/L (6-16); Blood Urea Nitrogen 6 mg/dL (8-24); Bun/Creatinine Ratio 7.7 (12.0-20.0); CO2, Blood 29 mmol/L (21-32); Calcium, Blood 7.4 mg/dL (8.5-10.1); Chloride, Blood 104 mmol/L (98-108); Creatinine, Blood 0.78 mg/dL (0.40-1.00); Glomerular Filtration Rate >60 (60-); Glucose, Blood 87 mg/dL (70-99); Potassium, Blood 3.6 mmol/L (3.5-5.5); Sodium, Blood 138 mmol/L (136-145)
--- NOTE | 2019-04-20 05:52 | NUR ---
SHIFT SUMMARY NO ACUTE EVENTS OVERNIGHT, PT DID NOT SLEEP MUCH TONIGHT. PT NPO [place]CE [place] FOR POSSIBLE DRAIN PLACEMENT PER DR PABON. ULCERATION AND EXCORATION NOTED TO GLUTEAL CLEFT AND BUTTOCKS. CBG HAS BEEN STABLE, RANGING IN THE 80s AT THIS TIME. IV ABX GIVEN PER EMAR. WILL CONT TO MONITOR AND PROVIDE CARE UNTIL PRESUMED BY ONCOMING RN.
--- NOTE | 2019-04-20 10:41 | NUR ---
ID CONSULT CALLED TO DR FRAUSTO CONSULT LINE @ 2928
--- NOTE | 2019-04-20 11:42 | NUR ---
LAB CALL, [facility] BLOOD CX 04/18 REPORTED POSITIVE IN ERROR, DR SESAY NOTIFIED.
--- NOTE | 2019-04-20 17:04 | NUR ---
SUMMARY PT IS A/O X4, AFFECT SOMEWHAT FLAT, COOPERATIVE. SHE STATE UNABLE TO AMBULATE. BEDBOUND @ THIS TIME. PARTICIPATED w PT/OT HOWEVER DID NOT ATTEMPT OOB. S/P DUODENAL ULCER REPAIR BY DR PABON. ABD DRSG CDI. SHE WAS NPO AFTER MIDNITE LAST NOC FOR ABCESS DRAIN PLACEMENT, DR PABON UP LATE AFTERNOON, CANCEL FOR TODAY, STATE SHE MAY EAT DINNER & WILL HAVE RADIOLOGY PLACED DRAIN TOMORROW, NPO AFTER MIDNITE TONITE. HE ASSESS SURG SITE/DRSG, PALPATE OLD DRAIN SITE, OOZING PURULENT, GAUZE DRSG PLACED @ SITE. PT IS INCONT, IN ATTENDS, COCCYX & BUTTOCKS ULCERS NOTED, NO DRSG-OPEN TO AIR, PT STATE @ HOME THEY HAVE NOT BEEN USING DRSG, APPLYING OINT. ID DR COLE CONSULTED THIS AM, D/C IV LEVAQUIN, ORAL VANCO, IV FLAGYL CONTINUES. VSS.
--- NOTE | 2019-04-20 21:46 | NUR ---
WOUND CARE PROVIDED WOUND CARE TO BUTTOCK PRESSURE ULCERS. ZINC OXIDE OINTMENT APPLIED. ABD PAD APPLIED. TURNED AND REPOSITIONED WELL. PT TOLERATED WELL, BUT WAS RESISTFUL TO ALLOWING CARE.
[2019-04-21 04:19] LABS: Hematocrit 23.9 % (33.0-51.0); Hemoglobin 7.1 g/dL (11.5-16.0); Mean Corpuscular HGB 23.7 pg (26.0-34.0); Mean Corpuscular HGB Conc 29.7 g/dL (31.5-36.5); Mean Corpuscular Volume 80 fL (80-100); Mean Platelet Volume 8.2 fL (9.1-12.4); Platelet Count 612 K/mm3 (150-400); RDW Coefficient Variation 24.5 % (11.7-14.2); RDW Standard Deviation 70.6 fL (35.1-46.3); Red Blood Cell Count 2.99 M/mm3 (3.80-5.20); White Blood Cell Count 24.09 K/mm3 (4.00-11.30)
--- NOTE | 2019-04-21 05:51 | NUR ---
SHIFT SUMMARY NO ACUTE EVENTS OVERNIGHT. PT NPO [place]CE [place] FOR ABD DRAIN PLACEMENT PER RADIOLOGY. ZINC OXIDE OINTMENT APPLIED TO ULCERATION AND EXCORIATIONS TO GLUTEAL CLEFT. PT MEDICATED FOR PAIN BEFOREHAND AND TOLERATED WELL. Q2H TURNS PERFORMED, PT HESISTANT TO CARE. FLAT, WITHDRAWN EFFECT. WILL CONT TO MONITOR AND PROVIDE CARE UNTIL PRESUMED BY ONCOMING RN.
[2019-04-21 05:59] LABS: International Normalized Ratio 1.3; Prothrombin Time Results 13.5 Sec (9.7-11.5)
--- NOTE | 2019-04-21 18:34 | NUR ---
summary PT WAS NPO THIS AM FOR RADIOLOGY PLACED ABDOMINAL ABCESS DRAIN. BACK TO ROOM AFTER LUNCH. LEFT & RIGHT ABD DRAINS IN PLACE DRLOYD PURULENT/FOUL FLUID, APPROX 75 ML DRAINED THIS AFTERNOON. DR PABON IN TO SEE PT LATE AFTERNOON. GIVE WOUND CARE ORDERS FOR MID ABD SURG WOUND & COCCYX/BUTTOCKS ULCERS. WOUND CARE PROVIDED. PARTIAL BEDBATH/ISAAC AREA CARE PROVIDED. WBC 24, IV ANTIBX CONTINUE. PT CONTINUES BEDBOUND, STATE UNABLE TO STAND OR BR WT, PHY THER WORKING WITH HER SHE ALLOWS. SHE HAS CHR BACK PAIN & ACUTE ABD PAIN WITH TURNING, HAVE GIVEN PRN MORPHINE & OXYCODONE FOR RELIEF. SHE IS A/O X4, CONTINUING FLAT AFFECT. VSS, AFEBRILE.
--- NOTE | 2019-04-22 01:12 | NUR ---
I had been caring for PT in [employer]BLE POLISHER role reported off to Nicole Livingston CNA and recieved report from Marvin PRATER and assumed care as RN at around 2330.
[2019-04-22 04:54] LABS: Hematocrit 23.5 % (33.0-51.0); Hemoglobin 7.1 g/dL (11.5-16.0)
--- NOTE | 2019-04-22 04:59 | NUR ---
PT continues with elevated WBC, low HBG HCT and had 2 abscess drains placed 04/21/19 for abd abscess post peritonitis with perforated ulcer. Continues to have poor appetite but regular diet resumes post procedure. Blood glucose checks Q 6 hrs with midnight result 79. Decline snacks and said she would take applejuice but has only sips. Wound care to sacral and buttocks with abd, calmaseptic applied after karacleanse. Abscess drains drain purulent yellow matter. incontinent of bowel and bladder, PT does not have productive cough and is incontinent of urine with no samples sent for culture. @ [facility] assist for toileting and wound care.
--- NOTE | 2019-04-22 08:24 | NUR ---
CBG 67. BREAKFAST PROVIDED.
--- NOTE | 2019-04-22 13:13 | NUR ---
PT SITTING IN RECLINER IN NO ACUTE DISTRESS; DENIES PAIN; CALL LIGHT WITHIN REACH.
--- NOTE | 2019-04-22 17:53 | NUR ---
SHIFT SUMMARY OX4 FLAT AFFECT. NEEDS ENCOURAGEMENT TO PARTICIPATE IN CARE. PRESSURE ULCER TO COCCYX. PAIN MEDICATION RECOMMENDED BEFORE DRESSING CHANGES DUE TO DISCOMFORT AND EXCORIATION TO SACRAL AND ISAAC AREAS. DAUGHTER TO VISIT TODAY. PT UNABLE TO TELL IF SHE HAS HAD A BOWEL MOVEMENT OR IS WET. LIFT PATIENT. UP IN CHAIR FOR SEVERAL HOURS TODAY TOLERATED WELL. DECREASED APPETITE. CBG'S Q6HRS. NO COVERAGE ORDERS OF NEEDED THIS SHIFT.
--- NOTE | 2019-04-23 01:43 | NUR ---
DRESSINGS TO ABDOMINAL SURGICAL SITE AND SACRAL/BUTTOCK WOUNDS CHANGED. CLEANED WITH WOUND COMPUTER SYSTEMS ENGINEER. PATIENT TOLERATED FAIR. GIVEN PRN OXYCODONE AFTER THE PROCEDURE TO HELP WITH PAIN.
--- NOTE | 2019-04-23 04:15 | NUR ---
SHIFT SUMMARY PATIENT PLEASANT AND COOPERATIVE. SHE REQUIRED PRN OXYCODONE TWICE OVER THE SHIFT. ONCE AT THE BEGINNING FOR GENERAL PAIN, AND ONCE AFTER THE DRESSINGS ON HER WOUNDS WERE CHANGED. BOTH TIMES THE MEDICATION WAS EFFECTIVE. ASIDE FROM THAT THE PATIENT HAS BEEN QUIETLY RESTING AND WATCHING TV ALL NIGHT AND REQUESTS FOR HER DOOR TO BE CLOSED. BED IN LOWEST POSITION WITH BRAKES LOCKED. CALL LIGHT AND BELONGINGS WITHIN REACH. REPORT GIVEN TO ONCOMING RN.
[2019-04-23 05:40] LABS: Hematocrit 23.4 % (33.0-51.0); Hemoglobin 6.9 g/dL (11.5-16.0); Mean Corpuscular HGB 23.8 pg (26.0-34.0); Mean Corpuscular HGB Conc 29.5 g/dL (31.5-36.5); Mean Corpuscular Volume 81 fL (80-100); Mean Platelet Volume 8.4 fL (9.1-12.4); NRBC ABSOLUTE 0.03 K/mm3 (0.00-0.02); NRBC Auto 0.2 /100 WBC (0.0-0.2); Platelet Count 575 K/mm3 (150-400); RDW Coefficient Variation 24.6 % (11.7-14.2); RDW Standard Deviation 71.7 fL (35.1-46.3); White Blood Cell Count 18.57 K/mm3 (4.00-11.30)
[2019-04-23 08:18] LABS: Source, Urine Catheter
[2019-04-23 08:21] LABS: Appearance, Urine Hazy (Clear); Bilirubin, Urine Neg (Neg); Blood, Urine 2+ (Neg); Color, Urine Yellow (P-Yellow); Glucose Qualitative, Urine Neg (Neg); Ketones, Urine 1+ (Neg); Leukocyte Esterase, Urine 3+ (Neg); Nitrite, Urine Neg (Neg); Protein, Urine 1+ (Neg); Urobilinogen, Urine NORM (Normal)
[2019-04-23 08:39] LABS: White Blood Cells, Urine 50-100 /hpf (0-5)
[2019-04-23 08:41] LABS: Squamous Epithelial Cells Mod /hpf (Few)
[2019-04-23 08:42] LABS: Bacteria Many /hpf; Yeast/Fungi Urine Mod /hpf
[2019-04-23 08:46] LABS: WBC Cast Rare /lpf (0)
[2019-04-23 08:47] LABS: Transitional Epithelial Cells Few /hpf (0-Rare)
--- NOTE | 2019-04-23 18:41 | NUR ---
SHIFT SUMMARY UP WITH LIFT TO CHAIR FOR SEVERAL HOURS TODAY. INCONTINENT OF BOWEL AND BLADDER REFUSING RECTAL TUBE OR JETT. PRESSURE ULCER TO SACRUM DRESSING CHANGES AND TURNS Q2 HRS. DECREASED APPETITE. FLAT AFFECT APPEARS DEPRESSED. PAIN MEDICATION BEFORE TURNING AND INTERVENTIONS. PT TEARFUL AT TIMES. OX3.
--- NOTE | 2019-04-23 19:25 | NUR ---
RIGHT ABDOMINAL DRAIN WITH PURULENT DRAINAGE LEFT ABDOMINAL DRAIN WITH CLEAR SANGUINOUS WITH SEDIMENT
--- NOTE | 2019-04-24 04:30 | NUR ---
SHIFT SUMMARY- PT. A&O, COOPERATIVE WITH CARE. MIDLINE ABD INCISION DRESSING C/D/I. PT. ALSO HAS STAGE 4 SACRAL DECUBITIUS. PT. HAVING SEVERAL LOOSE STOOLS, ON ENTERIC PRECAUTIONS FOR C-DIFF. PERFORMED DRESSING CHANGE TO SACRUM, PT. TOLERATED WELL, BUT DID REQUIRE PAIN MEDICATION. BILATERAL ABD DRAINS IN PLACE. RT DRAIN NOTED TO HAVE PURULENT DRAINAGE AND LT DRAIN SEROSANGUIEOUS DRAINAGE. PT. SLEPT WELL T/O THE NIGHT. NO APPARENT DISTRESS NOTED. BS WNL, PT. CONTINUES TO HAVE POOR APPETITE. DENIED ANY NEEDS T/O THE REST OF THE SHIFT. CALL LIGHT WITHIN REACH AND SIDE RAILS UP X2. WILL CONT TO MONITOR. WILL CONT TO MONITOR. PICC AND POWERGLIDE SITE WNL.
[2019-04-24 05:51] LABS: Hemoglobin 7.9 g/dL (11.5-16.0); Mean Corpuscular HGB 24.2 pg (26.0-34.0); Mean Corpuscular HGB Conc 29.3 g/dL (31.5-36.5); Mean Corpuscular Volume 83 fL (80-100); Mean Platelet Volume 8.3 fL (9.1-12.4); NRBC ABSOLUTE 0.03 K/mm3 (0.00-0.02); NRBC Auto 0.2 /100 WBC (0.0-0.2); Platelet Count 478 K/mm3 (150-400); RDW Coefficient Variation 23.9 % (11.7-14.2); RDW Standard Deviation 71.2 fL (35.1-46.3); Red Blood Cell Count 3.27 M/mm3 (3.80-5.20); White Blood Cell Count 18.82 K/mm3 (4.00-11.30)
[2019-04-24 06:06] LABS: Anion Gap 6 mmol/L (6-16); Blood Urea Nitrogen 5 mg/dL (8-24); Bun/Creatinine Ratio 6.7 (12.0-20.0); CO2, Blood 28 mmol/L (21-32); Calcium, Blood 7.2 mg/dL (8.5-10.1); Chloride, Blood 108 mmol/L (98-108); Creatinine, Blood 0.75 mg/dL (0.40-1.00); Glomerular Filtration Rate >60 (60-); Glucose, Blood 95 mg/dL (70-99); Potassium, Blood 3.4 mmol/L (3.5-5.5); Sodium, Blood 142 mmol/L (136-145)
--- NOTE | 2019-04-24 19:26 | NUR ---
PT IS A/OX3, PLEASANT AND COOPERATIVE, THE PT APPEARS TO BE BREATHING EASILY AT REST ON O2 @ 2L/MIN, THE PT WAS SEEN BY DR. PABON THIS AM NEW DRESSING WAS APPLIED THIS AM AND THIS AFTERNOON, THE PHYSICAL AND OCCUPATIONAL THERAPIST WORKED WITH THE PT WHILE SHE WAS UP INTO THE CHAIR, THE PT WAS MEDICATED FOR PAIN X1 THIS EVENING, THE PTS APPETITE WAS POOR, CALL LIGHT IN REACH
--- NOTE | 2019-04-25 07:05 | NUR ---
SHIFT SUMMARY- NO ACUTE EVENTS OVERNIGHT. PT. A&O, COOPERATIVE WITH CARE. DRESSING CHANGES DONE WITH DIAPER CARE. PT. GIVEN MORPHINE TO PROVIDE SOME RELIEF DURING ATTENDS AND DRESSING CHANGES. DENIED ANY OTHER NEEDS T/O THE NIGHT. PT. REPOSITIONED PRN. RESTED COMFORTABLY DURING THE NIGHT. NO APPARENT DISTRESS NOTED. CALL LIGHT WITHIN REACH AND SIDE RAILS UP X2. WILL CONT TO MONITOR.
--- NOTE | 2019-04-25 16:40 | NUR ---
PT IS A/OX3, THE PLEASANT AND COOPERATIVE, WOUND CARE WAS DONE THIS AM WITH DR. PABON PRESENT, ABD DRAINS WERE FLUSHED BY DR. PABON, THE PT WAS MEDICATED FOR PAIN PRIOR TO DRESSING CHANGE, THE PHYSICAL AND OCCUPATIONAL THERAPIST BOTH WORKED WITH THE PT IN HER BED, THE PT DECLINED TO TRANSFER INTO THE CHAIR, PT APPEARS TO BE BREATHING EASILY ON O2 @ 2L/MIN, CALL LIGHT IN REACH, THE PTS DAUGHTER WAS IN TO VISIT
--- NOTE | 2019-04-25 22:52 | NUR ---
PT REFUSING REPOSITIONING AT THIS TIME. ATTENDS CHECKED AND DRY.
[2019-04-26 05:52] LABS: Hematocrit 27.7 % (33.0-51.0); Hemoglobin 8.2 g/dL (11.5-16.0); Mean Corpuscular HGB 24.6 pg (26.0-34.0); Mean Corpuscular HGB Conc 29.6 g/dL (31.5-36.5); Mean Corpuscular Volume 83 fL (80-100); Mean Platelet Volume 8.3 fL (9.1-12.4); Platelet Count 372 K/mm3 (150-400); RDW Coefficient Variation 25.2 % (11.7-14.2); RDW Standard Deviation 73.3 fL (35.1-46.3); Red Blood Cell Count 3.34 M/mm3 (3.80-5.20); White Blood Cell Count 14.54 K/mm3 (4.00-11.30)
[2019-04-26 06:07] LABS: Anion Gap 4 mmol/L (6-16); Blood Urea Nitrogen 6 mg/dL (8-24); Bun/Creatinine Ratio 9.4 (12.0-20.0); CO2, Blood 28 mmol/L (21-32); Calcium, Blood 7.4 mg/dL (8.5-10.1); Chloride, Blood 109 mmol/L (98-108); Creatinine, Blood 0.64 mg/dL (0.40-1.00); Glomerular Filtration Rate >60 (60-); Glucose, Blood 81 mg/dL (70-99); Potassium, Blood 3.9 mmol/L (3.5-5.5); Sodium, Blood 141 mmol/L (136-145)
--- NOTE | 2019-04-26 07:14 | NUR ---
SHIFT SUMMARY PT VERY FLAT. ALLOWED STAFF TO TURN HER IN THE BED APPROX HALF OF THE TIME OFFERED. PT INCONTINENT. ATTENDS IN PLACE. WOUND TO COCCYX CLEANED AND REDRESSED WITH GAUZE AND MEPILEX. PT HAD ONE SMALL UNFORMED BM THIS EVENING. INCONTINENT. PT VERY UNMOTIVATED. TAKES ENCOURAGEMENT FOR ALL TASKS. SWELLING TO BLE'S. ABD SURGICAL SITE CLEANED AND REDRESSED. BILATERAL ABD DRAINS. WITH LITTLE TO NO DRAINING. PT REPORTS PAIN TO ABD AND BACK. MEDICATED PER EMAR. VITAL SIGNS STABLE. REMAINED ON 2 L O2 NC WITH O2 SATS GREATER THAN 90%. NO ACUTE CHANGES THIS SHIFT. WILL CONTINUE TO MONITOR.
--- NOTE | 2019-04-26 17:02 | NUR ---
SHIFT SUMMARY- PT A/O, PLESANT AND COOPERATIVE. CHANGED BANDAGE ON SACRAL AREA THIS MORNING. PT WORKED WITH PHYSICAL THERAPY AND OCCUPATIONAL THERAPY THIS AFTERNOON. UP TO THE CHAIR FOR LUNCH REMAIND IN CHAIR FOR APPROX AN HOUR. CHANGED PT TWICE THIS SHIFT. PT HAS LITTLE APPETITE.
--- NOTE | 2019-04-27 03:39 | NUR ---
Isolation precautions maintained for C-Diff. COntinues to revceive antibiotics as ordered - see MAR for details. No complaints voiced. Denied pain when asked. Call light in reach. Asymptomatic.
--- NOTE | 2019-04-27 18:09 | NUR ---
SHIFT SUMMARY DAMIEN REQUESTED PAIN MEDS ONCE THIS SHIFT FOR ABDOMINAL AND BACK PAIN. DRESSINGS ON ABDOMEN CHANGED, DRESSING ON COCCYX CLEANSED, PACKED, AND DRESSING CHANGED. VERY POOR APPETITE, CUSTOMER SERVICE CLERK CONSULTED. 2L OXYGEN. GOT UP TO CHAIR ONCE WITH LOTS OF ENCOURAGEMENT USING A LIFT. OTHER MEALS SHE DECLINED GETTING OOB. SAYS IT MAKES HER PAINFUL, PT BECOMES TEARFUL WITH TRANSFERS. Q2 TURN AND CHANGE. NO BM TODAY, ONLY URINARY INCONTINENCE. TOOK MEDS PRESCRIBED, CALL LIGHT IN REACH, TM
--- NOTE | 2019-04-28 07:22 | NUR ---
WRAPPER CASHIER SUMMARY PT A/O X4. PLEASANT AND COOPERATIVE. SLEPT WELL THROUGHOUT THE NIGHT. MEDICATED FOR PAIN ONCE THIS SHIFT. SEE EMAR. NO BOWEL MOVEMENTS TONIGHT. 1 WET ATTENDS. NO ACUTE CHANGES.
--- NOTE | 2019-04-28 19:21 | NUR ---
SHIFT SUMMARY: NO ACUTE CHANGES TO REPORT THIS SHIFT. PT A&O; APATHETIC; COOPERATIVE WITH CARE. STAGE 4 ULCER ON COCCYX; MEDICATED FOR PAIN PER EMAR; DRESSING CHANGES WITH ATTENDS CHANGES. IV ABX CONTINUING; EXPECTED D/C TO SNF ON TUESDAY 05/01. REPORT GIVEN TO ONCOMING RN.
[2019-04-29 06:56] LABS: Hematocrit 28.4 % (33.0-51.0); Hemoglobin 8.4 g/dL (11.5-16.0); Mean Corpuscular HGB 25.1 pg (26.0-34.0); Mean Corpuscular HGB Conc 29.6 g/dL (31.5-36.5); Mean Corpuscular Volume 85 fL (80-100); Mean Platelet Volume 8.4 fL (9.1-12.4); Platelet Count 360 K/mm3 (150-400); RDW Coefficient Variation 25.8 % (11.7-14.2); RDW Standard Deviation 77.2 fL (35.1-46.3); Red Blood Cell Count 3.34 M/mm3 (3.80-5.20); White Blood Cell Count 9.12 K/mm3 (4.00-11.30)
[2019-04-29 07:11] LABS: Anion Gap 4 mmol/L (6-16); Blood Urea Nitrogen 5 mg/dL (8-24); Bun/Creatinine Ratio 8.3 (12.0-20.0); CO2, Blood 29 mmol/L (21-32); Calcium, Blood 7.4 mg/dL (8.5-10.1); Chloride, Blood 107 mmol/L (98-108); Glomerular Filtration Rate >60 (60-); Glucose, Blood 74 mg/dL (70-99); Potassium, Blood 3.7 mmol/L (3.5-5.5); Sodium, Blood 140 mmol/L (136-145)
--- NOTE | 2019-04-29 07:51 | NUR ---
GEOLOGICAL AIDE SUMMARY watched tv most of the night. patient has a very sad flat affect. spent time with patient and CONTROL SUPERVISOR talking about her improvement and offering encouragement. small mushy stool in AM. area surrounding gluteal fold, valeriy area, and just to right of rectum open, excoriated. significant amount of slough just right of rectum. Wound wash used to cleanse the area amd veru thin layer of barrier cream placed on surrounding skin. patient was quite painful during cleansing, but denied need for additional pain medication until clean up was done.
--- NOTE | 2019-04-29 18:07 | NUR ---
SHIFT SUMMARY PT AXO FLAT AFFECT, REFUSING SOME REPOSITIONING AND OOB. REFUSED PHYSICAL THERAPY. VSS. PT 91% ON RA. ALL DRESSINGS CHANGED THIS SHIFT. CONTINUES TO HAVE POOR APPETITE. BED IN LOW POSTITION, CALL LIGHT WITHIN REACH. PT ENCOURAGED TO PRACTICE ROM AND BED MOBILITY.
--- NOTE | 2019-04-30 12:31 | NUR ---
Physical therapy Pt refused physical therapy today stating she feels down and not up for doing anything. Also states "The antidepressant makes me feel like this every time I take it."
--- NOTE | 2019-04-30 16:51 | NUR ---
Shift Summary A/Ox4. Patient has been a pleasure to have. Declined Physical therapy today. Repositioned Q2H as patient allows. Medicated for back and buttock pain x 1. Patient was tearful after having 1 bout of diarrhea d/t pain in her buttock. No other concerns. Awaiting d/c to home with .
--- NOTE | 2019-04-30 18:40 | NUR ---
Decubitus Ulcer Wound cleanser, alginate, and mepilex bandage to coccyx and left buttock.
--- NOTE | 2019-05-01 06:29 | NUR ---
RAND MAKER SUMMARY slept well overnight. even after q 2 hr turning. Patient took alprazolam at HS as she hasn't slept at night "for weeks". in AM, patient had a very large mucousy brown/yellow stool in brief in addition to urine incontinance. Medicated for pain twice when patient was turned. Wounds around sacral area appear unchanged. Patient looking forward to going home in AM
--- NOTE | 2019-05-01 13:41 | NUR ---
Spiritual care visit conducted. Patient is lying in bed and alert. Patient tells she is going home soon. Patient shares more about her stephen and about her goals and passions. I listen empahtically and provide prayer. Patient responds well and thanks me for the visit.
[2019-05-01] MEDS ORDERED: ACET325 PO (14:10)
[2019-05-01] MEDS ORDERED: ASCO500 PO (14:11)
[2019-05-01] MEDS ORDERED: JUVEN PACKET1 EACH PO (14:11)
[2019-05-01] MEDS ORDERED: Vsl#3 Capsule1 EACH PO (14:12)
[2019-05-01] MEDS ORDERED: Nicoderm Cq1 EAC1 TOP (14:12)
[2019-05-01] MEDS ORDERED: Nystatin1 EAC5 TOP (14:13)
[2019-05-01] MEDS ORDERED: OXYC5 PO (14:14)
[2019-05-01] MEDS ORDERED: PANT40 PO (14:14)
[2019-05-01] MEDS ORDERED: SERT50 PO (14:15)
[2019-05-01] MEDS ORDERED: PERISHIELD100 GM TOP (14:16)
[2019-05-01] MEDS ORDERED: VANCOCIN HCL125 MG PO (14:16)
[2019-05-01] MEDS ORDERED: AMOCLA875 PO (14:19)
--- NOTE | 2019-05-01 18:35 | NUR ---
DISCHARGE NOTE PICC LINE DC'D BY PROCEDURE NURSE. POWERGLIDE DC'D BY MYSELF. DISCHARGE PLANNING ARRANGED FOR HOME HEALTH NURSING TO VISIT TOMORROW AND MEDICAL EQUIPMENT DELIVERY INCLUDING BED, LIFT, AND OTHER ASSISTIVE EQUIPMENT THROUGH [facility], [place]. MEDICATIONS FAXED TO PREFERED PHARMACY. FAMILY INFORMED OF DISCHARGE. TRANSPORT SHOWED UP AND TRANSPORTED THE PT VIA GURNEY TO THEIR VEHICLE FOR DC TO PT'S HOME. PERSONAL POSSESSIONS GATHERED AND GIVEN TO THE TRANSPORT DRIVERS FOR TRANSPORT. PT HAD NO FURTHER QUESTIONS
== END 2019-05-01 18:33 | disposition home health service (06) | DRG 853 ==
LOC: ER 20:38 → SURS 04-01 02:54 → PCU 04-01 02:54 → ICUE 04-01 02:54 → MEDS 04-01 02:54 → PCU 04-01 02:56 → SURS 04-02 18:01 → PCU 04-05 16:40 → ICUE 04-06 10:54 → PCU 04-08 01:32 → ICUE 04-08 13:26 → PCU 04-09 18:15 → MEDS 04-13 18:14 → ENPENDDIS 05-01 14:21 → MEDS 05-01 18:33
PROVIDERS: Emergency Medicine; Internal Medicine; Internal Medicine Critical Care Medicine; Pharmacist; Surgery; ADMIT Internal Medicine
PROC: 0DU907Z Supplement Duodenum with Autologous Tissue Substitute, Open Approach (ICD-10-PCS; principal; 2019-04-01 09:00)
PROC: 5A09457 Assistance with Respiratory Ventilation, 24-96 Consecutive Hours, Continuous Positive Airway Pressure (ICD-10-PCS; 2019-04-02)
PROC: 30233N1 Transfusion of Nonautologous Red Blood Cells into Peripheral Vein, Percutaneous Approach (ICD-10-PCS; 2019-04-02)
PROC: 02HV33Z Insertion of Infusion Device into Superior Vena Cava, Percutaneous Approach (ICD-10-PCS; 2019-04-03)
PROC: 3E0436Z Introduction of Nutritional Substance into Central Vein, Percutaneous Approach (ICD-10-PCS; 2019-04-03)
PROC: 0DJ00ZZ Inspection of Upper Intestinal Tract, Open Approach (ICD-10-PCS; 2019-04-03)
DX: A41.9 Sepsis, unspecified organism (principal); L89.154 Pressure ulcer of sacral region, stage 4; J18.8 Other pneumonia, unspecified organism; J96.01 Acute respiratory failure with hypoxia; K57.20 Diverticulitis of large intestine with perforation and abscess without bleeding; N17.9 Acute kidney failure, unspecified; A04.72 Enterocolitis due to Clostridium difficile, not specified as recurrent; D62 Acute posthemorrhagic anemia; E16.2 Hypoglycemia, unspecified; E87.6 Hypokalemia; D50.9 Iron deficiency anemia, unspecified; I10 Essential (primary) hypertension; F32.9 Major depressive disorder, single episode, unspecified; K21.9 Gastro-esophageal reflux disease without esophagitis; F17.210 Nicotine dependence, cigarettes, uncomplicated; D63.1 Anemia in chronic kidney disease; E66.01 Morbid (severe) obesity due to excess calories; E78.5 Hyperlipidemia, unspecified; R19.8 Other specified symptoms and signs involving the digestive system and abdomen; G47.00 Insomnia, unspecified; Z68.32 Body mass index [BMI] 32.0-32.9, adult
CPT/HCPCS: 0099U; 36415; 36430; 36569; 36600; 49405; 71045; 71046; 74018; 74176; 74177; 74240; 80047; 80048; 80053; 80069; 80202; 81001; 82533; 82728; 82803; 82947; 83036; 83525; 83527; 83540; 83550; 83605; 83690; 83735; 84100; 84145; 84478; 84681; 85014; 85018; 85025; 85027; 85610; 86850; 86900; 86901; 86923; 87040; 87070; 87075; 87076; 87077; 87086; 87185; 87205; 87324; 87338; 87493; 90686; 93005; 93010; 94640; 94660; 94760; 94762; 96365-59; 96366; 96367; 96375; 97110; 97162; 97166; 97530; 97535; 99285-25; C1751; C9113; G0008; J0330; J0696; J1100; J1940; J1956; J2185; J2250; J2270; J2370; J2405; J2543; J2704; J3010; J3370; J3411; J3475; J3480; J7030; J7042; J7050; J7060; J7799; P9016; Q9967

== ENCOUNTER 2020-06-08 01:36 | Inpatient (IN) | payer OTHER ==
[~2020-06-08] VITALS: Ht 172.7 cm; Wt 98.3 kg
[~2020-06-08 01:36] MED LIST: ACET325 PO; AMOCLA875 PO; ASCO500 PO; JUVEN PACKET1 EACH PO; Nicoderm Cq1 EAC1 TOP; Nystatin1 EAC5 TOP; OXYC5 PO; PANT40 PO; PERISHIELD100 GM TOP; SERT50 PO; VANCOCIN HCL125 MG PO; Vsl#3 Capsule1 EACH PO; Zantac150 MG PO
[2020-06-08 02:21] LABS: Mean Corpuscular HGB 25.5 pg (26.0-34.0); Mean Corpuscular Volume 98 fL (80-100); Mean Platelet Volume 9.8 fL (9.1-12.4); NRBC ABSOLUTE 0.79 K/mm3 (0.00-0.02); NRBC Auto 2.6 /100 WBC (0.0-0.2); Platelet Count 502 K/mm3 (150-400); RDW Coefficient Variation 18.2 % (11.7-14.2); RDW Standard Deviation 61.2 fL (35.1-46.3); Red Blood Cell Count 0.98 M/mm3 (3.80-5.20); White Blood Cell Count 29.98 K/mm3 (4.00-11.30)
[2020-06-08 02:29] LABS: Hematocrit 9.6 % (33.0-51.0); Hemoglobin 2.5 g/dL (11.5-16.0)
[2020-06-08 02:37] LABS: International Normalized Ratio 1.15; Prothrombin Time Results 12.2 Sec (9.7-11.5)
[2020-06-08 02:50] LABS: Base Excess Venous -27.7 mmol/L; Bicarbonate Venous 5.8 mmol/L (24.0-30.0); PCO2 Venous 27.5 mmHg (38-42); PO2 Venous 148 mmHg (38-42); pH Blood Venous 6.89 (7.34-7.37)
[2020-06-08 02:53] LABS: Source, Urine Catheter
[2020-06-08 03:15] LABS: Magnesium, Blood 2.7 mg/dL (1.6-2.4)
[2020-06-08 03:16] LABS: Alanine Aminotransfer (ALT/SGP 7 U/L (12-78); Albumin, Blood 1.7 g/dL (3.4-5.0); Albumin/Globulin Ratio 0.5 (0.8-1.8); Alk Phos 61 U/L (50-136); Anion Gap 26 mmol/L (6-16); Aspartate Aminotrans (AST/SGOT 7 U/L (12-37); Bilirubin, Total <0.1 mg/dL (0.1-1.0); Blood Urea Nitrogen 42 mg/dL (8-24); Bun/Creatinine Ratio 36.2 (12.0-20.0); CO2, Blood 7 mmol/L (21-32); Calcium, Blood 7.8 mg/dL (8.5-10.1); Chloride, Blood 105 mmol/L (98-108); Creatinine, Blood 1.16 mg/dL (0.40-1.00); Globulin, Blood 3.1 g/dL (2.2-4.0); Glomerular Filtration Rate 53 (60-); Glucose, Blood 437 mg/dL (70-99); Potassium, Blood 5.2 mmol/L (3.5-5.5); Sodium, Blood 138 mmol/L (136-145); Total Protein, Blood 4.8 g/dL (6.4-8.2)
[2020-06-08 03:39] LABS: Bilirubin, Urine Neg (Neg); Blood, Urine 2+ (Neg); Glucose Qualitative, Urine 3+ (Neg); Ketones, Urine 1+ (Neg); Leukocyte Esterase, Urine Neg (Neg); Nitrite, Urine Neg (Neg); Protein, Urine 3+ (Neg); Urobilinogen, Urine NORM (Normal)
[2020-06-08 03:50] LABS: Appearance, Urine Hazy (Clear); Color, Urine Pale Yellow (P-Yellow)
[2020-06-08 04:04] LABS: Amorphous Mod (0-Heavy); Bacteria Few /hpf; Mucus Light (0-Heavy); Squamous Epithelial Cells Few /hpf (Few)
[2020-06-08 04:13] LABS: BAND PERCENT MAN 2 % (0-8); BASOPHILS PERCENT MAN 0 % (0-2); EOSINOPHILS PERCENT MAN 0 % (0-6); LYMPHOCYTES ABSOLUTE MAN 10.19 K/mm3 (0.84-5.20); LYMPHOCYTES PERCENT MAN 34 % (21-46); MONOCYTES ABSOLUTE MAN 1.79 K/mm3 (0.16-1.47); MONOCYTES PERCENT MAN 6 % (4-13); MYELOCYTE ABSOLUTE MAN 0.29 K/mm3 (0.00-0.00); MYELOCYTE PERCENT MAN 1 % (0-0); NEUTROPHILS ABSOLUTE MAN 17.68 K/mm3 (1.96-9.15); SEG NEUTROPHILS PERCENT MAN 57 % (41-73); TOTAL CELLS COUNTED 100
[2020-06-08 04:55] LABS: Influenza A, PCR Negative (NEGATIVE); Influenza B, PCR Negative (NEGATIVE); Resp Syncytial Virus, PCR Negative (NEGATIVE); SARS-Cov-2 (COVID-19) PCR, MMC Negative (NEGATIVE)
[2020-06-08 05:23] LABS: Hematocrit 29.1 % (33.0-51.0); Hemoglobin 9.6 g/dL (11.5-16.0); Mean Corpuscular HGB 28.1 pg (26.0-34.0); Mean Platelet Volume 8.8 fL (9.1-12.4); NRBC ABSOLUTE 1.08 K/mm3 (0.00-0.02); NRBC Auto 2.7 /100 WBC (0.0-0.2); Platelet Count 293 K/mm3 (150-400); RDW Coefficient Variation 14.9 % (11.7-14.2); RDW Standard Deviation 46.1 fL (35.1-46.3); Red Blood Cell Count 3.42 M/mm3 (3.80-5.20); White Blood Cell Count 39.61 K/mm3 (4.00-11.30)
[2020-06-08 05:25] LABS: Mean Corpuscular Volume 85 fL (80-100)
[2020-06-08 05:46] LABS: Albumin, Blood 2.1 g/dL (3.4-5.0); Albumin/Globulin Ratio 0.7 (0.8-1.8); Bilirubin, Total 0.5 mg/dL (0.1-1.0); Creatinine, Blood 1.11 mg/dL (0.40-1.00); Globulin, Blood 3.1 g/dL (2.2-4.0); Potassium, Blood 4.1 mmol/L (3.5-5.5); Total Protein, Blood 5.2 g/dL (6.4-8.2)
[2020-06-08 05:59] LABS: BAND PERCENT MAN 5 % (0-8); BASOPHILS PERCENT MAN 0 % (0-2); EOSINOPHILS PERCENT MAN 0 % (0-6); LYMPHOCYTES ABSOLUTE MAN 0.79 K/mm3 (0.84-5.20); LYMPHOCYTES PERCENT MAN 2 % (21-46); MONOCYTES ABSOLUTE MAN 1.58 K/mm3 (0.16-1.47); MONOCYTES PERCENT MAN 4 % (4-13); MYELOCYTE ABSOLUTE MAN 2.37 K/mm3 (0.00-0.00); MYELOCYTE PERCENT MAN 6 % (0-0); NEUTROPHILS ABSOLUTE MAN 34.85 K/mm3 (1.96-9.15); SEG NEUTROPHILS PERCENT MAN 83 % (41-73); TOTAL CELLS COUNTED 100
--- NOTE | 2020-06-08 06:00 | NUR ---
ASSUMED PT CARE/END OF SHIFT SUMMARY PT ARRIVED ON UNIT INTUBATED AND SEDATED. PROPOFOL AT 20MCG/KG/MIN. PT UNRESPONSIVE. PROPOFOL TITRATED OFF TO ASSESS NEURO FUNCTION. VENT SETTINGS AC 16, TV 400, PEEP 5, FIO2 40%. STARTED PT ON SODIUM BICARB AT 100MLS/HR, INSULIN GTT AT 1UNIT/HR D/T BS 261. CALLED DR. BRUCE REGARDING D5 1/2 NS, WHICH ORDERS WERE RECEIVED TO START AT 75MLS/HR AFTER BS WAS LESS THAN 220. SANDOSTATIN INFUSING AT 25MLS/HR, PROTONIX GTT STARTED AT 10MLS/HR. ALBUMIN HUNG PER ORDERS. CENTRAL LINE NOTED TO RIGHT IJ. TEMP JETT CATHETER IN PLACE AND DRAINING TO GRAVITY; CLOUDY AND YELLOW. PT RECEIVED A BED BATH D/T BEING COVERED IN DRIED COFFEE GROUND EMESIS AND STOOL. PT NOTED TO HAVE A STAGE 3 PRESSURE ULCER TO COCCYX. WOUND BED APPEARS VERY CLEAN WITH 100% GRANULATION TISSUE. CLEANSED SITE, PACKED CALCIUM ALGINATE, AND COVERED WITH FOAM DRESSING UNTIL ORDERS CAN BE OBTAINED FOR WOUND VAC PLACEMENT. SURROUNDING TISSUE IS RED AND VERY HIGH RISK FOR BREAKDOWN; APPEARS TO BE MOISTURE ASSOCIATED SKIN DAMAGE TO ISAAC AREA AND GROIN AREA; PER FAMILY PT WAS INCONTINENCE OF HERSELF THE LAST THREE DAYS WHEN EVERYTHING STARTED. PT ABLE TO OPEN EYES TO VERAL STIMULI AND FOLLOW COMMANDS; THEREFORE INCREASED PROPOFOL, SEE FLOWSHEET FOR TITRATIONS. PROPOFOL IS CURRENTLY AT 60MCG/KG/MIN WITH A CALL OUT TO DR. BRUCE IN REGARDS TO USING FENTANYL ADJUNCTLY FOR SEDATION. WILL CONTINUE TO MONITOR UNTIL REPORT IS HANDED OFF TO ONCOMING RN.
[2020-06-08 06:06] LABS: PO2 Arterial 76.2 mmHg (80-100); pH Blood Arterial 7.35 (7.35-7.45)
[2020-06-08 08:41] LABS: Hematocrit 24.9 % (33.0-51.0); Hemoglobin 8.4 g/dL (11.5-16.0)
--- NOTE | 2020-06-08 09:49 | NUR ---
ASSUMED CARE AT 0700 PT LAYING IN BED INTUBATED WITH VENT SETTINGS AC 16, TV 400, PEEP 5, FIO2 30%. PT RESPONDS TO NOXIOUS STIMULI AND GRIMICING WITH ORAL CARE; PT PALE, MONICA, AND CLAMMY. HR 80'S. SBP 150'S DURING CHANGE OF SHIFT AND TRENDED DOWN TO SBP 130'S; DR BATRSE NOTIFIED AND H AND H ORDERED, RETURN LAB SHOWED HGB 8.4. OG TUBE TO LIS WITH MODERATE RED THIN OUTPUT. JETT IN PLACE AND DRAINING TO GRAVITY; 10ML URINE OUTPUT NOTED IN ONE HOUR; DR JONES NOTIFIED. PROPOFOL INFUSING AT 60MCG/KG/MIN. PROTONIX AND SANDOSTATIN INFUSING. INSULIN AND SODIUM BICARB STOPPED PER DR JONES. DR AUDREY CRESPOIED AND WILL BE IN TO SEE PT THIS AM. SEE SHIFT ASSESSMENT FOR FULL ASSESSMENT.
[2020-06-08 11:07] LABS: Bun/Creatinine Ratio 32.7 (12.0-20.0); Creatinine, Blood 1.1 mg/dL (0.40-1.00); Potassium, Blood 3.8 mmol/L (3.5-5.5)
--- NOTE | 2020-06-08 12:05 | NUR ---
06/08/20 1205 Nataliia Severino History, Chart, Medications and Allergies reviewed before start of procedure.Patient confirms NPO status and agrees with scheduled surgery.
--- NOTE | 2020-06-08 12:26 | NUR ---
EGD ENDOSCOPY DR VENTURA PERFORMED EDG ENDOSCOPY AT BEDSIDE. PT TOLERATED PROCEDURE WELL, BP STABLE, PT SEDATED. PROPOFOL INCREASED TO 80MCG/KG/MIN FOR PROCEDURE AND RETURNED TO 60MCG/KG/MIN AFTERWARDS. OG REMOVED PRIOR TO PROCEDURE PER DR VENTURA ORDER. DR VENTURA DISCOVERED SEVERAL LARGE STOMACH AND DUODENAL ULCERS; SEE DAY SURG NOTES FOR MORE DETAILS. SANDOSTATIN DC'D. OG IS NOT TO BE PLACED UNIL APPROVED BY DR VENTURA. LASTLY, DR VENTURA STATED IF PT IS TO HAVE SYMPTOMS OF BLEEDING AGAIN, NOTIFYING SURGERY WOULD BE NECESSARY.
[2020-06-08 16:09] LABS: Hematocrit 23.1 % (33.0-51.0); Hemoglobin 7.8 g/dL (11.5-16.0)
[2020-06-08 16:28] LABS: Anion Gap 10 mmol/L (6-16); Blood Urea Nitrogen 30 mg/dL (8-24); Bun/Creatinine Ratio 30.2 (12.0-20.0); CO2, Blood 20 mmol/L (21-32); Calcium, Blood 6.9 mg/dL (8.5-10.1); Chloride, Blood 111 mmol/L (98-108); Creatinine, Blood 0.99 mg/dL (0.40-1.00); Glomerular Filtration Rate >60 (60-); Glucose, Blood 128 mg/dL (70-99); Potassium, Blood 3.4 mmol/L (3.5-5.5); Sodium, Blood 141 mmol/L (136-145)
--- NOTE | 2020-06-08 17:48 | NUR ---
END OF SHIFT SUMMARY PT CONT TO BE INTUBATED WITH VENT SETTINGS AC 16, TV 400, PEEP 5, FIO2 30%. SCANT AMOUNT OF YELLOW SECREATIONS SUCTIONED VIA ETT. PT RESPONDS TO NOXIOUS STIMULI, ESPECIALLY DURING ORAL CARE, AND WILL SLOWLY MOVE BUE WHEN RESTRAINTS ARE REMOVED. AFIBRILE. HR 70-80. SBP 100-150; BP HAS TRENDED DOWNWARD T/O SHIFT BUT MAP REMAINS >65; NO ACTIVE SIGNS OF ACUTE BLEEDING PRESENT. JETT IN PLACE AND DRAINING TO GRAVITY; URINE OUTPUT IMPROVED T/O SHIFT, 900ML OUT TOTAL. PRESSURE ULCER ON COCCYX DRESSING CHANGED THIS SHIFT; NEW PICTURE TAKEN AND IN CHART; 4CM OF TUNNALING NOTED, SPECIMEN SWAB COLLECTED AND SENT; CALCIUM ALGINATE PLACED IN WOUND AND THEN COVERED WITH MEPILEX; DR JONES NOTIFIED OF WOUND AND WOUND CONSULT TO BE COMPLETED ON WEDNESDAY. PROPOFOL INFUSING AT 60MCG/KG/MIN. PROTONIX, KCL, AND D5 1/2NS ALSO INFUSING. INSULIN GTT D/C'D. H&H TO BE REPEATED AT 2200. WILL REPORT TO PM RN WHEN AVAILABLE.
--- NOTE | 2020-06-08 19:30 | NUR ---
ASSUMED CARE: PT INTUBATED, SEDATED. VENT: AC 16/400, 5/30%. PROPOFOL GTT @ 60mcg/kg/min. PT STIRRS TO NOXIOUS STIMULI, DOES NOT OPEN EYES BUT IS ABLE TO SQUEEZE HANDS WHEN PROMPTED, STRETCHES/RAISES ARMS WHEN RESTRAINTS ARE REMOVED. HR 70s-80s, MONITOR INDICATES A SINUS RHYTHM. SBP LOW 100s. JETT PATENT, DRAINING TO GRAVITY. PT APPEARS PALE, SKIN WARM & DRY. NO OBVIOUS S/Sx BLEEDING. WILL CONTINUE TO MONITOR & REPORT APPROPRIATE.
[2020-06-08 22:28] LABS: Hematocrit 20.5 % (33.0-51.0)
[2020-06-08 22:44] LABS: Anion Gap 5 mmol/L (6-16); Blood Urea Nitrogen 22 mg/dL (8-24); Bun/Creatinine Ratio 23.7 (12.0-20.0); CO2, Blood 24 mmol/L (21-32); Calcium, Blood 6.2 mg/dL (8.5-10.1); Chloride, Blood 118 mmol/L (98-108); Creatinine, Blood 0.93 mg/dL (0.40-1.00); Glomerular Filtration Rate >60 (60-); Glucose, Blood 124 mg/dL (70-99); Potassium, Blood 3.4 mmol/L (3.5-5.5); Sodium, Blood 147 mmol/L (136-145)
[2020-06-09 04:35] LABS: Anion Gap 6 mmol/L (6-16); Blood Urea Nitrogen 21 mg/dL (8-24); Bun/Creatinine Ratio 23.4 (12.0-20.0); CO2, Blood 23 mmol/L (21-32); Calcium, Blood 6.8 mg/dL (8.5-10.1); Chloride, Blood 114 mmol/L (98-108); Glomerular Filtration Rate >60 (60-); Glucose, Blood 118 mg/dL (70-99); Potassium, Blood 4.1 mmol/L (3.5-5.5); Sodium, Blood 143 mmol/L (136-145)
[2020-06-09 04:40] LABS: Magnesium, Blood 2.1 mg/dL (1.6-2.4)
[2020-06-09 04:56] LABS: BASOPHILS ABSOLUTE AUTO 0.03 K/mm3 (0.00-0.23); BASOPHILS PERCENT AUTO 0 % (0-2); EOSINOPHILS ABSOLUTE AUTO 0.05 K/mm3 (0.00-0.68); EOSINOPHILS PERCENT AUTO 0 % (0-6); Hematocrit 25.6 % (33.0-51.0); Hemoglobin 8.7 g/dL (11.5-16.0); IMMATURE GRAN ABSOLUTE AUTO 0.22 K/mm3 (0.00-0.10); IMMATURE GRAN PERCENT AUTO 2 % (0-1); LYMPHOCYTES ABSOLUTE AUTO 1.05 K/mm3 (0.84-5.20); LYMPHOCYTES PERCENT AUTO 8 % (21-46); MONOCYTES ABSOLUTE AUTO 1.08 K/mm3 (0.16-1.47); MONOCYTES PERCENT AUTO 8 % (4-13); Mean Corpuscular HGB 28.5 pg (26.0-34.0); Mean Corpuscular Volume 84 fL (80-100); Mean Platelet Volume 9.1 fL (9.1-12.4); NEUTROPHILS ABSOLUTE AUTO 11.48 K/mm3 (1.96-9.15); NEUTROPHILS PERCENT AUTO 83 % (41-73); NRBC ABSOLUTE 0.43 K/mm3 (0.00-0.02); NRBC Auto 3.1 /100 WBC (0.0-0.2); Platelet Count 262 K/mm3 (150-400); RDW Coefficient Variation 16.1 % (11.7-14.2); RDW Standard Deviation 48.8 fL (35.1-46.3); Red Blood Cell Count 3.05 M/mm3 (3.80-5.20); White Blood Cell Count 13.91 K/mm3 (4.00-11.30)
[2020-06-09 05:36] LABS: PCO2 Arterial 34.5 mmHg (35-45); PO2 Arterial 88.1 mmHg (80-100)
--- NOTE | 2020-06-09 06:37 | NUR ---
SHIFT SUMMARY: PT CONTINUES TO BE INTUBATED, SEDATED. PROPOFOL GTT @ 45mcg/kg/min. VENT WEEN INITIATED @ 0445 W/ PT PLACED ON SPONTANEOUS W/ PS 5 & PEEP OF 5. PT CONTINUES TO PRODUCE MOD AMNT OF SECRETIONS BUT IS TOLERATING VENT WELL & CONSISTENTLY TAKING IN TIDAL VOLUMES OF >300. ABLE TO FOLLOW COMMANDS & PARTICIPATE IN CARE. PT RECEIVED 1UNIT PRBCs PER PETRE. H&H IMPROVED 8.7 & 25.6. D5 1/2 GTT @ 100ml/hr & PROTONIX GTT @ 10ml/hr CONTINUES.
--- NOTE | 2020-06-09 08:23 | NUR ---
PT SEDATED ON PROPOFOL AT 35MCG FOR MECH VENT. PT ON SPONT PS OF 5, FIO2 30%, PEEP 5. PT AWAKENS TO LIGHT VOICE. PT ABLE TO FOLLOW DIRECTIONS, AND NODS HEAD APPROPRIATELY TO QUESTIONS. PT TEARFUL AND ANXIOUS. PT NODS HEAD YES TO PAIN, NODS YES TO GENERALIZED PAIN. FENT 25MCG GIVEN W GOOD EFFECT. PT RESISTENT TO ORAL CARE. PT MAY BE EXTUBATED TODAY.
--- NOTE | 2020-06-09 10:12 | NUR ---
DR JONES IN TO SEE PT. PT TO BE EXTUBATED SHORTLY. PROPOFOL TURNED OFF AT 1000. NPT WIDE AWAKE AND FOLLOWING DIRECTIONS. SPUTUM SENT. CENTRAL LINE TO BE DC'D AFTER PERIPHERAL ACCESS PLACED.
--- NOTE | 2020-06-09 10:19 | NUR ---
PT EXTUBATED AT 1015. PT SATS 100% ON RA. PT C/O SORE THROAT; WHISPERED VOICE. RESTRAINTS DC'D AT 1015.
--- NOTE | 2020-06-09 10:35 | NUR ---
DR VENTURA IN TO SEE PT. OKAY TO PLACE PT ON FULL LIQUID DIET PER DR VENTURA.
--- NOTE | 2020-06-09 10:40 | NUR ---
D5 1/[address] JONES. CA CHLORIDE INFUSING. PT TEARFUL, STATES SHE WAS TAKING TO MUCH ASA AT HOME FOR PAIN; OTHERWISE DOING WELL.
--- NOTE | 2020-06-09 11:34 | NUR ---
PT TURNED ON SIDE AND NOTIFIED THAT SHE NEEDED TO BE TURNED Q 2HRS D/T DECUB COCCYX ULCER.PT STARTED CRYING LOUDLY, STATING "IT'S BACK?!". PT INFORMED THAT IT HAS BEEN PRESENT FOR A LONG TIME IT IS 4CM DEEP. PT'S DAUGHTER GIVEN FULL UPDATE PER PT'S REQUEST. PT DID STATES SHE WASNT READY FOR VISITORS "AFTER WHAT I DID", PT CLARIFIES TAKING TOO MUCGH ASPIRIN D/T PAIN; PT STARTED CRYING HARD AND LOUDLY AGAIN. PT COMFORTED AND NOTIFIED WE WOULD HELP W ALTERNATIVES TO ASPIRIN FOR PAIN. PT MAY HAVE IDD, PT'S BEHAVIOR SOMEWHAT CHILD-LIKE IN NATURE. PT VERY COOPERATIVE AT THIS POINT. PROTONIX GTT AND TKO INFUSING.
--- NOTE | 2020-06-09 14:00 | NUR ---
POWERGLIDE PLACED TO DIONNE W/O DIFFICULTY. CENTRAL LINE THEN REMOVED FOLLOWING HOSPITAL POLICY. PT TOOK SIPS OF WATER W/O DIFF, BUT DECLINES FULL LIQUID MEAL AT THIS TIME. DENIES NAUSEA. FENT 25MCG GIVEN; PT REQUESTED PAIN MEDICATION FOR LOWER BACK PAIN 01/14. PT REMAINS SOMEWHAT TEARFUL BUT IMPROVING MOOD.
--- NOTE | 2020-06-09 15:44 | NUR ---
PT INCONTINENT OF OLD BLOOD (TARRY BLACK/DARK MAROON) MIX WITH SOME SM HARD STOOL. COCCYX DECUB DRSG CHANGED. PT TOLERATING FULL LIQUIDS.
[2020-06-09 16:13] LABS: Hematocrit 25.1 % (33.0-51.0); Hemoglobin 8.3 g/dL (11.5-16.0)
--- NOTE | 2020-06-09 19:32 | NUR ---
PT INCONTINENT OF SECOND (OLD BLOOD) STOOL. ATTENDS PLACED, DRSG TO COCCYX CHANGED, PT PLACED ON RIGHT SIDE. PROTONIX REMAINS AT 10CC/HR. PT TOLERATED FULL LIQUID DIET TODAY, REMAINS TEARFUL AT TIMES.
--- NOTE | 2020-06-09 21:00 | NUR ---
ASSUMPTION OF CARE PT AWAKE IN BED WATCHING TELEVISION, ORIENTED SELF, LOCATION, EVENT AND FOLLOWING DIRECTIONS. PT CALM AND COOPERATIVE, EMOTIONAL AND TEARFUL AT TIMES. O2 SATURATIONS>90% ON RA. MONITOR SHOWS SINUS RHYTHM WITH HR 70'S, BP STABLE WITH SBP 90'S-110. WOUND TO SACRAL AREA CLEANED AND REDRESSED WITH CALCIUM ALGINATE, MEPILEX PLACED OVER WOUND. PT CONTINUES TO HAVE INCONTINENT LOOSE TO SOFT BLACK BOWEL MOVEMENTS. JETT IN PLACE DRAINING CLEAR YELLOW URINE. PT TURNS SELF INDEPENDENTLY IN BED, REPORTS BEING WHEELCHAIR BOUND AT HOME BUT STATES SHE CAN STAND, TURN AND PIVOT INDEPENDENTLY. PT ENCOURAGED TO TURN SELF IN BED TO PREVENT FURTHER BREAKDOWN. CALL LIGHT WITHIN REACH.
[2020-06-10 06:00] LABS: BASOPHILS ABSOLUTE AUTO 0.03 K/mm3 (0.00-0.23); BASOPHILS PERCENT AUTO 0 % (0-2); EOSINOPHILS ABSOLUTE AUTO 0.28 K/mm3 (0.00-0.68); EOSINOPHILS PERCENT AUTO 2 % (0-6); Hematocrit 25.7 % (33.0-51.0); Hemoglobin 8.2 g/dL (11.5-16.0); IMMATURE GRAN ABSOLUTE AUTO 0.23 K/mm3 (0.00-0.10); IMMATURE GRAN PERCENT AUTO 1 % (0-1); LYMPHOCYTES PERCENT AUTO 14 % (21-46); MONOCYTES ABSOLUTE AUTO 1.07 K/mm3 (0.16-1.47); MONOCYTES PERCENT AUTO 7 % (4-13); Mean Corpuscular HGB 28.1 pg (26.0-34.0); Mean Corpuscular HGB Conc 31.9 g/dL (31.5-36.5); Mean Corpuscular Volume 88 fL (80-100); Mean Platelet Volume 9.6 fL (9.1-12.4); NEUTROPHILS ABSOLUTE AUTO 12.35 K/mm3 (1.96-9.15); NEUTROPHILS PERCENT AUTO 76 % (41-73); NRBC ABSOLUTE 0.15 K/mm3 (0.00-0.02); NRBC Auto 0.9 /100 WBC (0.0-0.2); Platelet Count 267 K/mm3 (150-400); RDW Coefficient Variation 16.9 % (11.7-14.2); RDW Standard Deviation 53.9 fL (35.1-46.3); Red Blood Cell Count 2.92 M/mm3 (3.80-5.20); White Blood Cell Count 16.26 K/mm3 (4.00-11.30)
[2020-06-10 06:22] LABS: Alanine Aminotransfer (ALT/SGP 8 U/L (12-78); Albumin, Blood 1.9 g/dL (3.4-5.0); Albumin/Globulin Ratio 0.6 (0.8-1.8); Alk Phos 76 U/L (50-136); Anion Gap 5 mmol/L (6-16); Aspartate Aminotrans (AST/SGOT 12 U/L (12-37); Bilirubin, Total 0.4 mg/dL (0.1-1.0); Blood Urea Nitrogen 15 mg/dL (8-24); Bun/Creatinine Ratio 18.5 (12.0-20.0); CO2, Blood 23 mmol/L (21-32); Calcium, Blood 7.6 mg/dL (8.5-10.1); Chloride, Blood 112 mmol/L (98-108); Creatinine, Blood 0.81 mg/dL (0.40-1.00); Globulin, Blood 3.2 g/dL (2.2-4.0); Glomerular Filtration Rate >60 (60-); Glucose, Blood 68 mg/dL (70-99); Phosphorus, Blood 2.6 mg/dL (2.5-4.9); Sodium, Blood 140 mmol/L (136-145); Total Protein, Blood 5.1 g/dL (6.4-8.2)
--- NOTE | 2020-06-10 06:45 | NUR ---
HYPOGLYCEMIA 0600 CBG RESULT OF 67, PT PROVIDED JUICE AND JELLO. PT HAD FEW SIPS OF APPLE JUICE AND REPORTED MODERATE NAUSEA. ZOFRAN PROVIDED, FOLLOW CBG RESULT OF 54. CALL PLACED TO DR BRUCE, HYPOGLYCEMIA PROTOCOL ORDERED, 06/11 AMP D50 ADMINISTERED. FOLLOW UP CBG RESULT 101. PT DENIES NAUSEA AT THIS TIME.
--- NOTE | 2020-06-10 06:53 | NUR ---
SHIFT SUMMARY PT REPORTS NOT SLEEPING WELL DURING NIGHT, STS SHE DOES NOT TAKE ANY SLEEP AIDS AT HOME BUT IN THE PAST SHE HAD BEEN PRESCRIBED XANAX FOR ANXIETY/SLEEP. O2 SATURATIONS> 90% ON RA, MONITOR SHOWS SINUS RHYTHM WITH HR 60'S-70'S, HYPOTENSION NOTED WITH MAPS> 60, PT DENIES DIZZINESS/CP/SOB. HYPOGLYCEMIA THIS AM (SEE PREVIOUS NOTE). PT CONTINUES TO HAVE BLACK STOOL, MALIHA OLIVO'D THIS AM. WOUND CLEANSED AND DRESSING CHANGED WITH EACH ATTENDS CHANGE. PT HODGSON AND IS ABLE TO REPOSTIONE SELF BUT NEEDS ENCOURAGEMENT TO DO SO. CALL LIGHT WITHIN REACH. EDUCATED PT ON IMPORTANCE OF NOTIFYING NURSING OF NEEDS AND IMPORTANCE OF MOVEMENT/AMBULATION.
--- NOTE | 2020-06-10 11:18 | NUR ---
AM NOTE... ASSUMED CARE OF PT APROX 0700, PT IS A&Ox4 AND ADMITTED FOR GI BLEED WITH EGD DONE ON 06/08. PT'S VS HAVE BEEN STABLE UNTIL 0500 WHEN HER BP WENT FROM 90'S/60'S TO 80'S/50'S, PT'S BPs CONTINUED TO DROP DOWN TO THE 70'S SYSTOLIC WITH MAPS LESS THAN 65. PROVIDERS AWARE AND ORDERS OBTAINED TO GIVE 1000MLS BOLUS OF NS. PT C/O OF FEELING "REALLY TIRED" AND "OFF AND ON DIZZY." PT HAS HAD 4 LARGE LIQUID BLACK/MELENA STOOLS SINCE 0700 THIS AM. A RECTAL TUBE WAS PLACED TO HELP PROTECT THE PRESSURE ULCER NEAR THE PT'S RECTUM. THIS PRESSURE ULCER HAS REQUIRED A DRESSING CHANGE WITH EACH BM TO CLEAN THE STOOL FROM INSIDE THE ULCER. DURING THIS TIME THE PT'S OTHER VS HAVE BEEN STABLE, HR IN THE 70'S-80'S NSR. PT IS ON RA WITH O2 SATS>90%. BT PRESENT AND HYPOACTIVE, ABD IS SOFT AND NONTENDER TO PALP. PT REFUSED BREAKFAST THIS AM SAYING SHE WASN'T HUNGRY. CALL LIGHT IN REACH WILL CONTINUE TO MONITOR.
[2020-06-10 11:37] LABS: Hematocrit 20.6 % (33.0-51.0); Hemoglobin 6.5 g/dL (11.5-16.0)
[2020-06-10 15:46] LABS: Source, Urine Catheter
[2020-06-10 15:49] LABS: Appearance, Urine Clear (Clear); Bilirubin, Urine Neg (Neg); Blood, Urine Neg (Neg); Color, Urine Yellow (P-Yellow); Glucose Qualitative, Urine Neg (Neg); Ketones, Urine Neg (Neg); Leukocyte Esterase, Urine Neg (Neg); Nitrite, Urine Neg (Neg); Protein, Urine Neg (Neg); Urobilinogen, Urine NORM (Normal)
--- NOTE | 2020-06-10 16:10 | NUR ---
PT UPDATE... PT HAS GOTTEN 2L OF NS AND 1 UNIT OF PRBCS PT'S BP IMPROVED TO MAPS >65 FOR APROX 2 HOURS, CURRENTLY HER BP HAS STARTED TO TREND BACK DOWN. PT IS TO GO TO THE STATE [employer]ATIONS DEPUTY DIRECTOR FOR AN ANGIO TO FIND AND STOP THE BLEEDING. DR. QUINTERO WAS AT THE BEDSIDE FOR PT CONSENT. A JETT CATH WAS PLACED PER ORDERS. RECTAL TUBE STILL IN PLACE. WILL CONTINUE TO MONITOR.
[2020-06-10 16:59] LABS: Hematocrit 19.7 % (33.0-51.0); Hemoglobin 6.5 g/dL (11.5-16.0)
--- NOTE | 2020-06-10 17:59 | NUR ---
SHIFT SUMMARY.... AT 1709 PT WAS STARTED ON CAMILLE AT 100MCG/MIN PER TO TITRATE FOR A MAP OF >65. HEALTH SERVICES COORDINATOR STAFF WERE AT THE BEDSIDE WAITING TO TRANSFER THE PT TO THE HEALTH SERVICES COORDINATOR. PT'S BP IMPROVED WITH THE CAMILLE AND THE PT LEFT TO THE HEALTH SERVICES COORDINATOR APROX 1715. PRIOR TO THE PT LEAVING IT WAS NOTED THAT HER HEART RATE DROPPED FROM THE 60'S-70'S TO THE 40'S-50'S, DR. SORIANO WAS MADE AWARE OF THIS. AFTER THE PT LEFT HER H&H RESULTS CAME IN, HER HGB WAS 6.5 AND HCT WAS 19.7 HEALTH SERVICES COORDINATOR STAFF WERE CALLED AND A UNIT OF PRBC WAS TAKEN DOWN TO THE HEALTH SERVICES COORDINATOR FOR THE PT. PT'S FAMILY WAS CALLED AND UPDATED ON THE PLAN OF CARE AND CURRENT SITUATION. WILL REPORT TO ONCPUNEET PRATER.
--- NOTE | 2020-06-10 18:44 | NUR ---
PT UPDATE... PT RETURNED FROM THE EMERGENCY DEPARTMENT WITH 3 COILS TO HER GASTRIC ARTERY AND AN ANGIO SEAL TO HER RIGHT GROIN. A QUAD LUMEN CENTRAL LINE WAS PLACE TO THE RIGHT GROIN. THE SITE IS SOFT BUT TENDER TO PALP, THERE IS A SMALL AREA OF BLEEDING TO THE SITE UNDER THE CHG. PT IS ON CAMILLE AT 100MCG/MIN WITH MAPS >65. PT IS AWAKE AND A&Ox4. PEDAL PULSES FAINT BUT PRESENT IN BLE. WILL CONTINUE TO MONITOR.
--- NOTE | 2020-06-10 20:00 | NUR ---
ASSUMPTION OF CARE PT RESTING IN BED, ORIENTED TO SELF, LOCATION, EVENT AND FOLLOWING DIRECTIONS. PTS MOOD CONTINUES TO BE LABILE FROM ANXIOUS AND TEARFUL TO CALM AND COOPERATIVE. O2 SATURATIONS> 90% ON RA. MONITOR SHOWS SINUS RHTYHM WITH HR 50'S-60'S, NEOSYNEPHRINE INFUSING TO MAINTAIN BP MAPS> 65. RECTAL TUBE IN PLACE AT BEGINNING OF SHIFT, PT HAD VERY LARGE LIQUID MAROON BOWEL MOVEMENT WITH CLOTS THAT LEAKED AROUND TUBE. RECTAL TUBE REMOVED PER PT REQUEST. DRESSING TO COCCYX WOUND CHAGNED WITH EACH BM/ATTENDS CHANGE. JETT IN PLACE WITH LITTLE OUTPUT. CALL LIGHT WITHIN REACH, PT ENCOURAGED TO USE WHEN ASSISTANCE IS NEEDED.
[2020-06-10 21:35] LABS: Hematocrit 18.7 % (33.0-51.0)
--- NOTE | 2020-06-10 22:00 | NUR ---
PT REPORTS LOW BACK PAIN AND ABD TENDERNESS. PT WITH SECOND VERY LARGE LIQUID MAROON BOWEL MOVEMENT WITH CLOTS. H+H DRAWN, RESULTS AND PT UPDATE TO DR SORIANO. SEE NEW ORDERS TO TRANSFUSE 2 UNITES PRBC.
[2020-06-11 05:52] LABS: BASOPHILS ABSOLUTE AUTO 0.06 K/mm3 (0.00-0.23); BASOPHILS PERCENT AUTO 0 % (0-2); EOSINOPHILS ABSOLUTE AUTO 0.16 K/mm3 (0.00-0.68); EOSINOPHILS PERCENT AUTO 1 % (0-6); Hematocrit 24.5 % (33.0-51.0); IMMATURE GRAN ABSOLUTE AUTO 0.29 K/mm3 (0.00-0.10); IMMATURE GRAN PERCENT AUTO 2 % (0-1); LYMPHOCYTES ABSOLUTE AUTO 1.99 K/mm3 (0.84-5.20); LYMPHOCYTES PERCENT AUTO 13 % (21-46); MONOCYTES ABSOLUTE AUTO 1.15 K/mm3 (0.16-1.47); MONOCYTES PERCENT AUTO 8 % (4-13); Mean Corpuscular HGB 26.1 pg (26.0-34.0); Mean Corpuscular HGB Conc 32.7 g/dL (31.5-36.5); NEUTROPHILS ABSOLUTE AUTO 11.43 K/mm3 (1.96-9.15); NEUTROPHILS PERCENT AUTO 76 % (41-73); Platelet Count 203 K/mm3 (150-400); RDW Coefficient Variation 23.9 % (11.7-14.2); RDW Standard Deviation 67.7 fL (35.1-46.3); Red Blood Cell Count 3.07 M/mm3 (3.80-5.20); White Blood Cell Count 15.08 K/mm3 (4.00-11.30)
[2020-06-11 05:53] LABS: Mean Corpuscular Volume 80 fL (80-100)
[2020-06-11 06:05] LABS: Albumin, Blood 1.8 g/dL (3.4-5.0); Anion Gap 6 mmol/L (6-16); Blood Urea Nitrogen 12 mg/dL (8-24); Bun/Creatinine Ratio 18.4 (12.0-20.0); CO2, Blood 20 mmol/L (21-32); Calcium, Blood 6.4 mg/dL (8.5-10.1); Chloride, Blood 119 mmol/L (98-108); Creatinine, Blood 0.65 mg/dL (0.40-1.00); Glomerular Filtration Rate >60 (60-); Glucose, Blood 89 mg/dL (70-99); Phosphorus, Blood 2.7 mg/dL (2.5-4.9); Potassium, Blood 3.5 mmol/L (3.5-5.5); Sodium, Blood 145 mmol/L (136-145)
--- NOTE | 2020-06-11 07:15 | NUR ---
SHIFT SUMMARY PT RESTED T/O NIGHT, REMAINS AROUSABLE TO VERBAL STIMULI AND ORIENTED x4. O2 SATURATIONS> 90% ON RA. MONITOR SHOWS SINUS RHYTHM WITH HR 50'S, NEOSYNEPHRINE INF TO MAINTAIN BP MAPS> 65, SEE FLOWSHEET FOR TITRATIONS. ABLE TO TITRATE DOWN ON CAMILLE AFTER 2 UNITS PRBC TRANSFUSION, AM HGB INCREASED TO 8.0. PT CONTINUES TO HAVE MAROON COLORED STOOLS, BUT BM'S HAVE DECREASED IN SIZE AND FREQUENCY T/O SHIFT. PT KEPT NPO T/O NIGHT, WITH SMALL SIP OF WATER THIS AM. PT ABLE TO REOSITIONS SELF IN BED BUT NEEDS ENCOURAGEMENT TO DO SO. JETT IN PLACE WITH GOOD OUTPUT THIS SHIFT. CALL LIGHT REMAINS WITH REACH, PT ENCOURAGED TO USE TO NOTIFY STAFF OF NEEDS.
--- NOTE | 2020-06-11 07:45 | NUR ---
ASSUMED CARE / DR GA: REPORT RECEIVED FROM HUGO Lopez RN. ASSUMED CARE OF THIS PT AT APPROX 0700. ON ASSESSMENT, THE PT IS AWAKE, A&O TO ALL. SHE IS SLOW TO RESPOND AT TIMES, TEARFUL & STS "MISSING FAMILY." LS CLEAR T/O, PT ON RA W/ O2 SATS > 92%. MONITOR SHOWS SB-SR W/ HR 50-60s. NEOSYNEPHRINE INFUSING 75 MCG/MIN W/ BP STABLE - TITRATION IN FLOWSHEET. PT HAS NO CURRENT GI COMPLAINTS, NO FURTHER MAROON BMs NOTED SINCE PRIOR SHIFT. JETT PATENT/ DRAINING YELLOW URINE. SKIN CONDITION FRAGILE W/ CHRONIC ULCER NOTED TO PT's COCCYX, DRESSING CURRENTLY CDI. DR GA AT BEDSIDE TO EVAL PT THIS AM. SHE STS OKAY FOR CLEAR LIQUIDS THIS MORNING. MAY ADVANCE TO FULL LIQUIDS THIS AFTERNOON IF PT's H&H CHECKS AT 1000 & 1400 REMAIN STABLE (HGB 7.3 - 8.3 ACCEPTABLE RANGE). IMPORTANCE OF SMOKING CESSATION & FOLLOWING NEW MED REGIMEN (NO ASA, TAKE PPI) HAS ALSO BEEN DISCUSSED BY PROVIDER & PT. DR GA FEELS THAT SHE WILL LIKELY NEED TO F/U W/ DR VENTURA AN OUTPATIENT IN 4-6 WEEKS ALSO. WILL CONTINUE TO MONITOR & UPDATE NEEDED.
--- NOTE | 2020-06-11 08:30 | NUR ---
DR VENTURA: PROVIDER AT BEDSIDE TO EVAL PT. HE IS AGREEABLE TO ADVANCING PT's DIET TO FULL LIQUID IF H&H REMAINS STABLE x2 LAB DRAWS. NO CHANGES AT THIS TIME.
--- NOTE | 2020-06-11 09:30 | NUR ---
DR SORIANO: PROVIDER AT BEDSIDE TO EVAL PT. HE WOULD LIKE THE NEOSYNEPHRINE TO BE PLACED ON STANDBY AT THIS TIME, CURRENTLY INFUSING AT 60 MCG/MIN. COMPLETED AT 0930. HE REQUESTS THAT PHYSICAL THERAPY EVAL PT TODAY, WHO IS NORMALLY WC AT BASELINE, PER HER REPORT. ORDERS PLACED. NO OTHER CHANGES AT THIS TIME.
[2020-06-11 09:58] LABS: Hematocrit 23.4 % (33.0-51.0); Hemoglobin 7.6 g/dL (11.5-16.0)
--- NOTE | 2020-06-11 12:00 | NUR ---
WOUND CARE / UPDATE: WOUND TO COCCYX HAS BEEN THOROUGHLY CLEANSED, DRIED & DRESSING CHANGED. CALCIUM ALGINATE & GENTAMICIN APPLIED PER ORDERS. NEW MEPILEX COVERING WOUND & SURROUNDING AREA. THIS RN HAS CALLED THE [facility] R/T NURSE NOTIFY ORDER PLACED BY DR JONES FOR [facility] STAFF TO EVAL PT. THEY STATE THAT THEY DO NOT CURRENTLY HAVE ENOUGH STAFF TO COMPLETE ANY INPATIENT EVALS AT THIS TIME & THAT IF THE PROVIDER WOULD LIKE TO HAVE THE PT SEEN, IT WILL NEED TO HAPPEN ON AN OUTPATIENT BASIS.
[2020-06-11 14:50] LABS: Hematocrit 23.3 % (33.0-51.0); Hemoglobin 7.6 g/dL (11.5-16.0)
--- NOTE | 2020-06-11 15:40 | NUR ---
DR QUINTERO: CALL TO [facility] RN, TO PROVIDE DR QUINTERO W/ AN UPDATE REGARDING PT's CURRENT H&H & CONTINUED DARK TARRY STLS W/ CLOTS. AT THIS TIME, THE PROVIDER WOULD LIKE TO WAIT & WATCH. DEPENDING ON 1729 H&H RESULTS, THE PT MAY RETURN TO THE [facility] TE[facility]NICAL LEAD TONIGHT FOR F/U PROCEDURE. SHE IS OKAY TO CONTINUE HAVING CLEAR LIQUIDS AT THIS TIME.
--- NOTE | 2020-06-11 17:42 | NUR ---
DR GA: PROVIDER AT BEDSIDE THIS EVENING. SHE WOULD LIKE THE PT TO STAY ON A CLEAR LIQUID DIET FOR NOW. STS SHE WILL LIKELY BE ABLE TO ADVANCE TOMORROW BUT DUE TO PT's CONTINUED LARGE BLACK TARRY BMs W/ CLOTS.
[2020-06-11 18:13] LABS: Hematocrit 24.3 % (33.0-51.0); Hemoglobin 7.8 g/dL (11.5-16.0)
--- NOTE | 2020-06-11 19:15 | NUR ---
ASSUMPTION OF CARE RECEIVED REPORT FROM DONNELL PRATER, ASSUMED CARE OF PATIENT. PATIENT A/O, DENIES DISCOMFORTS. CBG 61, MILTON PROVIDED. PATIENT TOLERATING WELL. D51/2 NS INFUSING ORDERED. JETT PATENT AND DRAINING. CALL LIGHT IN REACH. WILL REVIEW ORDERS AND TREAT PRESCRIBED.
--- NOTE | 2020-06-11 19:31 | NUR ---
SHIFT SUMMARY: NO ACUTE CHANGES SINCE PRIOR UPDATES. PT REMAINS A&O, PLEASANT & COOPERATIVE. PT ON RA W/ O2 SATS > 95%. MONITOR SHOWS SB-SR W/ HR 50-60s. NEOSYNEPHRINE INFUSING AT 30 MCG/MIN W/ BP CHARTED. PT IS TOLERATING PO INTAKE OF CLEAR LIQUIDS WELL & DENIES NAUSEA. CONTINUES HAVING LARGE BLACK TARRY BMs W/ COPIOUS CLOTS NOTED. JETT PATENT/ DRAINING CLEAR YELLOW URINE. SKIN OVERALL CDI W/ DRESSING TO COCCYX CHANGED THIS SHIFT. REPORT HAS BEEN GIVEN TO ZENOBIA Timmons RN TO ASSUME CARE.
--- NOTE | 2020-06-12 | NUR ---
REASSESSMENT NO ACUTE CHANGES FROM INITIAL ASSESSMENT. PATIENT DENIES DISCOMFORTS OR NEEDS. VITALS STABLE, CAMILLE CONTINUES AT 30MCG/HR. WILL CONTINUE TO MONITOR, CALL LIGHT IS WITHIN REACH.
[2020-06-12 01:06] LABS: Hematocrit 22.9 % (33.0-51.0); Hemoglobin 7.5 g/dL (11.5-16.0)
[2020-06-12 01:26] LABS: Albumin, Blood 1.8 g/dL (3.4-5.0); Anion Gap 6 mmol/L (6-16); Blood Urea Nitrogen 8 mg/dL (8-24); Bun/Creatinine Ratio 12.3 (12.0-20.0); CO2, Blood 21 mmol/L (21-32); Calcium, Blood 7.2 mg/dL (8.5-10.1); Chloride, Blood 117 mmol/L (98-108); Creatinine, Blood 0.65 mg/dL (0.40-1.00); Glomerular Filtration Rate >60 (60-); Glucose, Blood 88 mg/dL (70-99); Phosphorus, Blood 2.4 mg/dL (2.5-4.9); Potassium, Blood 3.3 mmol/L (3.5-5.5); Sodium, Blood 144 mmol/L (136-145)
--- NOTE | 2020-06-12 04:00 | NUR ---
REASSESSMENT NO ACUTE CHANGES FROM PREVIOUS ASSESSMENT. VITALS STABLE WITH CAMILLE AT 40MCG/HR. NO S/S OF BLEEDING, PATIENT DENIES DISTRESS. WILL CONTINUE TO MONITOR.
[2020-06-12 06:11] LABS: Hematocrit 22.3 % (33.0-51.0)
--- NOTE | 2020-06-12 06:52 | NUR ---
SHIFT SUMMARY PATIENT REMAINED A/O, NO ACUTE CHANGES THROUGH SHIFT. TRENDED H&H RESULTED. CAMILLE TITRATED FOR BLOOD PRESSURES. PROTONIX AND IVF INFUSING ORDERED. JETT PATENT AND DRAINING CLEAR, YELLOW URINE. NEW PATCH TO COCCYX PLACED. WILL CONTINUE TO MONITOR AND REPORT TO ONCOMING RN.
--- NOTE | 2020-06-12 07:03 | NUR ---
H&H REPORTED MORNING H&H TO DR. VENTURA. NO NEW ORDERS RECEIVED.
--- NOTE | 2020-06-12 09:19 | NUR ---
ASSUMED CARE: REPORT RECEIVED FROM DEBORAH Osborn RN & ADIEL Hardy RN. ASSUMED CARE OF THIS PT AT APPROX 0900. ON ASSESSMENT, THE PT IS AWAKE, A&O, PLEASANT & COOPERATIVE. SHE STS FEELING HUNGRY BUT DENIES ANY PAIN OR SOB. LS CLEAR T/O, PT ON RA W/ O2 SATS > 95%. MONITOR SHOWS SB-SR W/ HR 50-60s, NEOSYNEPHRINE INFUSING AT 40 MCG/MIN FOR HYPOTENSION - SEE FLOWHSHEET FOR TITRATION. PT CONTINUES ON CLEAR LIQUID DIET & IS TOLERATING THIS WELL, ALTHOUGH REQUESTING TO HAVE DIET ADVANCED JONY. JETT IN PLACE, PATENT/ DRAINING YELLOW URINE. SKIN CONDITION OVERALL CDI. WOUND TO COCCYX IS CHRONIC, DRESSING TO BE CHANGED THIS SHIFT. WILL CONTINUE TO MONITOR & UPDATE NEEDED.
--- NOTE | 2020-06-12 10:32 | NUR ---
DR APONTE, RESIDENT: PROVIDER AT BEDSIDE TO EVAL PT. SHE IS CONSIDERING ORDERING ANOTHER UNIT OF PRBCs FOR THIS PT R/T DECLINE NOTED IN H&H AND CONTINUED HYPOTENSION. NO OTHER CHANGES AT THIS TIME.
--- NOTE | 2020-06-12 10:40 | NUR ---
DR GA: PROVIDER HAS RETURNED CALL REGARDING PT's CURRENT DIET ORDERS. SHE WAS ABLE TO SEE THE PT THIS MORNING & IS OKAY W/ THE PT's DIET ADVANCING TO FULL LIQUID W/ APPROVAL FROM PT's OTHER CARE PROVIDERS. WILL CALL DR QUINTERO TO ENSURE THAT HE IS OKAY W/ THIS CHANGE & THAT HE HAS NO PLANS FOR F/U PROCEDURE.
--- NOTE | 2020-06-12 10:55 | NUR ---
DR QUINTERO: CALL TO PROVIDER REGARDING ADVANCING PT's DIET. H&H TREND & PT's CONDITION HAS BEEN DISCUSSED, HE HAS NO CURRENT PLANS FOR PT TO RETURN TO [employer]. ORDERS PLACED FOR FULL LIQUID DIET. HE WILL CONTINUE TO MONITOR PT.
--- NOTE | 2020-06-12 13:10 | NUR ---
WOUND DRESSING CHANGE: COCCYX WOULD HAS BEEN THOROUGHLY CLEANSED W/ WOUND SPORTS MARKETING COORDINATOR. PACKED W/ CALCIUM ALGINATE & GENTAMICIN OINT USED AT SITE PER ORDERS. NEW COCCYX MEPILEX PLACED OVER WOUND & SURROUNDING TISSUE.
--- NOTE | 2020-06-12 17:34 | NUR ---
SHIFT SUMMARY: NO ACUTE CHANGES SINCE PRIOR UPDATES. PT A&O, PLEASANT & COOPERATIVE. SHE HAS BEEN LESS TEARFUL THIS SHIFT & STS OVERALL FEELING "A LITTLE BETTER." PT ON RA W/ O2 SATS > 95%. MONITOR SHOWS SB-SR W/ HR 50-70s. NEOSYNEPHRINE ON STANDBY FOR APPROX 3 HRS BEFORE RESUMING AT 20 MCG/MIN FOR HYPOTENSION W/ SBP 70s. BP NOW IMPROVED W/ SBP 100s & MAP > 65. PT HAS C/O NAUSEA x1 THIS SHIFT AFTER DRINKING A SMALL AMNT OF PINEAPPLE JUICE & BELIEVES IT WAS "TOO ACIDIC." MEDS PER EMAR RESOLVED NAUSEA. SHE HAS HAD ONE SMALL BLACK LIQUID BM W/ NO CLOTS NOTED. JETT PATENT/ DRAINING YELLOW URINE. SKIN CONDITION OVERALL INTACT, DRESSING TO COCCYX CHANGED THIS SHIFT NOTED PRIOR. Q2H REPOSITIONING THIS SHIFT MAINTAIN SKIN INTEGRITY. WILL CONTINUE TO MONITOR & REPORT OFF TO ONCOMING RN.
[2020-06-12 18:32] LABS: Hematocrit 23.4 % (33.0-51.0); Hemoglobin 7.5 g/dL (11.5-16.0)
--- NOTE | 2020-06-12 19:11 | NUR ---
ASSUMPTION OF CARE RECEIVED REPORT FROM DONNELL PRATER. ASSUMED CARE OF PATIENT. CAMILLE INFUSING AT 20MCG/MIN, IVF INFUSING ORDERED. PATIENT DENIES NEEDS OR DISCOMFORTS AT THIS TIME. VITALS STABLE. CALL LIGHT IS WITHIN REACH. WILL REVIEW ORDERS AND TREAT PRESCRIBED.
--- NOTE | 2020-06-13 00:05 | NUR ---
REASSESSMENT NO ACUTE CHANGES FROM PREVIOUS ASSESSMENT. PATIENT DENIES NEEDS OR DISCOMFORTS. CAMILLE TITRATED FOR BLOOD PRESSURE ORDERED. CALL LIGHT IN REACH.
--- NOTE | 2020-06-13 04:00 | NUR ---
REASSESSMENT NO ACUTE CHANGES FROM PREVIOUS ASSESSMENT. PATIENT EASILY AWOKE AND DENIED NEEDS. VITALS STABLE. CAMILLE CONTINUES AT 40MCG.
[2020-06-13 05:38] LABS: Hematocrit 22.2 % (33.0-51.0); Hemoglobin 7.1 g/dL (11.5-16.0)
[2020-06-13 05:56] LABS: Albumin, Blood 1.6 g/dL (3.4-5.0); Anion Gap 6 mmol/L (6-16); Blood Urea Nitrogen 4 mg/dL (8-24); Bun/Creatinine Ratio 6.9 (12.0-20.0); CO2, Blood 22 mmol/L (21-32); Calcium, Blood 7.4 mg/dL (8.5-10.1); Chloride, Blood 116 mmol/L (98-108); Creatinine, Blood 0.58 mg/dL (0.40-1.00); Glomerular Filtration Rate >60 (60-); Glucose, Blood 89 mg/dL (70-99); Phosphorus, Blood 3.2 mg/dL (2.5-4.9); Potassium, Blood 3.7 mmol/L (3.5-5.5); Sodium, Blood 144 mmol/L (136-145)
--- NOTE | 2020-06-13 06:02 | NUR ---
SHIFT SUMMARY PATIENT WITH NO ACUTE EVENTS OVER NIGHT. CAMILLE TITRATED FOR BLOOD PRESSURE CONTROL. NO ACTIVE BLEEDING NOTED. MEDICATED FOR PAIN IN LOWER BACK CHARTED. JETT REMAINED PATENT AND DRAINING. WILL CONTINUE TO MONITOR AND REPORT TO ONCOMING RN.
--- NOTE | 2020-06-13 07:30 | NUR ---
PT RECEIVED FROM MOI FREGOSO. PT HAD UNPRODUCTIVE NIGHT. SHE IS PLEASANT AND DENIES ANY C/O. SHE IS ON CAMILLE AT 40, WILL TITRATE TO BLOOD PRESSURE.
--- NOTE | 2020-06-13 11:00 | NUR ---
DR. PINA, ORDERS FOR 1 UNIT PRBC'S. STARTED. PT TOLERATING WELL. DR. GA IN AND SIGNED OFF CASE UNLESS NEEDED. PT IN GOOD SPIRITS TODAY, WORKING ON HER EATING AND OVERALL FEELING BETTER.
--- NOTE | 2020-06-13 13:00 | NUR ---
KILEY, FIELD MAP EDITOR IN TO SEE PATIENT, ASSESS HER FOOD SITUATION. ADVANCING HER DIET. PT TOLERATING BLOOD TRANSFUSION WELL.
--- NOTE | 2020-06-13 15:00 | NUR ---
CALL IN TO DR. OWENS, ALBUMIN 1.7, ORDERS REC'D FOR 2 BAGS ALBUMIN TO BE GIVEN. ASKED TO LEAVE JETT IN PLACE, COCCYX WOUND IS STILL AN ISSUE. HE AGREED. DRESSING CHANGE WAS DONE TO THE COCCYX, WITH PARTIAL BED BATH. PT WAS MEDICATED PRIOR TO START. TOLERATED WELL.
--- NOTE | 2020-06-13 15:58 | NUR ---
PT COMPLAINING THAT THE RIGHT POWER GLIDE SIGHT IS SUPER PAINFUL, BRUISING AND SWELLING NOTED. POWER GLIDE DC'D AND ORDER FROM FOR PICC. MOI BOOGIE IN TO START A PICC.
--- NOTE | 2020-06-13 17:35 | NUR ---
DAMIEN HAS HAD A GOOD SHIFT, SHE HAS BEEN MORE ENERGETIC, ATE WELL, TOLERATED HER 1 UNIT OF PRBC'S AND ALBUMIN X 2. SHE WALKED WITH P/T TO THE WINDOW AND BACK. ASSISTED WITH TURNING AND HELPED WITH POSITIONING. SHE TOLERATED THE WOUND DRESSING CHANGE WELL. WAS BY TO VISIT AND BROUGHT HER COLORING BOOKS AND THAT MADE HER VERY HAPPY. NEOSYNEPHRINE REMAINS ON AT 20, SHE WAS UNABLE TO TOLERATE HAVING IT OFF FOR VERY LONG, WITH HER SBP DROPPING TO THE 70'S.
[2020-06-13 18:23] LABS: BASOPHILS ABSOLUTE AUTO 0.04 K/mm3 (0.00-0.23); BASOPHILS PERCENT AUTO 0 % (0-2); EOSINOPHILS ABSOLUTE AUTO 0.27 K/mm3 (0.00-0.68); EOSINOPHILS PERCENT AUTO 3 % (0-6); Hematocrit 24.3 % (33.0-51.0); Hemoglobin 7.8 g/dL (11.5-16.0); IMMATURE GRAN ABSOLUTE AUTO 0.08 K/mm3 (0.00-0.10); IMMATURE GRAN PERCENT AUTO 1 % (0-1); LYMPHOCYTES ABSOLUTE AUTO 1.94 K/mm3 (0.84-5.20); LYMPHOCYTES PERCENT AUTO 19 % (21-46); MONOCYTES ABSOLUTE AUTO 0.84 K/mm3 (0.16-1.47); MONOCYTES PERCENT AUTO 8 % (4-13); Mean Corpuscular HGB 26.5 pg (26.0-34.0); Mean Corpuscular HGB Conc 32.1 g/dL (31.5-36.5); Mean Corpuscular Volume 83 fL (80-100); Mean Platelet Volume 10.2 fL (9.1-12.4); NEUTROPHILS ABSOLUTE AUTO 7.34 K/mm3 (1.96-9.15); NEUTROPHILS PERCENT AUTO 70 % (41-73); Platelet Count 276 K/mm3 (150-400); RDW Coefficient Variation 21.7 % (11.7-14.2); RDW Standard Deviation 62.1 fL (35.1-46.3); Red Blood Cell Count 2.94 M/mm3 (3.80-5.20); White Blood Cell Count 10.51 K/mm3 (4.00-11.30)
--- NOTE | 2020-06-13 19:15 | NUR ---
ASSUMING PT CARE: PT RESTING IN BED. ALERT & APPROPRIATELY INTERACTIVE W/ STAFF. REPORTS NO COMPLAINTS. R FEMORAL CENTRAL LINE REMAINS PATENT W/ NEOSYNEPHRINE GTT @ 20mcg/min. JUAREZ PICC PATENT W/ D5 1/2NS GTT @ 100ml/hr. SBP LOW 100s. WILL TITRATE MEDS FOR MAP >65. SEE SHIFT ASSESSMENT.
[2020-06-14 06:07] LABS: Hematocrit 24.2 % (33.0-51.0); Hemoglobin 7.7 g/dL (11.5-16.0)
--- NOTE | 2020-06-14 06:16 | NUR ---
SHIFT SUMMARY: PT SLEPT WELL FOR MOST OF THE NIGHT. AWOKE x3 TO REQUEST PAIN MEDS & FOR REPOSITIONING. MAP REMAINED STABLE THROUGHOUT THE NIGHT, PHENYLEPHRINE ON STANDBY AT THIS TIME & PT CONTINUES TO TOLERATE WELL. 3000ml PALE YELLOW OUTPUT THIS SHIFT. NO NEW CHANGES IN PT STATUS. PLAN FOR POSSIBLE STATUS CHANGE TODAY IF PT CONTINUES TO HAVE SUPPORTIVE MAP W/OUT PHENYLEPHRINE.
[2020-06-14 06:27] LABS: Alanine Aminotransfer (ALT/SGP 7 U/L (12-78); Albumin, Blood 2.2 g/dL (3.4-5.0); Albumin/Globulin Ratio 0.9 (0.8-1.8); Alk Phos 71 U/L (50-136); Anion Gap 5 mmol/L (6-16); Aspartate Aminotrans (AST/SGOT 5 U/L (12-37); Bilirubin, Total 0.2 mg/dL (0.1-1.0); Blood Urea Nitrogen 7 mg/dL (8-24); Bun/Creatinine Ratio 9.5 (12.0-20.0); CO2, Blood 24 mmol/L (21-32); Calcium, Blood 7.5 mg/dL (8.5-10.1); Chloride, Blood 114 mmol/L (98-108); Creatinine, Blood 0.74 mg/dL (0.40-1.00); Globulin, Blood 2.4 g/dL (2.2-4.0); Glomerular Filtration Rate >60 (60-); Glucose, Blood 119 mg/dL (70-99); Sodium, Blood 143 mmol/L (136-145); Total Protein, Blood 4.6 g/dL (6.4-8.2)
--- NOTE | 2020-06-14 08:00 | NUR ---
PT A&OX4. DENIES PAIN AT THIS TIME. ECG SHOWS SR. MAP 92-NEOSYNEPHRINE REMAINS ON STANDBY. LUNGS DIMINISHED AND SLIGHTLY COARSE L>R. OCCASIONAL MOIST, NONPRODUCTIVE COUGH. ENCOURAGED C&DB. SATS>90% ON RA. NO ACUTE GIB OR COMPLAINT. JETT CONTINUES TO DRAIN LARGE AMOUNTS OF CLEAR, YELLOW URINE. FOAM DRESSING INTACT TO COCCYX-PT REMINDED TO SHIFT HER HIPS AND WEIGHT OFF OF HER COCCYX AND BOTTOM HOURLY TO PROMOTE WOUND HEALING.
--- NOTE | 2020-06-14 08:22 | NUR ---
DR. OWENS HERE TO SEE PT. UPDATED TO CURRENT VS AND STATUS. PT TO BE CHANGED TO PCU STATUS IF BP REMAINS STABLE OFF OF NEOSYNEPHRINE DRIP-OK TO CHANGE STATUS AT 1000. DISCUSSED PAIN MANAGEMENT AND NORCO ORDERED-SEE EMAR.
--- NOTE | 2020-06-14 09:45 | NUR ---
PT OOB WITH PT. PT STATES "I DON'T FEEL LIKE IT RIGHT NOW!" IN RESPONSE TO RN AND PT ENCOURAGING HER TO SIT UP IT THE CHAIR FOR A WHILE. PT ASSISTED PT BACK TO BED. PT INCONTINENT OF MODERATE AMOUNT OF BROWN, LIQUID STOOL. BED BATH AND LINEN CHANGE COMPLETED. WOUND CARE DONE. COCCYX WOUND APPEARS TO BE HEALING QUITE WELL. THE SURROUNDING SKIN IS PINK. SMALL AMOUNT OF EXCUDATE NOTED. GENLTY CLEANSED THE WOUND WITH WOUND CLEANSER, PATTED DRY, AND PACKED WITH CALCIUM ALGINATED. THE WOUND IS REQUIRING LESS ALGINATE FOR PACKING- COVERED WOUND WITH FOAM DRESSING AND POSITIONED PT TO COMFORT ON RIGHT SIDE. PT HAS REMAINED OFF OF THE NEOSYNEPHRINE DRIP. RIGTH FEMORAL C.L. HAS BEEN REMOVED-VS STABLE. PT NOW PCU STATUS.
--- NOTE | 2020-06-14 11:39 | NUR ---
PT WATCHING TV. DENIES COMPLAINTS AT THIS TIME. BP 113/73 WITH MAP 90. ECG CONTNUES SR. MAINTAINS SATS>90% ON RA.
--- NOTE | 2020-06-14 16:00 | NUR ---
PT MEDICATED @ 1530 FOR COMPLAINT OF LOW BACK PAIN-SEE EMAR. CURRENTLY, PT WATCHING TV WITHOUT NOTED DISTRESS. PT STATES THAT THE PAIN IS AT A TOLERABLE LEVEL AT THIS TIME. ECG CONTINUES SR AND BP 99/56 WITH MAP 64. NO GI DISTRESS. PT HAS BEEN REPOSITIONING HERSELF IN BED EVERY 1-2 HOURS WITHOUT REMINDERS. PT MOTHER CALLED AND REPORTED HER CONCERNS FOR PT SAFETY UPON DISCHARGE. PT MOTHER MICHELLE REPORTS THAT PT "DOES NOT TAKE CARE OF HERSELF AT HOME. SHE DOES NOT TAKE HER MEDS LIKE SHE IS SUPPOSED TO AND THERE IS NO ONE AT THE HOUSE THAT CAN HELP HER." MICHELLE STATES THAT PT IS VERY "NONCOMPLIANT" WITH HER MEDICATION REGIME. FARZAD WYLIE IN CARE MANAGEMENT CONTACTED AND TOLD OF PT MOTHER'S CONCERNS. DISCUSSED PT NEEDS WITH PT-PT BECAME VERY DEFENSIVE. PT STATES THAT SHE HAS "PLENTY OF PEOPLE THERE AT THE HOUSE TO TAKE CARE OF ME. I CAN DO MY OWN MEDS. MY MOM THINKS THAT I AM STUPID OR SOMETHING!!" RN EXPRESSED TO PT THAT STAFF AND FAMILY JUST WANT TO MAKE SURE THAT SHE HAS THE RESOURCES AVAILABLE TO HELP HER TO CONTINUE TO HEAL. PT STATES VERY ADEMETLY THAT SHE WILL "NEVER" GO TO REHAB OR SNF UNIT.
--- NOTE | 2020-06-14 19:00 | NUR ---
ASSUMED CARE NOTE: ASSUMED CARE OF PT AT 1900, RECEVIED REPORT FROM SANCHEZ RN. PT IS ALERT AND ORIENTEDX3. ABLE TO COMMUNICATE NEEDS. PT IS ON RA WITH SPO2 ABOVE 95% NO RESPRIATORY DISTRESS NOTED. PT IS IN SINUS RHYTHM WITH HR IN THE 60'S. BP TRENDING DOWN, WILL CONTINUE TO MONITOR. ABDOMEN NON-TENDER, BOWEL TONES HEARD IN ALL QUADRANTS. ATTENDS IN PLACE. JETT DRAINING TO GRAVITY, CLEAR YELLOW URINE NOTED. PT DENIES ANY NAUSEA/DIZZINESS/LIGHTHEADED AT THIS TIME. WILL CONTINUE TO MONITOR PT T/O SHIFT. CALL LIGHT WITHIN REACH.
--- NOTE | 2020-06-14 22:27 | NUR ---
CALLED HOSPITALIST ESTELLE, REGARDING LOWERING BP. PT IS ASYMTOMATIC AT THIS TIME. AWAITING ORDERS
[2020-06-14 23:13] LABS: Hematocrit 24.4 % (33.0-51.0); Hemoglobin 7.6 g/dL (11.5-16.0)
--- NOTE | 2020-06-14 23:43 | NUR ---
CALLED HOSPITALIST ESTELLE REGARDING H&H RESULTS, AND SBP IN THE 80'S, MAP BELOW 60. ORDERS TO INFUSE 500ML BOLUS OVER A PERIOD OF 1HR. WILL CONTINUE TO MONITOR.
--- NOTE | 2020-06-15 06:22 | NUR ---
SHIFT SUMMARY: SEE PREVIOUS NOTES. PT CONTINUES TO BE ALERT AND ORIENTEDX3. PT HAS BEEN IN NSR WITH HR IN THE 70'S. SBP IN THE 80-90'S, MAP BETWEEN 60-70. PT IS ASYMPTOMATIC. COMMUNICATED BP WITH PHYSICAN AND CHARGE NURSE. WILL GIVEN OFF IN REPORT. PT WAS GIVEN 500ML NS BOLUS THIS SHIFT FOR BP. PT HAS DENIED PAIN T/O SHIFT. PT NEEDS REMINDERS TO REPOSITION, HOWEVER CAN MOVE SELF. JETT DRAINING TO GRAVITY, GOOD URINE OUTPUT THIS SHIFT. WILL CONTINUE TO MONITOR PT UNTIL REPORT IS GIVEN TO ONCOMING SHIFT.
--- NOTE | 2020-06-15 07:19 | NUR ---
ASSUMED CARE RECEIVED REPORT FROM MOI RAJPUT. PT IS SITTING UP IN BED, ALERT, AND ORIENTED X 4. PT DENIES CHEST PAIN, SOB, AND NAUSEA. SINUS RHYTHM, RATE IN THE 70s, MAP > 60. SCDs IN PLACE, AND JETT IS PATENT AND DRAINING URINE. BED LOW/LOCKED. CALL LIGHT WITHIN REACH.
[2020-06-15 08:48] LABS: Hematocrit 25.8 % (33.0-51.0); Hemoglobin 8.2 g/dL (11.5-16.0)
[2020-06-15] MEDS ORDERED: PANT40 PO (13:23)
--- NOTE | 2020-06-15 14:34 | NUR ---
UPDATE PT OUT OF ICU AT 1420, PICKED UP BY A [facility] TO GO HOME. SHE STATES HER SON IS HOME TO ASSIST HER INTO THE HOUSE, AND TO HELP BRING IN BELONGINGS. EXTENSIVE EDUCATION GIVEN WITH DISCHARGE INSTRUCTIONS ON DIETARY CHANGES (EDUCATION MATERIALS GIVEN), THE IMPORTANCE OF GETTING AND TAKING PROTONIX (CALLED [facility] IN [place] AND LEFT A MESSAGE TODAY AT 1315), THE IMPORTANCE OF MOVING AROUND (AND REPOSITIONING WHEN SITTING/LAYING), USING THE TOILET (RATHER THAN JUST VOIDING IN HER ATTENDS) AND CLEANING/DRYING HER ISAAC-AREA TO AVOID FURTHER WOUND DETERIORATION. SHE STATES SHE UNDERSTANDS AND WILL BE FOLLOWING UP WITH HER PCP AT [place] AND WITH GASTROENTEROLOGY FOR A FOLLOW UP EGD. PHYSICAL THERAPY VISITED HER THIS MORNING AND GOT HER UP AND WALKING USING A WALKER, AND SHE TOLERATED IT WELL WITH NO ASSISTANCE OTHER THAN THE WALKER. THEIR RECOMENDATION WAS HAVING A HOME HEALTH VISITATION SET UP- WHICH IS THE GOAL AND WILL BE SET UP BY CARE MANAGEMENT AND WHEN THE PT GETS REESTABLISHED WITH HER PCP. HER WOUND DRESSING WAS COMPLETELY CHANGED AND THE PACKING WAS CHANGED (ALGINATE) -- WAS CLEAN DRY AND INTACT ON DISCHARGE. PT AWARE OF THE IMPORTANCE TO KEEP AREA CLEAN AND DRY. JETT WAS REMOVED THIS MORNING, AND PT WAS ABLE TO VOID AFTER JETT REMOVAL. PT HAS REFUSED ANY TALK REGARDING SENDING HER TO A SNF, DESPITE FAMILY's RECOMENDATION. PT OPEN TO HOME HEALTH THOUGH.
== END 2020-06-15 14:25 | disposition home or self-care (01) | DRG 853 ==
LOC: ER 01:36 → ICUW 04:06 → ICUE 04:06
PROVIDERS: Emergency Medicine; Family Medicine; Internal Medicine; Internal Medicine Critical Care Medicine; Internal Medicine Gastroenterology; Nurse Practitioner Acute Care; ADMIT Internal Medicine
PROC: 30233N1 Transfusion of Nonautologous Red Blood Cells into Peripheral Vein, Percutaneous Approach (ICD-10-PCS; 2020-06-08)
PROC: 0DD68ZX Extraction of Stomach, Via Natural or Artificial Opening Endoscopic, Diagnostic (ICD-10-PCS; 2020-06-08)
PROC: 3E02340 Introduction of Influenza Vaccine into Muscle, Percutaneous Approach (ICD-10-PCS; 2020-06-08)
PROC: 0BH18EZ Insertion of Endotracheal Airway into Trachea, Via Natural or Artificial Opening Endoscopic (ICD-10-PCS; 2020-06-08)
PROC: 5A1945Z Respiratory Ventilation, 24-96 Consecutive Hours (ICD-10-PCS; 2020-06-08)
PROC: 30233K1 Transfusion of Nonautologous Frozen Plasma into Peripheral Vein, Percutaneous Approach (ICD-10-PCS; principal; 2020-06-08 11:00)
PROC: 04L Lower Arteries, Occlusion (ICD-10-PCS; 2020-06-10)
PROC: 3E043XZ Introduction of Vasopressor into Central Vein, Percutaneous Approach (ICD-10-PCS; 2020-06-10)
PROC: B412ZZZ Fluoroscopy of Hepatic Artery (ICD-10-PCS; 2020-06-10)
PROC: B414ZZZ Fluoroscopy of Superior Mesenteric Artery (ICD-10-PCS; 2020-06-10)
PROC: B41BZZZ Fluoroscopy of Other Intra-Abdominal Arteries (ICD-10-PCS; 2020-06-10)
PROC: 02HV33Z Insertion of Infusion Device into Superior Vena Cava, Percutaneous Approach (ICD-10-PCS; 2020-06-13)
DX: A41.9 Sepsis, unspecified organism (principal); K26.4 Chronic or unspecified duodenal ulcer with hemorrhage; E11.10 Type 2 diabetes mellitus with ketoacidosis without coma; J96.01 Acute respiratory failure with hypoxia; R57.8 Other shock; G92 Toxic encephalopathy; K25.4 Chronic or unspecified gastric ulcer with hemorrhage; J69.0 Pneumonitis due to inhalation of food and vomit; N17.9 Acute kidney failure, unspecified; E87.2 Acidosis; D62 Acute posthemorrhagic anemia; I10 Essential (primary) hypertension; T68.XXXA Hypothermia, initial encounter; E88.09 Other disorders of plasma-protein metabolism, not elsewhere classified; Z20.822 Contact with and (suspected) exposure to COVID-19; F17.210 Nicotine dependence, cigarettes, uncomplicated; K44.9 Diaphragmatic hernia without obstruction or gangrene; L89.152 Pressure ulcer of sacral region, stage 2; E66.01 Morbid (severe) obesity due to excess calories; Z78.1 Physical restraint status; Z23 Encounter for immunization; Z68.33 Body mass index [BMI] 33.0-33.9, adult
CPT/HCPCS: 0241U; 31500; 31720; 36247; 36415; 36430; 36556; 36569; 36600; 37244; 51702; 70450; 71045; 74176; 75726; 75774; 80048; 80053; 80069; 81001; 81003; 82010; 82330; 82803; 82947; 83036; 83605; 83735; 84100; 84145; 85014; 85018; 85025; 85384; 85610; 85730; 86850; 86900; 86901; 86920; 86923; 87040; 87070; 87075; 87077; 87086; 87186; 87205; 88305; 88341; 88342; 93005; 93010; 94002; 94003; 96361-59; 96365-59; 96367-59; 96375-59; 97110; 97116; 97162; 97530; 99152; 99153; 99291-25; A9270; C1751; C1760; C1769; C1887; C1894; C9113; J0171; J0456; J0461; J0610; J0696; J1644; J1815; J2250; J2354; J2370; J2405; J2704; J3010; J3480; J7030; J7040; J7042; J7050; J7060; P9016; P9046; P9059; Q2038; Q9967

== ENCOUNTER 2020-06-26 16:22 | Inpatient (IN) | payer OTHER ==
[~2020-06-26] VITALS: Ht 165.1 cm; Wt 91.3 kg
[2020-06-26 17:00] LABS: Hematocrit 18.1 % (33.0-51.0); Mean Corpuscular Volume 81 fL (80-100); Mean Platelet Volume 9.3 fL (9.1-12.4); NRBC ABSOLUTE 0.55 K/mm3 (0.00-0.02); NRBC Auto 2.1 /100 WBC (0.0-0.2); Platelet Count 590 K/mm3 (150-400); RDW Coefficient Variation 20.7 % (11.7-14.2); RDW Standard Deviation 59.7 fL (35.1-46.3); Red Blood Cell Count 2.23 M/mm3 (3.80-5.20); White Blood Cell Count 26.82 K/mm3 (4.00-11.30)
[2020-06-26 17:05] LABS: Hemoglobin 5.8 g/dL (11.5-16.0)
[2020-06-26 17:14] LABS: International Normalized Ratio 1.02; Prothrombin Time Results 10.9 Sec (9.7-11.5)
[2020-06-26 17:15] LABS: Alanine Aminotransfer (ALT/SGP 14 U/L (12-78); Albumin/Globulin Ratio 0.6 (0.8-1.8); Alk Phos 139 U/L (50-136); Anion Gap 9 mmol/L (6-16); Aspartate Aminotrans (AST/SGOT 18 U/L (12-37); Bilirubin, Total 0.2 mg/dL (0.1-1.0); Blood Urea Nitrogen 40 mg/dL (8-24); Bun/Creatinine Ratio 43.5 (12.0-20.0); CO2, Blood 29 mmol/L (21-32); Calcium, Blood 7.8 mg/dL (8.5-10.1); Chloride, Blood 94 mmol/L (98-108); Creatinine, Blood 0.92 mg/dL (0.40-1.00); Globulin, Blood 3.4 g/dL (2.2-4.0); Glomerular Filtration Rate >60 (60-); Glucose, Blood 85 mg/dL (70-99); Potassium, Blood 2.6 mmol/L (3.5-5.5); Sodium, Blood 132 mmol/L (136-145); Total Protein, Blood 5.4 g/dL (6.4-8.2)
[2020-06-26 17:24] LABS: BASOPHILS PERCENT MAN 0 % (0-2); EOSINOPHILS PERCENT MAN 0 % (0-6); LYMPHOCYTES ABSOLUTE MAN 2.95 K/mm3 (0.84-5.20); LYMPHOCYTES PERCENT MAN 11 % (21-46); MONOCYTES ABSOLUTE MAN 0.53 K/mm3 (0.16-1.47); MONOCYTES PERCENT MAN 2 % (4-13); MYELOCYTE ABSOLUTE MAN 0.26 K/mm3 (0.00-0.00); MYELOCYTE PERCENT MAN 1 % (0-0); NEUTROPHILS ABSOLUTE MAN 23.06 K/mm3 (1.96-9.15); SEG NEUTROPHILS PERCENT MAN 86 % (41-73); TOTAL CELLS COUNTED 100
--- NOTE | 2020-06-26 20:25 | NUR ---
ADMIT RECEIVED FROM ER VIA GURNEY. AWAKE AND ALERT. ORIENTED AND COOPERATIVE. PT IS TEARFUL AT TIMES AND SLIGHTLY ANXIOUS. REPOSITIONS SELF IN BED. C/O "BOTTOM" PAIN FROM WOUND AND IS REQUESTING PAIN MEDICATION. MONITOR SHOWS NSR, RATE 90s. SBP 84. TEMP 99.6F. ATTENDS IN PLACE. KCL IVPB INFUSING PER ORDER. DENIES C/O NAUSEA AT THIS TIME. PT IS NPO PER ORDER. SEE ADMIT ASSESSMENT FOR FULL ASSESSMENT.
--- NOTE | 2020-06-26 20:55 | NUR ---
PRBC 2ND UNIT PRBC STARTED AT THIS TIME.
[2020-06-27 00:44] LABS: Hemoglobin 6.7 g/dL (11.5-16.0); Mean Corpuscular HGB 26.9 pg (26.0-34.0); Mean Corpuscular HGB Conc 31.9 g/dL (31.5-36.5); Mean Corpuscular Volume 84 fL (80-100); Mean Platelet Volume 9.2 fL (9.1-12.4); NRBC ABSOLUTE 0.26 K/mm3 (0.00-0.02); NRBC Auto 1.2 /100 WBC (0.0-0.2); Platelet Count 433 K/mm3 (150-400); RDW Coefficient Variation 18.7 % (11.7-14.2); RDW Standard Deviation 57.6 fL (35.1-46.3); Red Blood Cell Count 2.49 M/mm3 (3.80-5.20)
[2020-06-27 00:58] LABS: Anion Gap 11 mmol/L (6-16); Blood Urea Nitrogen 33 mg/dL (8-24); Bun/Creatinine Ratio 42.5 (12.0-20.0); CO2, Blood 26 mmol/L (21-32); Chloride, Blood 99 mmol/L (98-108); Creatinine, Blood 0.78 mg/dL (0.40-1.00); Glomerular Filtration Rate >60 (60-); Glucose, Blood 59 mg/dL (70-99); Potassium, Blood 3.2 mmol/L (3.5-5.5); Sodium, Blood 136 mmol/L (136-145)
[2020-06-27 01:11] LABS: BAND PERCENT MAN 5 % (0-8); BASOPHILS PERCENT MAN 0 % (0-2); EOSINOPHILS PERCENT MAN 0 % (0-6); LYMPHOCYTES ABSOLUTE MAN 1.77 K/mm3 (0.84-5.20); LYMPHOCYTES PERCENT MAN 8 % (21-46); MONOCYTES ABSOLUTE MAN 1.33 K/mm3 (0.16-1.47); MONOCYTES PERCENT MAN 6 % (4-13); MYELOCYTE ABSOLUTE MAN 0.44 K/mm3 (0.00-0.00); MYELOCYTE PERCENT MAN 2 % (0-0); NEUTROPHILS ABSOLUTE MAN 18.64 K/mm3 (1.96-9.15); SEG NEUTROPHILS PERCENT MAN 79 % (41-73); TOTAL CELLS COUNTED 100
[2020-06-27 06:22] LABS: Hematocrit 26.1 % (33.0-51.0); Hemoglobin 8.2 g/dL (11.5-16.0); Mean Corpuscular HGB 26.8 pg (26.0-34.0); Mean Corpuscular HGB Conc 31.4 g/dL (31.5-36.5); Mean Corpuscular Volume 85 fL (80-100); Mean Platelet Volume 8.8 fL (9.1-12.4); NRBC ABSOLUTE 0.17 K/mm3 (0.00-0.02); NRBC Auto 0.8 /100 WBC (0.0-0.2); Platelet Count 408 K/mm3 (150-400); Red Blood Cell Count 3.06 M/mm3 (3.80-5.20); White Blood Cell Count 21.34 K/mm3 (4.00-11.30)
--- NOTE | 2020-06-27 06:30 | NUR ---
SHIFT SUMMARY NO ACUTE CHANGES. TRANSFUSED 2 UNITS PRBC X 2 DURING NOC. H+H STABLE THIS AM. NO S/S BLEEDING. MEDICATED WITH ZOFRAN 4MG IV X 1 FOR C/O NAUSEA. MEDICATED WITH FENTANYL 25MCG IV X 3 DOSES FOR C/O 8/10 PAIN FROM COCCYX WOUND. INCONTINENT OF URINE. PROTONIX GTT CONTINUES PER ORDER. NS INFUSING AT 150CC/HR X 1 LITER FOR ORDER. WILL REPORT TO ONCOMING RN WHEN AVAILABLE.
[2020-06-27 06:40] LABS: Anion Gap 11 mmol/L (6-16); Blood Urea Nitrogen 26 mg/dL (8-24); Bun/Creatinine Ratio 35.5 (12.0-20.0); CO2, Blood 25 mmol/L (21-32); Calcium, Blood 7.3 mg/dL (8.5-10.1); Chloride, Blood 101 mmol/L (98-108); Creatinine, Blood 0.73 mg/dL (0.40-1.00); Glomerular Filtration Rate >60 (60-); Glucose, Blood 50 mg/dL (70-99); Potassium, Blood 3.2 mmol/L (3.5-5.5); Sodium, Blood 137 mmol/L (136-145)
[2020-06-27 06:55] LABS: BAND PERCENT MAN 3 % (0-8); BASOPHILS PERCENT MAN 0 % (0-2); EOSINOPHILS ABSOLUTE MAN 0.21 K/mm3 (0.00-0.68); EOSINOPHILS PERCENT MAN 1 % (0-6); LYMPHOCYTES ABSOLUTE MAN 2.13 K/mm3 (0.84-5.20); LYMPHOCYTES PERCENT MAN 10 % (21-46); METAMYELOCYTE ABSOLUTE MAN 0.64 K/mm3 (0.00-0.00); METAMYELOCYTE PERCENT MAN 3 % (0-0); MONOCYTES ABSOLUTE MAN 1.28 K/mm3 (0.16-1.47); MONOCYTES PERCENT MAN 6 % (4-13); MYELOCYTE ABSOLUTE MAN 0.21 K/mm3 (0.00-0.00); MYELOCYTE PERCENT MAN 1 % (0-0); NEUTROPHILS ABSOLUTE MAN 16.85 K/mm3 (1.96-9.15); SEG NEUTROPHILS PERCENT MAN 76 % (41-73); TOTAL CELLS COUNTED 100
--- NOTE | 2020-06-27 08:39 | NUR ---
ASSUMED CARE OF PT, REPORT RCV'D FROM MOI HODGE. PT ALERT AND ORIENTED, COOPERATIVE WITH CARE. PT DENIES ABDOMINAL PAIN AT REST AND WITH PALPATION. PT REPORTS PAIN D/T COCCYX WOUND, NOC NURSE CLEANED AND DRESSED WOUND. PT DENIES NEEDS AT THIS TIME. SEE FULL SHIFT ASSESSMENT.
[2020-06-27 10:01] LABS: Influenza A, PCR NEGATIVE (NEGATIVE); Influenza B, PCR NEGATIVE (NEGATIVE); Resp Syncytial Virus, PCR NEGATIVE (NEGATIVE); SARS-Cov-2 (COVID-19) PCR, MMC NEGATIVE (NEGATIVE)
[2020-06-27 12:48] LABS: Appearance, Urine Hazy (Clear); Bilirubin, Urine Neg (Neg); Blood, Urine Neg (Neg); Color, Urine Yellow (P-Yellow); Glucose Qualitative, Urine Neg (Neg); Ketones, Urine 3+ (Neg); Leukocyte Esterase, Urine 1+ (Neg); Nitrite, Urine Neg (Neg); Protein, Urine 1+ (Neg); Specific Gravity, Urine 1.005 (1.003-1.022); Urobilinogen, Urine NORM (Normal)
[2020-06-27 12:56] LABS: Red Blood Cells, Urine 0-2 /hpf (0-2); Squamous Epithelial Cells Many /hpf (Few)
[2020-06-27 12:57] LABS: Bacteria Few /hpf; Transitional Epithelial Cells Few /hpf (0-Rare)
--- NOTE | 2020-06-27 17:12 | NUR ---
06/27/20 1712 Oleg Islas PATIENT DETERMINED TO BE ASA APPROPRIATE FOR PROPOFOL SEDATION PRIOR TO START OF PROCEDURE BY DR. Jay Block Placed. 3-LEAD EKG REVIEWED WITH PHYSICIAN PRIOR TO START OF PROCEDURE. History, Chart, Medications and Allergies reviewed before start of procedure. MONITOR INTACT WITH CONTINUOUS PULSE OXIMETRY AND INTERMITTENT BP.O2 VIA N/C INTACT THROUGHOUT SEDATION/PROCEDURE.
--- NOTE | 2020-06-27 18:10 | NUR ---
SHIFT SUMMARY PT REMAINS ALERT AND ORIENTED, COOPERATIVE WITH CARE. PT HAD EGD @1700 THIS EVENING, DR. CHRISTIANSEN FOUND LARGE ULCER WITH NO EVIDENCE OF BLEEDING. PT UPDATED ON SCOPE AND PLAN OF CARE AND STATES UNDERSTANDING. PT HAD BLOOD SUGAR OF 50 THIS AM, CBB 62 @1000, RECHECKED AT 1744, CBG 31 (CL). DR. CHRISTIANSEN IN UNIT, STATES OK TO START PT ON LIQUID DIET. PT GIVEN APPLE JUICE AND 25 ML DEXTROSE. PLACED ORDER FOR Q4 BLOOD SUGARS AND WILL CONTINUE TO MONITOR CLOSELY UNTIL BLOOD GLUCOSE WITHIN NORMAL RANGE. PT'S BLOOD PRESSURE LABILE, MAP REMAINS GREATER THAN 60. PROTONIX GTT CONTINUES TO INFUSE. TMAX 99.6. TEMP JETT PATENT AND DRAINING TO GRAVITY. WILL REPORT TO ONCOMING NURSE.
--- NOTE | 2020-06-27 19:30 | NUR ---
ASSUMED PT CARE: REPORT TAKEN FROM RN CONSTANTINO. PT SITTING UP IN BED, WATCHING TV. APPROPRIATELY INTERACTIVE W/ STAFF, FOLLOWS COMMANDS, & IS ABLE TO RECALL MED Hx. RR EVEN & UNLABORED. HR 80s-90s, NSR PER CONT TRAUMA SURGEON. SBPs 70-90s W/ MAP >60. THIS IS UNCHANGED REPORTED BY PREVIOUS RN. CONTINUOUS PROTONIX GTT INF W/OUT DIFF. CALL LIGHT W/ IN REACH, PT DEMONSTRATES ABILITY TO MAKE NEEDS KNOWN. WILL CONTINUE TO MONITOR & REPORT APPROPRIATE.
[2020-06-28 04:01] LABS: Hematocrit 21.8 % (33.0-51.0); Hemoglobin 7.1 g/dL (11.5-16.0); Mean Corpuscular HGB 27.8 pg (26.0-34.0); Mean Corpuscular HGB Conc 32.6 g/dL (31.5-36.5); Mean Corpuscular Volume 86 fL (80-100); Mean Platelet Volume 8.8 fL (9.1-12.4); NRBC ABSOLUTE 0.14 K/mm3 (0.00-0.02); NRBC Auto 0.7 /100 WBC (0.0-0.2); Platelet Count 318 K/mm3 (150-400); RDW Coefficient Variation 18.4 % (11.7-14.2); RDW Standard Deviation 56.6 fL (35.1-46.3); Red Blood Cell Count 2.55 M/mm3 (3.80-5.20)
[2020-06-28 04:16] LABS: Anion Gap 5 mmol/L (6-16); Blood Urea Nitrogen 13 mg/dL (8-24); Bun/Creatinine Ratio 19.9 (12.0-20.0); CO2, Blood 29 mmol/L (21-32); Calcium, Blood 7.2 mg/dL (8.5-10.1); Chloride, Blood 102 mmol/L (98-108); Creatinine, Blood 0.65 mg/dL (0.40-1.00); Glomerular Filtration Rate >60 (60-); Glucose, Blood 64 mg/dL (70-99); Potassium, Blood 3.5 mmol/L (3.5-5.5); Sodium, Blood 136 mmol/L (136-145)
[2020-06-28 04:59] LABS: BAND PERCENT MAN 2 % (0-8); BASOPHILS PERCENT MAN 0 % (0-2); EOSINOPHILS ABSOLUTE MAN 0.38 K/mm3 (0.00-0.68); EOSINOPHILS PERCENT MAN 2 % (0-6); LYMPHOCYTES ABSOLUTE MAN 1.35 K/mm3 (0.84-5.20); LYMPHOCYTES PERCENT MAN 7 % (21-46); METAMYELOCYTE ABSOLUTE MAN 0.57 K/mm3 (0.00-0.00); METAMYELOCYTE PERCENT MAN 3 % (0-0); MONOCYTES ABSOLUTE MAN 0.77 K/mm3 (0.16-1.47); MONOCYTES PERCENT MAN 4 % (4-13); NEUTROPHILS ABSOLUTE MAN 15.63 K/mm3 (1.96-9.15); SEG NEUTROPHILS PERCENT MAN 79 % (41-73); TOTAL CELLS COUNTED 100
[2020-06-28 05:00] LABS: MYELOCYTE ABSOLUTE MAN 0.57 K/mm3 (0.00-0.00); MYELOCYTE PERCENT MAN 3 % (0-0)
--- NOTE | 2020-06-28 06:06 | NUR ---
SHIFT SUMMARY: PT DID NOT SLEEP VERY MUCH LAST NIGHT, SHE WATCHED TV FOR MOST OF THE NIGHT. NO ACUTE CHANGES IN MENTATION. SBP WAS DIFFICULT TO MAINTAIN THROUGHOUT THE NIGHT W/ INTERMITTENT HYPOTENSION. THESE EPISODES WERE RESOLVED W/ POSITION CHANGES & CHANGING CUFF LOCATIONS. PT REMAINED ASYMPTOMATIC THROUGHOUT. SBP NOW 90-110. 1 INCONTINENT DARK BROWN/MAROON STOOL LAST NIGHT. COCCYX DRESSING CHANGED & ALGINATE IN WOUND REPLACED. PT ENCOURAGED TO ASSIST W/ POSITION CHANGES & PARTICIPATE IN CARE, HOWEVER PT REMAINED APATHETIC TO THIS SUGGESTION. PROTONIX INF CONTINUES. 600cc URINE OUTPUT THIS SHIFT. WILL CONTINUE TO MONITOR UNTIL REPORT OFF TO ONCOMING RN.
--- NOTE | 2020-06-28 08:32 | NUR ---
AM NOTE... ASSUMED CARE OF PT APROX 0700, PT IS A&Ox4 AND IS S/P EGD YESTERDAY 06/27. PT'S VS STABLE AT THIS TIME. PT DENIES ANY PAIN AT THIS TIME. HOWEVER C/O OF RUQ PAIN FOR THE PROVIDER. L/S CLEAR ON RA. BT PRESENT AND HYPOACTIVE, ABD IS SLIGHLTY FIRM BUT NONTENDER TO PALP PER THE PT. NO EDEMA WAS NOTED ON ASSESSMENT. PT IS IN NSR IN THE 70'S-90'S. CALL LIGHT IN REACH WILL CONTINUE TO MONITOR.
[2020-06-28 12:21] LABS: Hemoglobin 8.6 g/dL (11.5-16.0)
[2020-06-28 12:40] LABS: Percent Saturation 92.4 % (15.0-50.0)
--- NOTE | 2020-06-28 15:31 | NUR ---
arrived from icu, slid to bed, iv continued, rm air, a+ox3, call light in reach, denied pain, coccyx assessed, redressed
--- NOTE | 2020-06-28 19:11 | NUR ---
call light in reach, diet moved up to [facility] soft from full liquid, saline locked rm air, no complaint of abdmn pain or signs of bleeding, shared bsr with noc nurse and pt
--- NOTE | 2020-06-29 04:50 | NUR ---
SHIFT SUMMARY NO ACUTE CHANGES THIS SHIFT, MEDICATED PER MAR FOR PAIN AT COCCYX, ASSISTED PT W/REPOS T/O THE NIGHT FOR COMFORT, 1.5L BOLUS ADMIN FOR LOW BP'S (80'S), CURRENT BP 128/69, PT SLEPT IN SMALL NAPS DURING THE NIGHT, WATCHING TV & HAD A FEW SNACKS, SLEEPING AT THIS TIME, CALL LIGHT IN REACH, WILL CONT TO MONITOR UNTIL REPORT GIVEN TO DAY RN.
[2020-06-29 05:49] LABS: BASOPHILS ABSOLUTE AUTO 0.07 K/mm3 (0.00-0.23); BASOPHILS PERCENT AUTO 0 % (0-2); EOSINOPHILS ABSOLUTE AUTO 0.18 K/mm3 (0.00-0.68); EOSINOPHILS PERCENT AUTO 1 % (0-6); Hematocrit 23.8 % (33.0-51.0); Hemoglobin 7.3 g/dL (11.5-16.0); IMMATURE GRAN PERCENT AUTO 6 % (0-1); LYMPHOCYTES PERCENT AUTO 9 % (21-46); MONOCYTES ABSOLUTE AUTO 1.14 K/mm3 (0.16-1.47); MONOCYTES PERCENT AUTO 6 % (4-13); Mean Corpuscular HGB 27.7 pg (26.0-34.0); Mean Corpuscular HGB Conc 30.7 g/dL (31.5-36.5); Mean Corpuscular Volume 90 fL (80-100); Mean Platelet Volume 9.3 fL (9.1-12.4); NEUTROPHILS ABSOLUTE AUTO 15.46 K/mm3 (1.96-9.15); NEUTROPHILS PERCENT AUTO 78 % (41-73); NRBC ABSOLUTE 0.09 K/mm3 (0.00-0.02); NRBC Auto 0.5 /100 WBC (0.0-0.2); Platelet Count 295 K/mm3 (150-400); RDW Coefficient Variation 19.4 % (11.7-14.2); RDW Standard Deviation 63.9 fL (35.1-46.3); Red Blood Cell Count 2.64 M/mm3 (3.80-5.20); White Blood Cell Count 19.75 K/mm3 (4.00-11.30)
[2020-06-29 06:07] LABS: BAND PERCENT MAN 3 % (0-8); BASOPHILS PERCENT MAN 0 % (0-2); EOSINOPHILS ABSOLUTE MAN 0.19 K/mm3 (0.00-0.68); EOSINOPHILS PERCENT MAN 1 % (0-6); LYMPHOCYTES ABSOLUTE MAN 0.59 K/mm3 (0.84-5.20); LYMPHOCYTES PERCENT MAN 3 % (21-46); METAMYELOCYTE ABSOLUTE MAN 0.39 K/mm3 (0.00-0.00); METAMYELOCYTE PERCENT MAN 2 % (0-0); MONOCYTES ABSOLUTE MAN 0.39 K/mm3 (0.16-1.47); MONOCYTES PERCENT MAN 2 % (4-13); NEUTROPHILS ABSOLUTE MAN 18.17 K/mm3 (1.96-9.15); SEG NEUTROPHILS PERCENT MAN 89 % (41-73); TOTAL CELLS COUNTED 100
--- NOTE | 2020-06-29 09:25 | NUR ---
low hct noted
--- NOTE | 2020-06-29 09:43 | NUR ---
noc shift reported bloody stool, day was informed, asked for status of next bm, it was brown with no sign of red/blood/black did have mucus, working on finding best response/treatment
[2020-06-29 12:16] LABS: Hematocrit 23.8 % (33.0-51.0); Hemoglobin 7.5 g/dL (11.5-16.0)
--- NOTE | 2020-06-29 19:23 | NUR ---
a+o, call light in reach, saline locked, rm air, no bloody stools noted during shift, dressing on coccyx changed each time it was soiled, talked to family, they expect to take pt home tomorrow, will be able to picket [employer] medications on Wednesday am, people will be there to help her, home health to be arranged, bsr shared with pt and noc shift, pt asked for pain medication and it was given to her
[2020-06-30 09:08] LABS: Hematocrit 26.8 % (33.0-51.0); Hemoglobin 8.2 g/dL (11.5-16.0); Mean Corpuscular HGB 27.9 pg (26.0-34.0); Mean Corpuscular HGB Conc 30.6 g/dL (31.5-36.5); Mean Corpuscular Volume 91 fL (80-100); Mean Platelet Volume 9.4 fL (9.1-12.4); NRBC ABSOLUTE 0.07 K/mm3 (0.00-0.02); NRBC Auto 0.3 /100 WBC (0.0-0.2); Platelet Count 400 K/mm3 (150-400); RDW Coefficient Variation 19.9 % (11.7-14.2); RDW Standard Deviation 63.8 fL (35.1-46.3); Red Blood Cell Count 2.94 M/mm3 (3.80-5.20); White Blood Cell Count 22.17 K/mm3 (4.00-11.30)
[2020-06-30 09:24] LABS: Albumin, Blood 1.5 g/dL (3.4-5.0); Anion Gap 6 mmol/L (6-16); Blood Urea Nitrogen 7 mg/dL (8-24); Bun/Creatinine Ratio 12.5 (12.0-20.0); CO2, Blood 27 mmol/L (21-32); Calcium, Blood 7.6 mg/dL (8.5-10.1); Chloride, Blood 107 mmol/L (98-108); Creatinine, Blood 0.56 mg/dL (0.40-1.00); Glomerular Filtration Rate >60 (60-); Glucose, Blood 95 mg/dL (70-99); Phosphorus, Blood 1.5 mg/dL (2.5-4.9); Potassium, Blood 4.2 mmol/L (3.5-5.5); Sodium, Blood 140 mmol/L (136-145)
[2020-06-30 09:28] LABS: BAND PERCENT MAN 1 % (0-8); BASOPHILS PERCENT MAN 0 % (0-2); EOSINOPHILS ABSOLUTE MAN 0.22 K/mm3 (0.00-0.68); EOSINOPHILS PERCENT MAN 1 % (0-6); LYMPHOCYTES ABSOLUTE MAN 2.43 K/mm3 (0.84-5.20); LYMPHOCYTES PERCENT MAN 11 % (21-46); METAMYELOCYTE ABSOLUTE MAN 0.44 K/mm3 (0.00-0.00); METAMYELOCYTE PERCENT MAN 2 % (0-0); MONOCYTES PERCENT MAN 5 % (4-13); NEUTROPHILS ABSOLUTE MAN 17.95 K/mm3 (1.96-9.15); SEG NEUTROPHILS PERCENT MAN 80 % (41-73); TOTAL CELLS COUNTED 100
[2020-06-30] MEDS ORDERED: VISBIOME 112.51 EACH PO (11:20)
--- NOTE | 2020-06-30 12:42 | NUR ---
cn completed pw for dc, it was then reviewed with pt, daughter was called yesterday and said she would try to get here with wc around 1700, will continue to monitor and treat until dc completed, currently sitting up in bed with abx infusing, stated one iv was leaking so moved to other iv, will continue to monitor and treat, bm with no red or black
--- NOTE | 2020-06-30 17:10 | NUR ---
Discharged:family brought up own wc and escorted pt to waiting car, REVIWED: stay, dc instructions, home medications, follow up appointments and what to do to avoid coming back to ER, removed both IV's with no problems, pt sent home with medication brought to her, a+o, stated she had taken all of her belongings, checked bathroom and drawers
== END 2020-06-30 16:54 | disposition home health service (06) | DRG 871 ==
LOC: ER 16:22 → ICUE 20:13 → ICUW 20:13 → ICUE 20:22 → MEDS 06-28 15:13
PROVIDERS: Emergency Medicine; Internal Medicine; Student in an Organized Health Care Education/Training Program; ADMIT Hospitalist
PROC: 30233N1 Transfusion of Nonautologous Red Blood Cells into Peripheral Vein, Percutaneous Approach (ICD-10-PCS; principal; 2020-06-26)
PROC: 0DJ08ZZ Inspection of Upper Intestinal Tract, Via Natural or Artificial Opening Endoscopic (ICD-10-PCS; 2020-06-27)
PROC: 3E02340 Introduction of Influenza Vaccine into Muscle, Percutaneous Approach (ICD-10-PCS; 2020-06-27)
DX: A41.9 Sepsis, unspecified organism (principal); R57.8 Other shock; K26.4 Chronic or unspecified duodenal ulcer with hemorrhage; K25.4 Chronic or unspecified gastric ulcer with hemorrhage; K20.91 Esophagitis, unspecified with bleeding; E87.1 Hypo-osmolality and hyponatremia; K21.9 Gastro-esophageal reflux disease without esophagitis; E87.6 Hypokalemia; F17.210 Nicotine dependence, cigarettes, uncomplicated; D47.3 Essential (hemorrhagic) thrombocythemia; E16.2 Hypoglycemia, unspecified; Z23 Encounter for immunization
CPT/HCPCS: 0241U; 36415; 36430; 51702; 71045; 80048; 80053; 80069; 81001; 82728; 82947; 83540; 83550; 83605; 83735; 85014; 85018; 85025; 85610; 85730; 86850; 86900; 86901; 86923; 87040; 87086; 93005; 93010; 96365; 96367; 96375; 97161; 99285-25; A9270; C9113; G0008; J0171; J0696; J1430; J2250; J2405; J2704; J2916; J3010; J3480; J7030; J7050; P9016; Q2038

== ENCOUNTER 2021-11-17 10:00 | Inpatient (IN) | payer OTHER ==
[~2021-11-17] VITALS: Ht 167.6 cm; Wt 92.5 kg
[~2021-11-17 10:00] MED LIST changes: +VISBIOME 112.51 EACH PO
[2021-11-17 12:47] LABS: International Normalized Ratio 1.26
[2021-11-17 13:18] LABS: Albumin, Blood 1.5 g/dL (3.4-5.0); Albumin/Globulin Ratio 0.5 (0.8-1.8); Bilirubin, Total 0.4 mg/dL (0.1-1.0); Bun/Creatinine Ratio 40.3 (12.0-20.0); Calcium, Blood 6.6 mg/dL (8.5-10.1); Creatinine, Blood 3.67 mg/dL (0.40-1.00); Globulin, Blood 3.2 g/dL (2.2-4.0); Magnesium, Blood 3.3 mg/dL (1.6-2.4); Phosphorus, Blood 6.9 mg/dL (2.5-4.9); Total Protein, Blood 4.7 g/dL (6.4-8.2)
[2021-11-17 14:24] LABS: Mean Corpuscular HGB 21.1 pg (26.0-34.0); Mean Corpuscular Volume 70 fL (80-100); Mean Platelet Volume 8.8 fL (9.1-12.4); NRBC ABSOLUTE 0.75 K/mm3 (0.00-0.02); NRBC Auto 2.3 /100 WBC (0.0-0.2); Platelet Count 627 K/mm3 (150-400); RDW Standard Deviation 50.9 fL (35.1-46.3); Red Blood Cell Count 1.42 M/mm3 (3.80-5.20); White Blood Cell Count 32.19 K/mm3 (4.00-11.30)
[2021-11-17 15:05] LABS: Source, Urine Foley catheter
[2021-11-17 15:09] LABS: Appearance, Urine Cloudy (Clear); Blood, Urine 1+ (Neg); Color, Urine Yellow (P-Yellow); Glucose Qualitative, Urine Neg (Neg); Ketones, Urine Neg (Neg); Leukocyte Esterase, Urine 1+ (Neg); Nitrite, Urine Neg (Neg); Protein, Urine 2+ (Neg); Specific Gravity, Urine 1.015 (1.003-1.022); Urobilinogen, Urine NORM (Normal)
[2021-11-17 15:20] LABS: Bilirubin, Urine 1+ (Neg)
[2021-11-17 15:21] LABS: Bacteria Many /hpf; Hyaline Casts 0-2 /lpf (0-2); Red Blood Cells, Urine 0-2 /hpf (0-2); Squamous Epithelial Cells Few /hpf (Few); WBC Cast 0-2 /lpf (0); White Blood Cells, Urine 25-50 /hpf (0-5)
[2021-11-17 16:12] LABS: BASOPHILS PERCENT MAN 0 % (0-2); EOSINOPHILS PERCENT MAN 0 % (0-6); LYMPHOCYTES % ATYPICAL MANUAL 2 % (0-0); LYMPHOCYTES ABSOLUTE MAN 0.64 K/mm3 (0.84-5.20); MONOCYTES ABSOLUTE MAN 0.64 K/mm3 (0.16-1.47); MONOCYTES PERCENT MAN 2 % (4-13); SEG NEUTROPHILS PERCENT MAN 96 % (41-73); TOTAL CELLS COUNTED 100
[2021-11-17 16:20] LABS: Base Excess Venous -3.8 mmol/L; Bicarbonate Venous 21.5 mmol/L (24.0-30.0); PCO2 Venous 40.4 mmHg (38-42); PO2 Venous 52.4 mmHg (38-42); pH Blood Venous 7.34 (7.34-7.37)
--- NOTE | 2021-11-17 19:14 | NUR ---
PT ARRIVED FROM ER TO ICU AT 1750, ONE UNIT OF BLOOD WAS INFUSING, 7MCG OF LEVO AND PROTONIX DRIP INFUSING. THIRD AND FINAL UNIT STARTED, LEVO ON SB. TEMP 97.0. WOUND CARE COMPLETED WITH ALGINATE STRIP PACKED INTO 4CM TUNNELED SACRAL WOUND, ALGINATE PADS PLACED ON ESCHAR ON BUTTOCK, WET TO DRY OVER REMAINDER OF WOUND. PHOTOS TAKEN AND PLACED IN CHART. JETT DRAINING MILKY YELLOW FLUID AND EMPTIED. LUNGS CLEAR AND DIMINISHED. PT A/OX3-SELF AND PLACE, REORIENTED TO DAY
[2021-11-17 20:18] LABS: Hematocrit 22.5 % (33.0-51.0); Hemoglobin 7.3 g/dL (11.5-16.0)
[2021-11-17 20:44] LABS: Albumin, Blood 1.7 g/dL (3.4-5.0); Albumin/Globulin Ratio 0.4 (0.8-1.8); Creatinine, Blood 3.07 mg/dL (0.40-1.00); Globulin, Blood 3.8 g/dL (2.2-4.0); Potassium, Blood 3.5 mmol/L (3.5-5.5); Total Protein, Blood 5.5 g/dL (6.4-8.2)
--- NOTE | 2021-11-17 23:29 | NUR ---
ASSUMED CARE AT 1900 PATIENT IS ALERT AND ORIENTED X4, SLOW TO REPSOND TO QUESTIONS. AGITATED AND WITHDRAWN NOT WANTING TO ANSWER QUESTIONS. ABLE TO MOVE ALL EXTREMETIES, APPEARS WEAK. 02 SATS 100% ON RA, LS CLEAR, DENIES SOB. HR NSR AT 70s, LEVO ON AT START OF SHIFT, PUT ON SB AT 2130 AND BP WITH MAP >65. DENIES CP PRESSURE. PATIENT DENIES ABDOMINAL PAIN, HAD LARGE AMOUNT OF GREEN EMESIS ONCE, MEDICATED PER EMAR FOR NAUSEA. JETT PATENT AND DRAINING TO GRAVITY. DRESSING TO BUTTOCKS C/D/I, PHOTO IN CHART. PATIENT REPOSITIONED AND LINEN CHANGED. CALLED HOSPITALIST FOR CMP AFTER BLOOD WAS TRANSFUSED AND ELECTROLYTES REPLACE. SPOKE WITH ROBERTA ABOUT POSSIBLE CONSULTS, NO FURTHER ORDERS AT THIS TIME. SPOKE WITH PATIENTS MOM WITH PATIENT PERMISSION, CONCERNS ABOUT PATIENT BEING EVICTED FROM HER HOME AND HAVING NOWHERE TO GO AND ALSO NEEDING MORE CARE.
[2021-11-18 00:52] LABS: Hematocrit 22.8 % (33.0-51.0); Hemoglobin 7.5 g/dL (11.5-16.0)
[2021-11-18 05:14] LABS: BASOPHILS ABSOLUTE AUTO 0.04 K/mm3 (0.00-0.23); BASOPHILS PERCENT AUTO 0 % (0-2); EOSINOPHILS PERCENT AUTO 0 % (0-6); Hematocrit 21.6 % (33.0-51.0); Hemoglobin 7.2 g/dL (11.5-16.0); IMMATURE GRAN ABSOLUTE AUTO 0.32 K/mm3 (0.00-0.10); IMMATURE GRAN PERCENT AUTO 1 % (0-1); LYMPHOCYTES ABSOLUTE AUTO 0.52 K/mm3 (0.84-5.20); LYMPHOCYTES PERCENT AUTO 2 % (21-46); MONOCYTES ABSOLUTE AUTO 0.65 K/mm3 (0.16-1.47); MONOCYTES PERCENT AUTO 2 % (4-13); Mean Corpuscular HGB 26.8 pg (26.0-34.0); Mean Corpuscular HGB Conc 33.3 g/dL (31.5-36.5); Mean Platelet Volume 8.5 fL (9.1-12.4); NEUTROPHILS ABSOLUTE AUTO 29.85 K/mm3 (1.96-9.15); NEUTROPHILS PERCENT AUTO 95 % (41-73); NRBC ABSOLUTE 0.64 K/mm3 (0.00-0.02); Platelet Count 446 K/mm3 (150-400); RDW Coefficient Variation 21.2 % (11.7-14.2); RDW Standard Deviation 61.9 fL (35.1-46.3); Red Blood Cell Count 2.69 M/mm3 (3.80-5.20); White Blood Cell Count 31.38 K/mm3 (4.00-11.30)
[2021-11-18 05:16] LABS: Mean Corpuscular Volume 80 fL (80-100)
[2021-11-18 05:38] LABS: Albumin, Blood 1.6 g/dL (3.4-5.0); Albumin/Globulin Ratio 0.5 (0.8-1.8); Bun/Creatinine Ratio 45.5 (12.0-20.0); Calcium, Blood 7.4 mg/dL (8.5-10.1); Creatinine, Blood 2.44 mg/dL (0.40-1.00); Globulin, Blood 3.5 g/dL (2.2-4.0); Magnesium, Blood 3.3 mg/dL (1.6-2.4); Total Protein, Blood 5.1 g/dL (6.4-8.2)
[2021-11-18 06:21] LABS: International Normalized Ratio 1.16; Prothrombin Time Results 12.1 Sec (9.7-11.5)
--- NOTE | 2021-11-18 06:48 | NUR ---
UNABLE TO DRAW BLOOD FROM CENTRAL LINE, REPEAT X-RAY DONE TO VERIFY PLACEMENT AND THAT LINE WAS PATENT, DR. BRUCE OK WITH CONTINUED USE OF LINE.
--- NOTE | 2021-11-18 07:11 | NUR ---
SHIFT SUMMARY PATIENT REMAINS ALERT AND ORIENTED X4, WITHDRAWN. FOLLOWS COMMANDS. 02 SATS 99% ON RA, DENIES SOB. HR SR AT 70s, BP STABLE WITH LEVO OFF. JETT PATENT AND DRAINING TO GRAVITY. NO BM THIS SHIFT. NO MORE NAUSEA/VOMITING. REPLACING POTASSIUM. REPOSITIONED Q2 HOURS. CALL LIGHT IN REACH.
--- NOTE | 2021-11-18 08:00 | NUR ---
PT AWAKE AND ALERT. ORIENTED TO SELF AND SURROUNDINGS, BUT FORGETFUL. PT REPORTS 8/10 BACK AND BUTTOCK PAIN. PT MOANING AND CRYING OUT WITH ORAL CARE. ECG SHOWS SR. MAP TRENDING 70'S. LUNGS DIMINISHED IN THE BASES, BUT MAINTAINS SATS>90% ON RA. PT DENIES NAUSEA OR ABDOMINAL TENDERNESS. BT'S HYPO X 4. PT REFUSING CATH CARE AND REPOSITIONING UNTIL SHE CAN HAVE SOME PAIN MEDICATION. PT CURRENTLY ONLY HAS TYLENOL FOR PAIN. JETT TO BSD WITH CLOUDY, YELLOW URINE TO BSD. LIJ POSITIONAL AND NOT ABLE TO WITHDRAW BLOOD-WILL CHANGE DRESSING. KCL REPLETION INFUSING. PT SKIN IS EXTREMELY PALE. HER MOUTH HAS SORES INSIDE AND OUT. PT HAS SCRATCHES TO HER MID BACK AREA. SKIN FOLDS ARE RED. THERE ARE WOUNDS TO THE INNER THIGHS. THE WOUNDS TO THE BUTTOCKS AND COCCYX ARE COVERED WITH ALGINATE AND ABD PADS. WILL ADDRESS WOUND CARE WHEN PAIN MEDS AVAILABLE. MICHELLE, PT MOTHER UPDATED TO CURRENT STATUS. PT MOTHER VEBALIZED THAT SHE WOULD LIKE PT TO BE "COMFORT CARE." DR. NG UPDATED AND PROVIDED WITH MICHELLE' PHONE NUMBER.
--- NOTE | 2021-11-18 08:45 | NUR ---
DR. WEBB HERE TO SEE PT. FULL UPDATE GIVEN, THEN DRESSING REMOVED FOR MD TO EXAMINE. WOUND CLEANSED WITH WOUND CLEANSER, PATTED DRY, AND COVERED WITH ALGINATE/ABD PADS. DURING WOUND CARE, PT SCREAMING "STOP! IT HURTS SO BAD!" PT ATTEMPTING TO TURN TO HER BACK. RN EXPLAINED TO PT THE SEVERITY OF HER WOUNDS AND THE CONSEQUENCES OF LEAVING THE WOUNDS UNTREATED. PT MADE AWARE THAT EVEN WITH TREATMENT, THERE IS THE POTENTIAL FOR HER DEMISE DUE TO THE SEVERITY. PT MADE AWARE THAT SHE CAN CHOOSE TO REFUSE WOUND AND OTHER TREATMENTS-PT AWARE THAT COMFORT CARE IS AN OPTION AT THIS POINT. AFTER THE DISCUSSION, PT WAS MORE COOPERATIVE WITH CARE. REPOSITIONED TO COMFORT ON RIGHT SIDE. PT AGREES TO DO HER BEST TO STAY ON HER SIDE AND OFF OF HER BACK/BUTTOCKS. PT DAUGHTER AND SPOUSE AT BEDSIDE-BRIEF UPDATE GIVEN. AWAITING PALLIATIVE CARE CONSULT AND THE ARRIVAL OF PT MOTHER, MICHELLE.
[2021-11-18 09:09] LABS: Hematocrit 22.9 % (33.0-51.0); Hemoglobin 7.5 g/dL (11.5-16.0)
--- NOTE | 2021-11-18 11:30 | NUR ---
PT REFUSED ORAL CARE, BUT DID ALLOW FOR POSITION CHANGE AFTER MEDICATED WITH FENTANYL-SEE EMAR. PT FAMILY AT BEDSIDE, BUT HER INTERACTION WITH THEM IS LIMITED. PT SPOUSE STATES THAT HE HAS NOT BEEN ABLE TO GET PT TO EAT FOR SEVERAL WEEKS. PT SPOUSE STATES THAT HE HAD PLEEDED WITH HER TO SEEK MEDICAL ATTENTION, BUT SHE WOULD NOT DO SO BECAUSE SHE IS "TOO STUBBORN!" PT DAUGHTER LEO STATES THAT THE FAMILY IS GOING TO MEET AND DISCUSS PT PLAN OF CARE WHEN HER GRANDMOTHER ARRIVES TODAY.
--- NOTE | 2021-11-18 14:47 | NUR ---
DR. AVELAR NOTIFIED OF FAMILY DECISION AND REQUEST TO MAKE PT COMFORT CARE STATUS. MOI ROY FROM PALLIATIVE CARE UPDATED WELL.
--- NOTE | 2021-11-18 15:30 | NUR ---
AFTER A LONG DISCUSS AMONGNST PT FAMILY, DR. FREEMAN, AND PALLIATIVE CARE RN, PT MADE DNR/DNI STATUS-NOT COMFORT CARE AT THIS POINT. ACCORDING TO DR. FREEMAN, PT STATED TO HER THIS AM THAT SHE "WANTS TO FIGHT." IT IS UNCLEAR WHETHER PT IS COMPETENT TO MAKE DECISIONS REGARDING HER HEALTHCARE AT THIS POINT. THE PLAN IS TO EVALUATE PT MENTATION/COMPETENCE ON A DAILY BASIS AND TO RE-EVALUATE HER PLAN OF CARE DAILY WELL. H&H AND VANCO LEVEL DRAWN. BLOSSOM INFUSING MEDICATIONS WITHOUT DIFFICULTY, BUT IT STILL WON'T DRAW BLOOD.
--- NOTE | 2021-11-18 15:45 | NUR ---
PT REPORTS 12/14 LOW BACK/BUTTOCK PAIN-MED WITH FENTANYL 50 MCG IVP X 1. ORAL CARE COMPLETED. PT CRYING OUT AND SHAKING HER HEAD BACK AND FORTH. PT DID FOLLOW COMMANDS TO STICK OUT HER TONGUE AND WHITE PATCHES NOTED. DR. AVELAR CONTACTED AND NOTIFIED OF THE APPEARANCE OF PT MOUTH AND THE FACT THAT PT SKIN FOLDS HAVE YEAST-LIKE RASH APPEARANCE. ORDER OBTAINED FOR NYSTATIN SWISH/SWALLOW AND POWDER. ALSO, DR. AVELAR NOTIFIED THAT CBG TRENDING 70'S-D51/2 NS TO CONTINUE AND NS DISCONTINUED. CONSTANTINO RN TO ASSUME CARE-REPORT GIVEN.
[2021-11-18 15:46] LABS: Hematocrit 20.7 % (33.0-51.0); Hemoglobin 6.9 g/dL (11.5-16.0)
[2021-11-18 16:05] LABS: Vancomycin, Trough 12.2 ug/mL (5.0-10.0)
--- NOTE | 2021-11-18 16:10 | NUR ---
ASSUMED CARE OF PT FROM MOI CABRERA. PT ALERT TO VERBAL STIMULATION, WITHDRAWN, VERY PAINFUL WITH ANY TYPE OF CARE. D5@100 ML/HR, PROTONIX GTT @ 10 ML/HR. LEVOPHED REMAINS ON STANDBY. VSS AT THIS TIME.
--- NOTE | 2021-11-18 16:35 | NUR ---
Met with pt and extended family today, including pt's , sister, mom, son and daughter. The patient is in agreement with family that she would not want to be intubated or have CPR performed on her at this time. Pt has unstageable, non-healing wound. Surgical consult done by Dr. Asencio, and given the pt's condition as well as the condition of the wound itself, pt is not a surgical candidate at this time. She was diagnosed with sepsis with hypotension, and arrived via EMS with confusion, weakness, as well as bugs and maggots on her skin. She also has guaiac positive stools and related anemia. The family have stated they would prefer "comfort care" for the patient, but the patient has indicated to Dr. Radford she wants to "keep fighting". Pt has a long history of non-compliance with care, but this does not change her ability to make her own decisions for the time being. Palliative Care will continue with therapeutic visits, with both family and pt.
[2021-11-18 20:02] LABS: Hematocrit 20.2 % (33.0-51.0); Hemoglobin 6.5 g/dL (11.5-16.0)
--- NOTE | 2021-11-18 21:26 | NUR ---
SHIFT ASSESSMENT ASSUMED CARE OF PT @ 1900, REPORT RECEIVED FROM MOI MEEKS. PT ALERT AND ORIENTED, LAYING ON HER R SIDE, OFF OF COCCYX. PT ANSWERING QUESTION BUT EXTREMELY SLOW TO RESPOND AND OFTEN FORGETS WHAT WAS ASKED. PT VERY WITHDRAWN DURING INTERACTIONS. CURRENTLY C/O MODERATE PAIN IN HER BACK BUT DOES NOT REQUEST MEDS. DENIES ABD PAIN, NO SIGNS OF BLEEDING AT THIS TIME. BACKSIDE WOUNDS COVERED WITH ALGINATE AND ABD PADS, DRESSINGS REMAIN C/D/I. TEMP PROBE JETT CATH PATENT, DRAINING YELLOW URINE. NO BM. WILL MONITOR CLOSELY.
[2021-11-19 01:39] LABS: Hematocrit 25.4 % (33.0-51.0); Hemoglobin 8.5 g/dL (11.5-16.0)
[2021-11-19 06:03] LABS: Alanine Aminotransfer (ALT/SGP 9 U/L (12-78); Albumin, Blood 1.7 g/dL (3.4-5.0); Albumin/Globulin Ratio 0.6 (0.8-1.8); Alk Phos 199 U/L (50-136); Anion Gap 8 mmol/L (6-16); Aspartate Aminotrans (AST/SGOT 16 U/L (12-37); Bilirubin, Total 0.8 mg/dL (0.1-1.0); Blood Urea Nitrogen 50 mg/dL (8-24); Bun/Creatinine Ratio 50.9 (12.0-20.0); CO2, Blood 22 mmol/L (21-32); Calcium, Blood 7.4 mg/dL (8.5-10.1); Chloride, Blood 109 mmol/L (98-108); Creatinine, Blood 0.98 mg/dL (0.40-1.00); Globulin, Blood 2.8 g/dL (2.2-4.0); Glomerular Filtration Rate 71 (60-); Glucose, Blood 71 mg/dL (70-99); Potassium, Blood 3.1 mmol/L (3.5-5.5); Total Protein, Blood 4.5 g/dL (6.4-8.2); Vancomycin, Random 22.5 ug/mL
[2021-11-19 06:04] LABS: Sodium, Blood 139 mmol/L (136-145)
[2021-11-19 06:40] LABS: BASOPHILS ABSOLUTE AUTO 0.02 K/mm3 (0.00-0.23); BASOPHILS PERCENT AUTO 0 % (0-2); EOSINOPHILS ABSOLUTE AUTO 0.01 K/mm3 (0.00-0.68); EOSINOPHILS PERCENT AUTO 0 % (0-6); Hematocrit 24.9 % (33.0-51.0); Hemoglobin 8.4 g/dL (11.5-16.0); IMMATURE GRAN ABSOLUTE AUTO 0.09 K/mm3 (0.00-0.10); IMMATURE GRAN PERCENT AUTO 1 % (0-1); LYMPHOCYTES ABSOLUTE AUTO 0.74 K/mm3 (0.84-5.20); LYMPHOCYTES PERCENT AUTO 4 % (21-46); MONOCYTES ABSOLUTE AUTO 0.71 K/mm3 (0.16-1.47); MONOCYTES PERCENT AUTO 4 % (4-13); Mean Corpuscular HGB 27.7 pg (26.0-34.0); Mean Corpuscular HGB Conc 33.7 g/dL (31.5-36.5); Mean Corpuscular Volume 82 fL (80-100); Mean Platelet Volume 8.1 fL (9.1-12.4); NEUTROPHILS ABSOLUTE AUTO 16.93 K/mm3 (1.96-9.15); NEUTROPHILS PERCENT AUTO 92 % (41-73); NRBC ABSOLUTE 0.25 K/mm3 (0.00-0.02); NRBC Auto 1.4 /100 WBC (0.0-0.2); Platelet Count 245 K/mm3 (150-400); RDW Coefficient Variation 19.1 % (11.7-14.2); RDW Standard Deviation 57.3 fL (35.1-46.3); Red Blood Cell Count 3.03 M/mm3 (3.80-5.20)
--- NOTE | 2021-11-19 06:41 | NUR ---
SHIFT SUMMARY PT REMAINS ALERT AND ORIENTED. OCCASIONALLY ASSISTING WITH TURNS. REPEAT H&H LAST NIGHT DROPPING, TRANSFUSED 2 UNITS PRBC'S, AWAITING POST TRANSFUSION H&H. CL INITIALLY WORKING FOR BLOOD DRAW BUT THIS AM UNABLE TO DRAW BLOOD. ALSO NOTICED LEAKING FROM CL SITE, FLUIDS STOPPED AND MOVED TO PERIPHERAL IV. DISCUSSED CL WITH CHARGE, REMAINS IN PLACE AT THIS TIME. POWERGLIDE IV ALSO ESTABLISHED, DRAWS AND FLUSHES WELL. NO BM LAST NIGHT. NO OTHER ACUTE CHANGES.
[2021-11-19 12:17] LABS: Magnesium, Blood 2.5 mg/dL (1.6-2.4)
[2021-11-19 12:18] LABS: Potassium, Blood 3.4 mmol/L (3.5-5.5)
[2021-11-19 13:07] LABS: Hematocrit 23.9 % (33.0-51.0); Hemoglobin 8.1 g/dL (11.5-16.0); IMMATURE RETIC FRACTION 33.5 % (2.3-16.0); RETIC HGB EQUIVALENT 21.4 pg (28.20-36.60); RETICULOCYTE COUNT PERCENT 1.49 % (0.50-2.50)
[2021-11-19 13:24] LABS: Percent Saturation 15.3 % (15.0-50.0)
[2021-11-19 14:35] LABS: Bun/Creatinine Ratio 46.7 (12.0-20.0); Calcium, Blood 7.5 mg/dL (8.5-10.1); Creatinine, Blood 0.81 mg/dL (0.40-1.00); Potassium, Blood 3.4 mmol/L (3.5-5.5)
--- NOTE | 2021-11-19 16:03 | NUR ---
Spiritual Care Visit. At the recommendation of care manangement. Pt. is resting and is mostly non-responsive. Pts. mother is present and welcomes my visit. Facilitate a brief life review highlighting Pts. health struggles as well as her who is also admitted to the hospital. Though theraputic listening and a calming presence, Mother displays evidence of hope and confidence in the Pts. stephen. Pts. mother is very pleasant. [place] with Pt. Do a "Things We care to Know" survey with the Pts. mother about the Pt. Pts. mother verbalizes grtatitude for the prayer and spiritual care visit. "Things We Care to Know" is a spiritual care teachers assistant program designed to personalize the Pt./Staff relationship; particualry for the Pt. who can't always speak for themselves.
--- NOTE | 2021-11-19 16:52 | NUR ---
Wound assessment and photo in hard chart. Orders in [facility]. Would recommend reassessment for surgical debridement.
--- NOTE | 2021-11-19 18:04 | NUR ---
MAKES NEEDS KNOWN, VERY FLAT EFFECT, ANSWERS CONCRETE QUESTION BUT IS UNABLE TO ANSWER OR FOLLOW SIMPLE DIRECTIONS, SATS 97% ON 2L O2, LS DIMINISHED, SBP 80-90, STARTED MIDODRINE TODAY, DENIES CP, MAP CONTINUALLY >60. POOR APPETITE, REFUSES FOOD, SWALLOWS MEDICATIONS WELL. CONTACT ACID PLANT OPERATOR HELPER CHANEGD DRESSING TODAY, SHE IS WRITING ORDERS FOR DAILY DRSG CHANGES, PATIENT TOLERATED WITH DISCOMFORT. WILL RELAY TO PM RN, MOHINDER
[2021-11-20 01:01] LABS: BASOPHILS ABSOLUTE AUTO 0.02 K/mm3 (0.00-0.23); BASOPHILS PERCENT AUTO 0 % (0-2); EOSINOPHILS ABSOLUTE AUTO 0.01 K/mm3 (0.00-0.68); EOSINOPHILS PERCENT AUTO 0 % (0-6); Hematocrit 25.4 % (33.0-51.0); Hemoglobin 8.4 g/dL (11.5-16.0); IMMATURE GRAN ABSOLUTE AUTO 0.16 K/mm3 (0.00-0.10); IMMATURE GRAN PERCENT AUTO 1 % (0-1); LYMPHOCYTES ABSOLUTE AUTO 0.93 K/mm3 (0.84-5.20); LYMPHOCYTES PERCENT AUTO 5 % (21-46); MONOCYTES ABSOLUTE AUTO 0.66 K/mm3 (0.16-1.47); MONOCYTES PERCENT AUTO 4 % (4-13); Mean Corpuscular HGB 27.6 pg (26.0-34.0); Mean Corpuscular HGB Conc 33.1 g/dL (31.5-36.5); Mean Corpuscular Volume 84 fL (80-100); Mean Platelet Volume 8.6 fL (9.1-12.4); NEUTROPHILS ABSOLUTE AUTO 16.56 K/mm3 (1.96-9.15); NEUTROPHILS PERCENT AUTO 90 % (41-73); NRBC ABSOLUTE 0.27 K/mm3 (0.00-0.02); NRBC Auto 1.5 /100 WBC (0.0-0.2); Platelet Count 189 K/mm3 (150-400); RDW Coefficient Variation 19.3 % (11.7-14.2); Red Blood Cell Count 3.04 M/mm3 (3.80-5.20); White Blood Cell Count 18.34 K/mm3 (4.00-11.30)
[2021-11-20 01:19] LABS: Alanine Aminotransfer (ALT/SGP 8 U/L (12-78); Albumin, Blood 1.9 g/dL (3.4-5.0); Albumin/Globulin Ratio 0.6 (0.8-1.8); Alk Phos 168 U/L (50-136); Anion Gap 6 mmol/L (6-16); Aspartate Aminotrans (AST/SGOT 8 U/L (12-37); Bilirubin, Total 0.7 mg/dL (0.1-1.0); Blood Urea Nitrogen 25 mg/dL (8-24); Bun/Creatinine Ratio 37.4 (12.0-20.0); CO2, Blood 25 mmol/L (21-32); Calcium, Blood 7.7 mg/dL (8.5-10.1); Chloride, Blood 112 mmol/L (98-108); Creatinine, Blood 0.67 mg/dL (0.40-1.00); Glomerular Filtration Rate 107 (60-); Glucose, Blood 111 mg/dL (70-99); Potassium, Blood 3.9 mmol/L (3.5-5.5); Sodium, Blood 143 mmol/L (136-145); Total Protein, Blood 4.9 g/dL (6.4-8.2); Vancomycin, Random 13.4 ug/mL
--- NOTE | 2021-11-20 07:18 | NUR ---
SHIFT SUMMARY: PATIENT DENIES SOB, CHEST PAIN, N/V. PATIENT SYSTOLIC 80-90S, MAP >65 T/O SHIFT. TMAX 100.1 - MEDICATED PER EMAR. PATIENT DEMONSTRATED INCREASED WOB AND INCREASED O2 NEEDS TOWARDS END OF SHIFT, BUT DENIES SOB OR DISCOMFORT. PROTONIX DRIP RUNNING PER EMAR. REPORT GIVEN TO DAY SHIFT RN.
[2021-11-20 13:31] LABS: Influenza A, PCR NEGATIVE (NEGATIVE); Influenza B, PCR NEGATIVE (NEGATIVE); Resp Syncytial Virus, PCR NEGATIVE (NEGATIVE); SARS-Cov-2 (COVID-19) PCR, MMC NEGATIVE (NEGATIVE)
[2021-11-20 13:55] LABS: Hematocrit 28.3 % (33.0-51.0); Hemoglobin 9.3 g/dL (11.5-16.0)
--- NOTE | 2021-11-20 16:27 | NUR ---
PATIENT IS ALERT AND ORIENTED TO FAMILY, PLACE AND SELF. SHE IS UNSURE OF WHY SHE IS HERE. C/O PAIN DURING WOUND CARE, MEDICATED PER EMAR. JETT IN PLACE AND DRAINING. NS AT TKO. ON 2L O2 VIA NC. PT AND OT ATTEMPTED TO WORK WITH THE PATIENT TODAY BUT THE PATIENT REFUSED. PATIENT HAS BEEN NPO SINCE AFTER BREAKFAST EXCEPT FOR SOME MEDS. PLAN IS FOR UPPER ENOSCOPY THIS EVENING. REPOSITIONED WITH PILLOWS. WILL CONTINUE TO MONITOR
--- NOTE | 2021-11-20 18:21 | NUR ---
PATIENT LEFT FOR PROCEDURE AT 1814
--- NOTE | 2021-11-20 19:12 | NUR ---
11/20/211911 Daniel Centeno History, Chart, Medications and Allergies reviewed before start of procedure.MONITOR INTACT WITH CONTINUOUS PULSE OXIMETRY AND INTERMITTENT BP.3-LEAD EKG REVIEWED WITH PHYSICIAN PRIOR TO START OF PROCEDURE.O2 VIA POM INTACT THROUGHOUT SEDATION/PROCEDURE. See Anesthesia record.
[2021-11-21 02:34] LABS: BASOPHILS ABSOLUTE AUTO 0.02 K/mm3 (0.00-0.23); BASOPHILS PERCENT AUTO 0 % (0-2); EOSINOPHILS ABSOLUTE AUTO 0.02 K/mm3 (0.00-0.68); EOSINOPHILS PERCENT AUTO 0 % (0-6); Hematocrit 27.6 % (33.0-51.0); IMMATURE GRAN ABSOLUTE AUTO 0.08 K/mm3 (0.00-0.10); IMMATURE GRAN PERCENT AUTO 1 % (0-1); LYMPHOCYTES ABSOLUTE AUTO 1.07 K/mm3 (0.84-5.20); LYMPHOCYTES PERCENT AUTO 6 % (21-46); MONOCYTES ABSOLUTE AUTO 0.69 K/mm3 (0.16-1.47); MONOCYTES PERCENT AUTO 4 % (4-13); Mean Corpuscular HGB 27.9 pg (26.0-34.0); Mean Corpuscular HGB Conc 32.6 g/dL (31.5-36.5); Mean Corpuscular Volume 85 fL (80-100); Mean Platelet Volume 8.6 fL (9.1-12.4); NEUTROPHILS ABSOLUTE AUTO 15.02 K/mm3 (1.96-9.15); NEUTROPHILS PERCENT AUTO 89 % (41-73); NRBC ABSOLUTE 0.07 K/mm3 (0.00-0.02); NRBC Auto 0.4 /100 WBC (0.0-0.2); Platelet Count 117 K/mm3 (150-400); RDW Coefficient Variation 20.9 % (11.7-14.2); RDW Standard Deviation 63.9 fL (35.1-46.3); Red Blood Cell Count 3.23 M/mm3 (3.80-5.20)
[2021-11-21 02:56] LABS: Albumin, Blood 1.6 g/dL (3.4-5.0); Albumin/Globulin Ratio 0.5 (0.8-1.8); Bilirubin, Total 0.6 mg/dL (0.1-1.0); Bun/Creatinine Ratio 26.1 (12.0-20.0); Calcium, Blood 7.4 mg/dL (8.5-10.1); Creatinine, Blood 0.54 mg/dL (0.40-1.00); Potassium, Blood 3.7 mmol/L (3.5-5.5); Total Protein, Blood 4.6 g/dL (6.4-8.2)
--- NOTE | 2021-11-21 04:17 | NUR ---
PATIENT RECIEVED A TRANSFER FROM PCU AROUND 2200. PATIENT ASSESSED AND FOUND TO BE LYING IN STOOL. PATIENT ATTEMPTED TO REFUSE TO BE CLEANED. EXPLAINED TO PATIENT THAT THERE WAS NO WAY I WAS LEAVING HER LYING IN STOOL. PATIENT WITH LARGE DRESSING TO BILAT BUTTOCK, REMOVED AND REPLACED DUE TO STOOL. SEE CHART PICTURES FOR WOUNDS. POWERGLIDE IN DIONNE DOES NOT DRAW BLOOD. PATIENT RECIEVING IV ANTIBX OVERNIGHT. ABLE TO MAKE HER NEEDS KNOWN. NO ACUTE EVENTS OVERNIGHT.
[2021-11-21 13:09] LABS: Hematocrit 29.8 % (33.0-51.0)
--- NOTE | 2021-11-21 17:27 | NUR ---
SHIFT SUMMARY PT A&O X 4. ROLLED PT SIDE TO SIDE & PROPPED WITH PILLOWS THROUGHOUT SHIFT. THIS AFTERNOON SHE HAD A LARGE LOOSE STOOL. GAVE A BED BATH AND CHANGED THE DRESSING ON HER WOUND. BLACK ESCHCAR NOTED IN BED OF WOUND WITH EXCORIATED SKIN ALL AROUND WOUND & INTO ISAAC AREA & INSIDE THIGHS. SHE C/O PAIN WITH ALL CARE DURING BED BATH AND WITH DRESSING CHANGE. MEDICATED WITH FENTANYL. (SEE EMAR) BG'S RANGING 70-80's. SHE IS ON A FULL LIQ DIET. APPETITE MARGINAL. VSS.
--- NOTE | 2021-11-21 20:02 | NUR ---
NURSE NOTE: NOTIFIED TEO ZACARIAS PATIENTS HR SUSTAINING 130'S BPM SINUS TACHYCARDIA. PATIENT IS TACHYPNEIC RESPIRATORY RATE CURRENTLY 35 AND DESATING INTO 80% O2. PATIENT ON O2 NASAL CANNULA INCREASED FROM 4L TO 6L. PATIENT NOT HAVING ANY PAIN AT THIS TIME DOES NOT REPORT SYMPTOMS OTHER THAN SHORTNESS OF BREATH. BLOOD PRESSURE LOW AT 93/69, INFORMED MD THAT PATIENT HAS BEEN TAKING MIDODRINE DUE TO TRENDING LOW BLOOD PRESSURE SYSTOLIC RANGE STAYING 80'S -90'S. THIS NURSE REQUESTED FOR MEDICATION ADMINISTRATION TO ADDRESS ELEVATED HEART RATE THAT WOULD NOT DROP BLOOD PRESSURE. GAVE TELEPHONE ORDER FOR IV LOPRESSOR 5MG IV ONCE. INFORMED THIS NURSE HE DOES NOT WANT TO TRY A DIFFERENT MEDICATION AT THIS TIME AND THAT HE IS AWARE PATIENTS BLOOD PRESSURE COULD CONTINUE TO DECREASE WITH THIS MEDICATION.
--- NOTE | 2021-11-21 22:07 | NUR ---
NURSE NOTE: SHAMA ZACARIAS NOTIFIED- POST ADMINISTRATION IV LOPRESSOR CONTINUED TO DROP PATIENTS BP AND IS NOW CURRENTLY 76/27 HR 111 PATIENT ALERT AND RESPONDING, REPORTS NO SYMPTOMS AT THIS TIME. NOTED INCREASED SHORTNESS OF BREATH. GAVE TELEPHONE ORDER TO ADMINISTER 1L BOLUS NORMAL SALINE VIA PRESSURE BAG STAT AND ADMINISTER ONE TIME ADDITIONAL DOSE OF PO MIDODRINE 5MG. [address] COMPLETED BP CURRENTLY 103/59 HR 105 2240 BP 85/49 HR 106 CONTINUED SHORTNESS OF BREATH RESPIRTORY RATE CURRENTLY 25, O2 93 % 6L NASAL CANNULA, LUNG SOUNDS CLEAR DIMINISHED. 2246 BOLUS COMLETED- BP NOW 73/64 HR 110 2251 78/56 MANUAL BLOOD PRESSURE OBTAINED
[2021-11-22 01:55] LABS: BASOPHILS ABSOLUTE AUTO 0.03 K/mm3 (0.00-0.23); BASOPHILS PERCENT AUTO 0 % (0-2); EOSINOPHILS ABSOLUTE AUTO 0.05 K/mm3 (0.00-0.68); EOSINOPHILS PERCENT AUTO 0 % (0-6); Hematocrit 26.6 % (33.0-51.0); Hemoglobin 8.5 g/dL (11.5-16.0); Mean Corpuscular HGB 27.5 pg (26.0-34.0); Mean Corpuscular Volume 86 fL (80-100); Mean Platelet Volume 9.4 fL (9.1-12.4); NRBC ABSOLUTE 0.02 K/mm3 (0.00-0.02); NRBC Auto 0.1 /100 WBC (0.0-0.2); Platelet Count 118 K/mm3 (150-400); RDW Coefficient Variation 21.6 % (11.7-14.2); RDW Standard Deviation 66.6 fL (35.1-46.3); Red Blood Cell Count 3.09 M/mm3 (3.80-5.20); White Blood Cell Count 14.35 K/mm3 (4.00-11.30)
[2021-11-22 01:56] LABS: Albumin, Blood 1.3 g/dL (3.4-5.0); Albumin/Globulin Ratio 0.4 (0.8-1.8); Bilirubin, Total 0.5 mg/dL (0.1-1.0); Bun/Creatinine Ratio 14.9 (12.0-20.0); Calcium, Blood 6.6 mg/dL (8.5-10.1); Creatinine, Blood 0.54 mg/dL (0.40-1.00); Globulin, Blood 3.1 g/dL (2.2-4.0); Potassium, Blood 3.6 mmol/L (3.5-5.5); Total Protein, Blood 4.4 g/dL (6.4-8.2)
[2021-11-22 01:58] LABS: IMMATURE GRAN ABSOLUTE AUTO 0.17 K/mm3 (0.00-0.10); IMMATURE GRAN PERCENT AUTO 1 % (0-1); LYMPHOCYTES ABSOLUTE AUTO 1.31 K/mm3 (0.84-5.20); LYMPHOCYTES PERCENT AUTO 9 % (21-46); MONOCYTES ABSOLUTE AUTO 0.54 K/mm3 (0.16-1.47); MONOCYTES PERCENT AUTO 4 % (4-13); NEUTROPHILS ABSOLUTE AUTO 12.25 K/mm3 (1.96-9.15); NEUTROPHILS PERCENT AUTO 85 % (41-73)
--- NOTE | 2021-11-22 06:18 | NUR ---
SHIFT SUMMARY ASSUMED CARE OF PT AROUND 0200. PT IS A/OX3. PT ANSWERS MOST QUESTSIONS WITH "I DONT KNOW" AND STATES THAT ALL SHE WANTS TO DO IS SLEEP. HEART SOUNDS TACHY. LUNG SOUNDS HAVE FINE CRACKLES. PT WAS PUT ON CPAP FROM 0300 TO 0600. PT TOLERATED WELL BUT WANTED OFF THIS AM. PT IS NOW ON OXIMIZER AT 11L, SATUSTAIONS AROUND 95-98%. BP REMAINED SOFT. DISCUSSED CARE WITH HOSPITALIST SHAMA WHO ORDERED MEDICATIONS AFTER CHART REVEIW. PT IS VERY PAINFUL, MEDICATED PER EMAR. JETT DRAINING DARK YELLOW URINE.
[2021-11-22 10:08] LABS: Hematocrit 24.7 % (33.0-51.0); Hemoglobin 7.9 g/dL (11.5-16.0)
[2021-11-22 18:05] LABS: Hematocrit 27.4 % (33.0-51.0); Hemoglobin 8.9 g/dL (11.5-16.0)
--- NOTE | 2021-11-22 18:21 | NUR ---
END OF SHIFT: UNCHANGED FROM SHIFT ASSESSMENT PLEASE REVIEW.
--- NOTE | 2021-11-22 18:22 | NUR ---
END OF SHIFT SUMMARY: PATIENT HAS BEEN AFEBRILE, BLOOD PRESSURE NORMOTENSIVE WITH MIDODRINE INCREASE FROM 5 TO 10 TID. PATIENT ON OXIMIZER WITH MUCH IMPROVEMENT THROUGHOUT THE DAY. PATIENT HAD DRESSING CHANGE PREFORMED BY THIS GRANTS ASSISTANT AN SIGNAL TIMER. ABD PADS, CALCIUM GLUCONATE, AND MEDIHONEY. PATIENT TOLERATED WELL SHE COULD WITH THE PAIN CONTROL EMAR MEDS AND REPOSITIONING. PATIENT HAS REFUSED MULTIPLE MEDICATIONS, EVEN WITH MULTIPLE TEACHINGS ON IMPROTENCE OF MEDICATION AND WOUND HEALING. PATIENT WITHDRAWN, NO THOUGHTS OF SI WHEN ASKED BY THIS GRANTS ASSISTANT. PATIENT DENIES CHEST PAIN OR PRESSURE, PAIN COVERED WHEN AT REST. ECHO WAS NOT PREFORMED TODAY. SWITCHED TO Q6 CBG'S. PATIENT HAS BEEN VERY PICKY WITH FOOD MAY BENEFIT FROM DIETARY CONSULT. PATIENT SHOWING NO SINGS OF ACUTE BLEEDING OR DISTRESS PATIEN TREFUSED THE SCD'S FOR ME AT THIS TIME. HAS BEEN ST 100-110. BLOOD SUGARS NOT ELEVATED TODAY. WILL CONTINUE TO MONITOR UNTIL SHIFT CHANGE.
[2021-11-23 05:05] LABS: Hematocrit 23.9 % (33.0-51.0); Hemoglobin 7.5 g/dL (11.5-16.0); Mean Corpuscular HGB 27.2 pg (26.0-34.0); Mean Corpuscular HGB Conc 31.4 g/dL (31.5-36.5); Mean Corpuscular Volume 87 fL (80-100); Mean Platelet Volume 9.7 fL (9.1-12.4); Platelet Count 129 K/mm3 (150-400); RDW Coefficient Variation 22.1 % (11.7-14.2); RDW Standard Deviation 68.2 fL (35.1-46.3); Red Blood Cell Count 2.76 M/mm3 (3.80-5.20); White Blood Cell Count 10.82 K/mm3 (4.00-11.30)
[2021-11-23 05:37] LABS: BASOPHILS PERCENT MAN 0 % (0-2); EOSINOPHILS PERCENT MAN 0 % (0-6); LYMPHOCYTES ABSOLUTE MAN 1.08 K/mm3 (0.84-5.20); LYMPHOCYTES PERCENT MAN 10 % (21-46); MONOCYTES ABSOLUTE MAN 0.43 K/mm3 (0.16-1.47); MONOCYTES PERCENT MAN 4 % (4-13); SEG NEUTROPHILS PERCENT MAN 86 % (41-73); TOTAL CELLS COUNTED 100
[2021-11-23 05:49] LABS: Albumin, Blood 1.6 g/dL (3.4-5.0); Albumin/Globulin Ratio 0.5 (0.8-1.8); Bilirubin, Total 0.8 mg/dL (0.1-1.0); Bun/Creatinine Ratio 16.5 (12.0-20.0); Creatinine, Blood 0.49 mg/dL (0.40-1.00); Globulin, Blood 3.2 g/dL (2.2-4.0); Potassium, Blood 3.7 mmol/L (3.5-5.5); Total Protein, Blood 4.8 g/dL (6.4-8.2)
--- NOTE | 2021-11-23 06:19 | NUR ---
SHIFT SUMMARY ASSUMED CARE OF PT AROUND 1900. PT IS A/OX4. HEART SOUNDS REGULAR. LUNG SOUNDS DIMINISHED. PT DESATURTATED TO 85% WHEN OFF OXIMIZER. PT WAS TITRATION RANGED FROM 5-9L. PT REFUSED CPAP. PT BP REMAINED SOFT. PT TOLERATED ROLLING AFTER GETTING PAIN MEDICAITON FIRST. PT WOUND DRESSED. PT MOTHER CALLED FOR AN UPDATE. MOTHER IS CONCERNED ABOUT WHY PT WILL NOT PARTICIPATE IN CARE. MOTHER SAID DOCTOR DISCUSSED DOING A PSYCH CONSULT ON PT. SHE ALSO EXPRESSED THAT PT HAS NOWHERE LEFT TO GO AFTER SHE IS BETTER AT HOSPITAL.
--- NOTE | 2021-11-23 15:31 | NUR ---
TRANSFER SUMMARY: PATIENT WSA BATHED, WOUND CARE PREFORMED, FRESH LINENS AND GOWN. PATIENT IN NO SIGNS OF ACTUE DISTRES, MEDICATED PAIN PER EMAR, PAIN WITHIN CONTROL AT REST, WITH REPOSITIONING PAIN OUT OF PREPORTION BUT DOES COME DOWN ONCE COMFORTABLE. PATIENT DENIES CHEST PAIN, IS NOT SOB. 6L VIA OXYMIZER, 0600 DOSE AND ALL OTHER MEDICATIONS IN THE ROOM WERE SENT WITH ADDITIONAL SUPPLIES ALONG WITH PERSONAL ITEMS WELL. PATIENT WAS AGREEABLE TO PLAN AND GREATFUL FOR CARE. PATIENT WAS ST 105, REPORT GIVEN TO RECIEVING RN WITH NO FURTHER QUESTIONS COMMMENTS OR CONCERNS. CONCERNS OF DIET, AND HbG RELAYED TO RECIEVING RN. NO FURTHER QUESTIONS FROM RECIEVING RN. PATIENT ENDORSES NO QUESTIONS OR CONCERNS AT THIS TIME.
--- NOTE | 2021-11-23 17:21 | NUR ---
O2 WAS 8L WHEN ARRIVED TO ROOM. TURNED DOWN TO 6L O2 AT 1700 94% RECHECK AT 1720 96% ON 6L
--- NOTE | 2021-11-23 17:36 | NUR ---
PT RECEIVED TO ROOM THIS AFT. SHE HAS DENIED PAIN AT THIS TIME. HAD A DISCUSSION ABOUT HER WOUND ON HER BOTTOM AREA. THAT SHE MUST NOT BE REFUSING MEDS AND MUST BE TURNING OFF THE BOTTOM TO LET CIRCURLATION BE HAD. SHE MUST NOT BE REFUSING TURNS. SHE STATES UNDERSTANDS. PLACED ON HER RT SIDE. HAVE RECENTLY TURNED TO THE LEFT SIDE. HER GOAL IS TO GO HOME TO SEE HER DOG. I EXPLAINED HER THE BEST WAY IS TO TAKE ALL MEDS, KEEP TURNED REGULARLY, AND KEEP CLEAN AND DRY. SHE AGREES. WOUND WAS CLEANED AND CHCANGED JUST PRIOR TO HER TRANSFER HERE FROM [facility] THIS AFT. BED IN LOW POSITION, CALLLITE IN REACH, CALLS APPROP
[2021-11-24 05:19] LABS: Hematocrit 25.3 % (33.0-51.0); Hemoglobin 7.5 g/dL (11.5-16.0); Mean Corpuscular HGB 27.1 pg (26.0-34.0); Mean Corpuscular HGB Conc 29.6 g/dL (31.5-36.5); Mean Corpuscular Volume 91 fL (80-100); NRBC ABSOLUTE 0.05 K/mm3 (0.00-0.02); NRBC Auto 0.6 /100 WBC (0.0-0.2); Platelet Count 153 K/mm3 (150-400); RDW Coefficient Variation 22.6 % (11.7-14.2); RDW Standard Deviation 75.7 fL (35.1-46.3); Red Blood Cell Count 2.77 M/mm3 (3.80-5.20); White Blood Cell Count 8.08 K/mm3 (4.00-11.30)
[2021-11-24 05:40] LABS: Bun/Creatinine Ratio 25.1 (12.0-20.0); Calcium, Blood 7.3 mg/dL (8.5-10.1); Creatinine, Blood 0.48 mg/dL (0.40-1.00); Potassium, Blood 3.4 mmol/L (3.5-5.5)
--- NOTE | 2021-11-24 06:39 | NUR ---
A&OX4. V/S WNL. ACCUCHECKS Q6HRS. ORANGE JUICE GIVEN AT 0615. PT HAD A FEW SIPS. V/S WNL. O2 @ 5LPM VIA N/C. FULL LIQUID DIET. TURNED Q 2HRS. AT TIMES PT REFUSED TURNS AND UNCOOPERATIVE WITH CARES/MEDS. PT EDUCATED AND STILLR REFUSED. POWER GLIDE TO R) UPPER ARM. PRN FENTANYL IV GIVEN FOR PAIN X4 PER EMAR. NO BM THIS SHIFT. JETT CATHETER IN PLACE AND DRAINING YELLOW URINE. 2- ASSIST. WILL CONTINUE TO MONITOR.
--- NOTE | 2021-11-24 08:30 | NUR ---
IN ROOM. CHELSEA ZAPATA WITH BP IS.
--- NOTE | 2021-11-24 09:00 | NUR ---
DR WINN TO ROOM. DISCUSSED K+ ORDERS. OKAY TO HOLD THE EARLY DOSE. DONE. ALSO DISCUSSED PT OVERALL SITUATION ON WOUND CARE. WILL BE PUTTING IN 1200 FLUID RESTRICT TODAY.
--- NOTE | 2021-11-24 09:00 | NUR ---
PT A/O X3 IRRITATED IS BEING AWAKENED. STATES PAIN USUALLY ONLY WHEN GETS TURNED OR DRESSING CHANGES. NONE AT THIS TIME. WE HAD GOOD TALK ABOUT KEEPING TURNED TO SIDES TODAY. THAT SHE HAD REFUSED SOME MEDS IN PAST AND REFUSED TO BE TURNED. TALKED ABOUT HOW THIS RELATES TO HER BED SORES. EXPLAINED THEY DO NOT HEAL WITHOUT CIRCULATION. THAT THE MEDS WE GIVE SUPPORT THE BODY TO HEAL ITSELF. STATES WANTS TO GET BETTER. H/R REG, NO MURMER NOTED. PER TELE S TACH AT 106. PRESENTLY ON 6 L O2 OXYMIZER. RESP EASY, UNALBORED. BT HYPO. PT STATES NOT KNOW WHEN LAST BM. VOIDS JETT CATH. YELLOW FLUID DRAINING TO GRAVITY. BED IN LOW POSITION, CALL LITE IN REACH, CALLS APPROP
--- NOTE | 2021-11-24 11:30 | NUR ---
WOUND CARE DRESSING CHANGE DONE TODAY. SOME REDNESS AND SOME CLEANNESS AT EDGES NOTED. DRESSED PER ORDERS. PT DID GET MEDICATED WITH FENTANYL PRIOR. DID OKAY THRU CHANGE. AGAIN REINFORCED STAYING OFF THE BUTTOCKS. PT AGREED TO TRY.
[2021-11-24 12:53] LABS: Bun/Creatinine Ratio 24.7 (12.0-20.0); Calcium, Blood 7.3 mg/dL (8.5-10.1); Creatinine, Blood 0.49 mg/dL (0.40-1.00); Magnesium, Blood 1.4 mg/dL (1.6-2.4); Potassium, Blood 3.7 mmol/L (3.5-5.5)
[2021-11-24 15:35] LABS: Bun/Creatinine Ratio 26.8 (12.0-20.0); Calcium, Blood 7.5 mg/dL (8.5-10.1); Creatinine, Blood 0.49 mg/dL (0.40-1.00); Potassium, Blood 3.7 mmol/L (3.5-5.5)
--- NOTE | 2021-11-24 15:48 | NUR ---
TURNED PT TO LEFT SIDE. SHE OBJECTED LOUDLY. TRYING TO REFUSE BEING TURNED. BUT FINALLY AGREED AND SETTLED DOWN. OFFERED PAIN MEDS. OKAY AT THIS TIME.
--- NOTE | 2021-11-24 18:03 | NUR ---
PT MOSTLY PLEASANT TODAY. ANGRY THAT GETS AWAKENED DURING DAY FOR TURNING AND CHANGING. DID GET DRESSING CHANGE TODAY. MEDICATED PRIOR. SOME IMPROVEMENT NOTED. TURNED PT TO SIDES TODAY Q 2 HRS. PROPPED WITH PILLOWS. SHE OCCATIONALLY WILL TURN BACK TO HER BACK. STILL REFUSING A COUPLE MEDS. BUT MUCH BETTER. DID AGREE TO MOVE HER TO A MORE REGULAR DIET TONITE OR TOMORRW. NO OTHER CONCERNS NOTED. BED IN LOW POSITION, CALL LITE IN REACH, CALLS APPROP
--- NOTE | 2021-11-25 04:49 | NUR ---
A&OX4. AMBIVALENT/IRRITABLE AT TIMES. V/S WNL. 2-ASSIST. PT REFUSES SOME MEDS/TURNS AND GOWN CHANGES. UNSTAGABLE COCCYX PRESSURE ULCERS CLEANED ONCE DAILY IN AM. ACCUCHECKS AC&HS. HS ACUCCHECK: 85 & APPLE JUICE GIVEN. REGULAR DIET. POWERGLIDE R) UPPER ARM. INCONTINENT OF BOWEL. LAST BM 02/22/22. PT REFUSES CONSTIPATION MEDS OR PRUNE JUICE. PRN FENTANYL IV GIVEN FOR GENERALIZED PAIN TWICE THIS SHIFT. 02 @5LPM VIA OXYMIZER. WILL CONTINUE TO MONITOR.
[2021-11-25 05:22] LABS: Bun/Creatinine Ratio 27.5 (12.0-20.0); Calcium, Blood 7.1 mg/dL (8.5-10.1); Creatinine, Blood 0.55 mg/dL (0.40-1.00); Potassium, Blood 3.2 mmol/L (3.5-5.5)
[2021-11-25 07:04] LABS: Hematocrit 25.3 % (33.0-51.0); Hemoglobin 7.8 g/dL (11.5-16.0); Mean Corpuscular HGB 27.4 pg (26.0-34.0); Mean Corpuscular HGB Conc 30.8 g/dL (31.5-36.5); Mean Corpuscular Volume 89 fL (80-100); Mean Platelet Volume 9.8 fL (9.1-12.4); Platelet Count 213 K/mm3 (150-400); RDW Coefficient Variation 22.3 % (11.7-14.2); RDW Standard Deviation 71.3 fL (35.1-46.3); Red Blood Cell Count 2.85 M/mm3 (3.80-5.20); White Blood Cell Count 6.75 K/mm3 (4.00-11.30)
[2021-11-25 13:01] LABS: Bun/Creatinine Ratio 29.1 (12.0-20.0); Calcium, Blood 7.8 mg/dL (8.5-10.1); Creatinine, Blood 0.52 mg/dL (0.40-1.00); Potassium, Blood 3.4 mmol/L (3.5-5.5)
--- NOTE | 2021-11-25 18:11 | NUR ---
SHIFT SUMMARY PT A&O X4 AND IN MOOD UP AND DOWN T/O SHIFT. WOUND DRESSED THIS SHIFT, NEW PHOTO DOC IN HARD COPY. TURNED Q2H. VSS. TURNED Q2H. PAIN MEDICATED PER EMAR, REPOSITION. CALL LIGHT W/IN REACH. TELE IN PLACE. RESTED IN BED T/O SHIFT, CASH MANAGEMENT COORDINATOR IN TO SEE PT THIS SHIFT.
--- NOTE | 2021-11-25 23:57 | NUR ---
AT 2049, DR. FREEMAN NOTIFIED OF PT'S BP: 84/58 & HR:96BPM. PROVIDER ALSO INFORMED OF PT'S HISTORY, EDEMA & FLUID RESTRICTION:1200 ML A DAY. PROVIDER ORDERED A ONE-TIME 500 ML BOLUS NS OVER 2 HOURS. 500 ML BOLUS NS GIVEN ORDERED AND BP RECHECKED AFTER BOLUS.
--- NOTE | 2021-11-26 05:45 | NUR ---
A&OX4. AMBIVALENT. NON-COMPLIANT WITH SOME MEDS/TURNS. HYPOTENSIVE; 500 ML BOLUS NS GIVEN ONCE PER ORDER. V/S WNL. TELE:SR @HR OF 91 BPM. HS ACUCHECK:94. REGULAR DIET. POWERGLIDE TO R) UPPER ARM. O2 @5LPM VIA OXYMIXER. FC IN SITU AND DRAINING GOOD AMOUNTS OF CLEAR YELLOW URINE. UNSTAGABLE COCCYX WOUNDS AND HIP WOUND; REFER TO CHART FOR PICS. PRN FENTANYL GIVEN X3 FOR PAIN CONTROL. 2-ASSIST. WILL CONTINUE TO MONITOR.
[2021-11-26 06:18] LABS: Bun/Creatinine Ratio 41.8 (12.0-20.0); Calcium, Blood 7.7 mg/dL (8.5-10.1); Creatinine, Blood 0.48 mg/dL (0.40-1.00); Potassium, Blood 3.7 mmol/L (3.5-5.5)
[2021-11-26 07:47] LABS: Hemoglobin 7.9 g/dL (11.5-16.0)
--- NOTE | 2021-11-26 19:36 | NUR ---
SHIFT SUMMARY PT A&O X4, MOOD UP AND DOWN T/O SHIFT. PT TURNED Q2H. C/O PAIN MEDICATED PER EMAR. HYPOTENTION MEDICATED PER EMAR. TELE IN PLACE, SR 90'S. JETT DRAINING TO GRAVITY. FAMILY IN TO SEE PT THIS SHIFT. CALL LIGHT W/IN REACH.
[2021-11-26 19:43] LABS: Hematocrit 25.9 % (33.0-51.0); Hemoglobin 8.1 g/dL (11.5-16.0)
--- NOTE | 2021-11-27 06:13 | NUR ---
SHIFT SUMMARY NOC: PT TURNED Q2 HOURS. DRESSING TO COCCYX CHANGED PER WOUND CARE ORDERS. PT HAD 5-9/10 PAIN TO COCCYX AND BILATERAL LOWER EXTREMITIES. PAIN WELL CONTROLLED WITH CURRENT PRN MEDICATIONS. CBG THIS AM 79. APPLE JUICE AND LESLEY CRACKERS GIVEN.
[2021-11-27 07:50] LABS: Hemoglobin 7.8 g/dL (11.5-16.0)
[2021-11-27 08:03] LABS: Bun/Creatinine Ratio 41.9 (12.0-20.0); Calcium, Blood 7.8 mg/dL (8.5-10.1); Creatinine, Blood 0.53 mg/dL (0.40-1.00); Potassium, Blood 3.4 mmol/L (3.5-5.5)
--- NOTE | 2021-11-27 16:57 | NUR ---
SHIFT SUMMARY PT A&O X4 AND IN PLEASENT MOOD. REPOSITIONED Q2H. C/O PAIN MEDICATED PER EMAR. TOLERATING PO INTAKE WELL. HYPOTENSION NOTED, OTHER VSS. CALL LIGHT W/IN REACH. TELE IN PLACE. JETT DRAINING TO GRAVITY.
--- NOTE | 2021-11-28 07:40 | NUR ---
SHIFT SUMMARY NOC: PT NPO SINCE MIDNIGHT FOR I&D OF COCCYX. PT TURNED Q2 HOURS. DRESSING CHANGED TO COCCYX PER WOUND CARE ORDERS. PAIN WELL CONTROLLED WITH CURRENT PRN MEDICATIONS. CBG 71 THIS AM. PT REFUSING TO DRINK JUICE. CALLED. GLUCOSE ORAL GEL ORDERED. PT TASTED THEN REFUSED. D5 250 ML IV ONCE ORDERED. DAY SHIFT TO HANG DRIP.
[2021-11-28 07:57] LABS: Hematocrit 28.1 % (33.0-51.0); Hemoglobin 8.6 g/dL (11.5-16.0)
[2021-11-28 08:26] LABS: Bun/Creatinine Ratio 40.8 (12.0-20.0); Calcium, Blood 7.9 mg/dL (8.5-10.1); Creatinine, Blood 0.66 mg/dL (0.40-1.00); Potassium, Blood 3.3 mmol/L (3.5-5.5)
--- NOTE | 2021-11-28 14:08 | NUR ---
PT DID AT ONE TIME C/O PAIN I WAS USEING DISTRACTION INSTEAD OF PAIN MEDICATION DUE TO LOW BLOOD PRESSURE AT BASELINE. THIS SEEMED TO WORK SHE VISITS WITH STAFF OR APPERS TO REST OFFERS NO COMPLAINTS
--- NOTE | 2021-11-28 14:41 | NUR ---
Pt currently in surgery for I&D of coccyx wound. Per Dr. Brand, pt recently agreed to try starting an antidepressant for situational depression that she had not previously spoken of or been willing to discuss. Plan: Follow up with pt to offer therapeutic visits. Check in with family, assess how they are handling pt's lengthy hospital stay, offer therapeutic visits.
--- NOTE | 2021-11-28 18:33 | NUR ---
SHIFT SUMMARY; PATIENT HAD SURGICAL I AND D OF WOUND ON BUTTOCKS. PER OVERLOCK SEWING MACHINE OPERATOR PICTURES WERE TAKEN AND ARE IN CHART. ORDER FROM FOR WOUND DRESSING CHANGE DAILY AND NEEDED. PATIENT RECEIVED FENTANYL ONE TIME AFTER RETUNING FROM SURGERY AND HAS NOT ASKED FOR ANYTHING ELSE FOR PAIN SINCE. HER MEDICATIONS WERE GIVEN OFF SCHEDULE TODAY SHE WAS IN SURERY AND WAS NPO PRIOR. PATIENT CURRENTLY RESTING COMFRTABLY BILATERAL HIPS ARE FLOATED ON PILLOWS AT THIS TIME. PATIENT EATING DINNER AND HAS NO COMPAINTS. SHE HAD FAMILY VISIT AND SAID SHE IS LOOKING FORWARD TO GOING HOME.
[2021-11-28 20:37] LABS: Hematocrit 27.6 % (33.0-51.0); Hemoglobin 8.8 g/dL (11.5-16.0)
--- NOTE | 2021-11-29 05:32 | NUR ---
SHIFT SUMMARY NOC: PT HAVING POST OP PAIN TO COCCYX SURGICAL I&D SITE. PAIN WELL CONTROLLED WITH CURRENT PRN MEDICATIONS WHICH ARE REQUESTED OFTEN. PT TURNED Q2 HOURS. PT HAS BEEN COMPLIANT WITH CARE THIS SHIFT. NO ACUTE EVENTS.
[2021-11-29 06:13] LABS: Bun/Creatinine Ratio 39.3 (12.0-20.0); Creatinine, Blood 0.71 mg/dL (0.40-1.00); Potassium, Blood 3.6 mmol/L (3.5-5.5)
--- NOTE | 2021-11-29 08:00 | NUR ---
pt laying in bed awake a/ox3, flat affect, seems depressed, cooperative with care, states she's in pain, more pain than before surg, will medicate this am, lungs are clear dim t/o, on 2 liters 02 via n/c, resp even and unlabored, no cough noted, hrr, tele in place running sr per monitor, see strip, 2+ edema noted to b/l le, ppp+2, cap refill <3sec, vs stable, afebrile, iv power glide to sandra, piv to lac, sites are clear and patent, btx4, abd flat soft nontender, voids via andrade cath at this time, draining clear yellow urine, skin has extensive wound to coccyx, that was surgically debrided yesterday, wound to l hip with mepilex in place, moves upper arms without diff, not so much legs, can wiggle feet, ada, call light in reach.
--- NOTE | 2021-11-29 18:21 | NUR ---
pt has had an uneventful day, medicated for pain three times, has been turned t/o the day, no acute changes this shift call light in reach.
--- NOTE | 2021-11-30 04:05 | NUR ---
SHIFT SUMMARY: PT IS A/OX4. SHE IS VERY CALM AND COOPERATIVE WITH ALL CARE. SHE STATES THAT HER PAIN IS AROUND 8-10 MOST OFTEN WITH FENTANYL BEING MOST EFFECTIVE IN REDUCING HER PAIN. SHE DID RECEIVE THE 2100 OXYCONTIN, BUT SAYS IT DID NOT DO MUCH. SHE IS WEARING 2L OF OX2 TO STAY >92%. PER CLINICAL AUDIOLOGIST: SR/84. SHE WAS REPOSITIONED Q2. JETT IS PATENT AND DRAINING TO GRAVITY. HER CALL LIGHT IS WITHIN REACH AND WE'LL CONTINUE TO MONITOR THE REMAINDER OF THE SHIFT.
[2021-11-30 05:35] LABS: Hematocrit 28.2 % (33.0-51.0); Hemoglobin 8.5 g/dL (11.5-16.0); Mean Corpuscular HGB 27.2 pg (26.0-34.0); Mean Corpuscular HGB Conc 30.1 g/dL (31.5-36.5); Mean Corpuscular Volume 90 fL (80-100); Mean Platelet Volume 8.7 fL (9.1-12.4); Platelet Count 728 K/mm3 (150-400); RDW Coefficient Variation 21.2 % (11.7-14.2); Red Blood Cell Count 3.13 M/mm3 (3.80-5.20)
[2021-11-30 07:22] LABS: Bun/Creatinine Ratio 40.6 (12.0-20.0); Calcium, Blood 8.1 mg/dL (8.5-10.1); Creatinine, Blood 0.69 mg/dL (0.40-1.00); Potassium, Blood 3.6 mmol/L (3.5-5.5)
--- NOTE | 2021-11-30 08:00 | NUR ---
pt laying in bed awake watching tv, a/ox3, flat affect, cooperative with care, today, lungs are clear in upper saenz, dim in bases, resp even and unlabored, on r/a, no cough noted, hrr, tele in place running sr per montior, see strip, 2+ edema noted to b/l le, cap refill <3sec, vs stable, afebrile, iv is power glide to sandra, site is clear and patent, btx4, abd large soft nontender, voids via andrade cath at this time, draining clear yellow urine, skin has extensive wound to coccyx, and left hip, will change dressing today after medicating her, moves upper ext well, not legs so much, ada, call light in reach.
--- NOTE | 2021-11-30 18:09 | NUR ---
pt had an uneventful day, she had her dressing chaged with difficulty, she doesn't tolerate and kind of fights it, even having given her fentanyl prior to, medicated as needed, dosed off and on, no further changes this shift call light in reach.
--- NOTE | 2021-12-01 04:21 | NUR ---
SHIFT SUMMARY PATIENT HAD LOW GRADE TEMP AND TYLENOL 650 MG GIVEN PER EMAR. AXOX 3 WITH FLAT AFFECT, BEDREST. POWERGLIDE DIONNE INTACT. PIV REMAINS INTACT. JETT PATENT AND DRAINING TO GRAVITY. TELE MONITOR NSR 81. DENIES SOB AND N/V. SCHEDULE OXYCONTIN 15 MG GIVEN FOR PAIN MANAGEMENT FOR WOUND TO COCCYX. COOPERATIVE WITH CARE. CALL LIGHT IN REACH. BED IN LOWEST POSITION. WILL CONTINUE TO MONITOR UNTIL DAY SHIFT NURSE ASSUMES CARE.
--- NOTE | 2021-12-01 15:06 | NUR ---
WOUND DRESSIING CHANGE CHANGED PTS SACRAL WOUND USEING SKINTEGRITY TO CEAN, COVERED WITH XEROFORM PACKED THE COCCYX WITH GAUZE COVERED WITH EXUDRY AND ABD PADS SECURED WITH MEFIX TAPE. PT WAS PRE MEDICATED FOR PAIN AND TOLERATED THE PROCESS WELL
--- NOTE | 2021-12-01 17:09 | NUR ---
PT IS A/OX3, PLEASANT AND COOPERATIVE. THE PT IS BED REST AT THIS TIME. PT WAS REPOSITIONED. THE PTS WOUND DRESSING WAS CHANGED THIS AFTERNOON. THE PT WAS PREMEDICATED FOR PAIN AND TOLERATED THE PROCESS WELL. THE PT APPEARS TO BE BREATHING EASILY ON RA AT THIS TIME, CALL LIGHT IN REACH, WILL CONTINUE TO MONITOR AND ASSESS FOR CHANGES
--- NOTE | 2021-12-02 03:44 | NUR ---
51 year old Female appears older than actual age continues on bariatric bed to promote wound healing & andrade cath patent to prevent incont to stage 4 sacral wound. PT needs turned Q 2 hours to prevent further skin breakdown. She has minimal movement & is total assist of 2 to turn or lift. PT has scheduled & PRN pain meds for sacral wound pain of 8. On fluid restriction 1200 ml. PT continues on oxygen 2 l oximizer.
--- NOTE | 2021-12-02 06:17 | NUR ---
PT who was admitted on 11/17 with blood loss shock from stage 4 sacral wound continues on bariatric pressure relieving bed to promote wound healing. Daily dressing change done on day shift. PT unable to reposition self 2 assist for q 2 hour turns. PT has andrade cath to promote wound healing. Medicated withg sched & prn pain med with helpful effect. PT continues on oxygen via oximizer 2 l .
--- NOTE | 2021-12-02 18:33 | NUR ---
SHIFT SUMMARY PTN A&O X3, FLAT AFFECT, PLEASANT. PTN WITH SACRAL DECUBITUS, PAINFUL THROUGHOUT DAY, MEDICATED PER EMAR. DRESSING CHANGE DONE PER ORDERS. PTN DID HAVE TEMP 100.9 FIRST OF SHIFT, RECHECKED AND 100.0 BY 9 AM. PTN ON FLUID RESTRICTION. PTN BEDFAST WITH POSITION CHANGES THROUGHOUT SHIFT, EDUCATED ON SAME RELATED TO OFFLOADING FOR PRESSURE. POSSIBLE SNF PLACEMENT.
--- NOTE | 2021-12-03 05:12 | NUR ---
Morbidly obese PT with stage4 sacral coccyx buttocks dcub on admissoin who was admitted with shock after bleeding from dcub has poor appetite less than 25 on only 1 meal and zero of 2 other meals continues on speciality bed to decrease risk of further wounds. Fecal incont dressing change as directed to large area. Premedicated for pain prior to dressing change with 50 mcg fentanyl with helpful effect. Mother who lives in [place] updated on plan of care.
[2021-12-03 08:42] LABS: Bun/Creatinine Ratio 45.5 (12.0-20.0); Creatinine, Blood 0.62 mg/dL (0.40-1.00)
[2021-12-03 08:44] LABS: Potassium, Blood 2.4 mmol/L (3.5-5.5)
--- NOTE | 2021-12-03 18:40 | NUR ---
SHIFT SUMMARY PTN PLEASANT COOPERATIVE, RESTED SOME DURING DAY. RT EVALUATED O2, WEANED OFF COMPLETELY, TO MAINTAIN >90. WOUND CARE DONE, PHOTO FOR RECORDS. BS CHANGED TO QAM. POTASSIUM LOW, ONE-TIME DOSE POTASSIUM X2 THIS SHIFT. PTN DOES NOT HAVE GOOD APPETITE, ATE VERY LITTLE THROUGHOUT SHIFT.
[2021-12-04 06:16] LABS: Bun/Creatinine Ratio 51.7 (12.0-20.0); Calcium, Blood 8.2 mg/dL (8.5-10.1); Creatinine, Blood 0.58 mg/dL (0.40-1.00); Potassium, Blood 3.6 mmol/L (3.5-5.5)
--- NOTE | 2021-12-04 07:23 | NUR ---
PT continues to be bedbound with painful deep stage 4 ducub to sacral & coccxy with multiple pain meds given with mild helpful effect. 2 max assist to turn side to side PT does not assist with turns. Very poor oral intake with refusals of replacements or supplements. Weaned to room air from 2 l .
--- NOTE | 2021-12-04 15:12 | NUR ---
Spritiual Care Visit. Pt. is awake in bed and welcomes my visit. Pt. is unsettled about "why" she has suffered so much. Listened empathetically and explored issues of stephen and belief. Pt. displayed evidence of understanding and agreement. Gave pastoral encouragment and prayed with pt. Pt. vebrlized gratitude for the spiritual care visit.
--- NOTE | 2021-12-04 17:14 | NUR ---
NO ACUTE CHANGES PT AOX4 AND CAN BE COOPERATIVE OTHER TIMES SHE MAY TRY TO REFUSE. PT REPOSITIONED EVERY COUPLE HOURS. UNSTAGEABLE WOUND ON COCCYX REBANDAGED AND PT WAS GIVEN BED BATH. PT TREATED FOR PAIN PER EMAR. NO DISTRESS NOTED AT THIS TIME. CALL LIGHT WITHIN REACH WILL CONTINUE TO MONITOR.
--- NOTE | 2021-12-05 05:45 | NUR ---
SHIFT SUMMARY NOC: PT REQUESTS PRN PAIN MEDS FREQUENTLY. PT HAD BM SATURATING COCCYX DRESSING. PT CLEANED UP AND DRESSING CHANGED. PT TURNED Q2 HOURS. PT HAS BEEN COMPLIANT WITH CARE. NO ACUTE EVENTS.
[2021-12-05 06:09] LABS: Bun/Creatinine Ratio 43.2 (12.0-20.0); Creatinine, Blood 0.69 mg/dL (0.40-1.00); Potassium, Blood 2.7 mmol/L (3.5-5.5)
[2021-12-05 14:13] LABS: Bun/Creatinine Ratio 43.2 (12.0-20.0); Calcium, Blood 7.9 mg/dL (8.5-10.1); Creatinine, Blood 0.67 mg/dL (0.40-1.00); Magnesium, Blood 1.7 mg/dL (1.6-2.4); Potassium, Blood 3.4 mmol/L (3.5-5.5)
--- NOTE | 2021-12-05 15:18 | NUR ---
Pt getting wound care able to help with some of the turnng. She is grimacing during care. Review of symptoms pt has mild headache no ringing in her ears. She is anxious and depressed. Review of her family stress...It is still a process but situation is improving. She denies dyspnea, she want to dose off frequntly and is sleepy but lacks true deep sleep. She denies shortness of breath. No nausea noted today. Did not review appetitie will discuss PO intake with communications associate. She is painfull and achey all over most of her pain is in the low back and wound areas. Will review with pharmacy and physician. Nerve pain medication consider neurontin starting at night and tititrate up may benefit from some tylenol and will review equagesic dose with fentanyl patch. Will see if wound care can contribute with topical for ecorinated buring pain to skin. Pt high risk for readmission due to wound care and pain. Suggest psyciatic referral post discharge follow up for apecific seratonin tolerance and sleep disturbance realted to pain and stress. Will try to get pt to do some art therapy. will see if she can benefit from pet therapy. Will have volunteer try some you tube videos of activities. Will asses if she had hobbies or crafts and still has interest. pt kps score is 40%. Will suggest team meeting. pt may benefit from some water therapy. Will review with pt/ot
--- NOTE | 2021-12-05 18:29 | NUR ---
NO ACUTE CHANGES.PT AOX4 AND COOPERATIVE OF CARE. NO DISTRESS NOTED PT TURNED Q2 HRS AND NEEDED. PT HAD WOUND BANDAGE CHANGED AND REPLACED ON COCCYX AREA. PT IS INCONTINENT OF BMs AND IS TWO PERSON TO CHANGE. CALL LIGHT IS WITHIN REACH WILL CONTINUE TO MONITOR.
--- NOTE | 2021-12-06 05:37 | NUR ---
SHIFT SUMMARY NOC: PT HAD BM TONIGHT. PT CLEANED UP, DRESSING TO COCCYX CHANGED. PT TURNED Q2 HOURS. PT ASKS FOR PRN PAIN MEDS FREQUENTLY. PT TURNED Q2 HOURS. PT HAS BEEN COMPLIANT WITH CARE. NO ACUTE EVENTS.
[2021-12-06 07:07] LABS: BASOPHILS ABSOLUTE AUTO 0.09 K/mm3 (0.00-0.23); BASOPHILS PERCENT AUTO 1 % (0-2); EOSINOPHILS ABSOLUTE AUTO 0.13 K/mm3 (0.00-0.68); EOSINOPHILS PERCENT AUTO 1 % (0-6); Hematocrit 31.1 % (33.0-51.0); Hemoglobin 9.7 g/dL (11.5-16.0); IMMATURE GRAN ABSOLUTE AUTO 0.25 K/mm3 (0.00-0.10); IMMATURE GRAN PERCENT AUTO 2 % (0-1); LYMPHOCYTES ABSOLUTE AUTO 2.14 K/mm3 (0.84-5.20); LYMPHOCYTES PERCENT AUTO 18 % (21-46); MONOCYTES ABSOLUTE AUTO 1.56 K/mm3 (0.16-1.47); MONOCYTES PERCENT AUTO 13 % (4-13); Mean Corpuscular HGB 27.2 pg (26.0-34.0); Mean Corpuscular HGB Conc 31.2 g/dL (31.5-36.5); Mean Corpuscular Volume 87 fL (80-100); Mean Platelet Volume 8.7 fL (9.1-12.4); NEUTROPHILS PERCENT AUTO 64 % (41-73); NRBC ABSOLUTE 0.02 K/mm3 (0.00-0.02); NRBC Auto 0.2 /100 WBC (0.0-0.2); Platelet Count 706 K/mm3 (150-400); RDW Coefficient Variation 19.1 % (11.7-14.2); RDW Standard Deviation 61.7 fL (35.1-46.3); Red Blood Cell Count 3.56 M/mm3 (3.80-5.20); White Blood Cell Count 11.67 K/mm3 (4.00-11.30)
[2021-12-06 08:46] LABS: Albumin, Blood 1.7 g/dL (3.4-5.0); Albumin/Globulin Ratio 0.4 (0.8-1.8); Bilirubin, Total 0.5 mg/dL (0.1-1.0); Bun/Creatinine Ratio 47.7 (12.0-20.0); Calcium, Blood 8.1 mg/dL (8.5-10.1); Creatinine, Blood 0.69 mg/dL (0.40-1.00); Free Thyroxine 1.08 ng/dL (0.70-1.60); Globulin, Blood 4.2 g/dL (2.2-4.0); Potassium, Blood 3.6 mmol/L (3.5-5.5); Total Protein, Blood 5.9 g/dL (6.4-8.2)
--- NOTE | 2021-12-06 18:28 | NUR ---
SHIFT SUMMARY PATIENT MEDICATED FOR PAIN X2. PATIENT DENIES NAUSEA AND SHORTNESS OF BREATH. PATIENT IS BEDREST. JETT IS PATENT AND DRAINING YELLOW URINE. WOUND CARE DONE AND DRESSING CHANGED ON COCCYX. PATIENT IS EATING AND DRINKING WELL. PATIENT IS PLEASANT AND COOPERATIVE WITH CARE. TURNED Q2 HOURS PATIENT ALLOWS.
[2021-12-07 05:12] LABS: Hematocrit 29.5 % (33.0-51.0); Hemoglobin 9.4 g/dL (11.5-16.0); Mean Corpuscular HGB 27.5 pg (26.0-34.0); Mean Corpuscular HGB Conc 31.9 g/dL (31.5-36.5); Mean Corpuscular Volume 86 fL (80-100); Mean Platelet Volume 8.5 fL (9.1-12.4); NRBC ABSOLUTE 0.02 K/mm3 (0.00-0.02); NRBC Auto 0.2 /100 WBC (0.0-0.2); Platelet Count 602 K/mm3 (150-400); RDW Standard Deviation 60.1 fL (35.1-46.3); Red Blood Cell Count 3.42 M/mm3 (3.80-5.20); White Blood Cell Count 12.23 K/mm3 (4.00-11.30)
--- NOTE | 2021-12-07 05:24 | NUR ---
SHIFT SUMMARY NOC: PT HAS BEEN COMPLIANT WITH CARE. ASKS FOR PRN PAIN MEDICATIONS FREQUENTLY. SMALL BM/SMEAR THIS SHIFT. DRESSING TO COCCYX CLEAN, DRY, INTACT. PT TURNED Q2 HOURS. NO ACUTE OVERNIGHT EVENTS.
[2021-12-07 05:57] LABS: Alanine Aminotransfer (ALT/SGP <6 U/L (12-78); Albumin, Blood 1.7 g/dL (3.4-5.0); Albumin/Globulin Ratio 0.4 (0.8-1.8); Alk Phos 152 U/L (50-136); Anion Gap 9 mmol/L (6-16); Aspartate Aminotrans (AST/SGOT 12 U/L (12-37); Bilirubin, Total 0.4 mg/dL (0.1-1.0); Blood Urea Nitrogen 42 mg/dL (8-24); Bun/Creatinine Ratio 54.3 (12.0-20.0); CO2, Blood 30 mmol/L (21-32); Calcium, Blood 7.9 mg/dL (8.5-10.1); Chloride, Blood 92 mmol/L (98-108); Creatinine, Blood 0.77 mg/dL (0.40-1.00); Globulin, Blood 3.9 g/dL (2.2-4.0); Glomerular Filtration Rate 95 (60-); Glucose, Blood 80 mg/dL (70-99); Potassium, Blood 2.6 mmol/L (3.5-5.5); Sodium, Blood 131 mmol/L (136-145); Total Protein, Blood 5.6 g/dL (6.4-8.2)
[2021-12-07 06:15] LABS: BAND PERCENT MAN 2 % (0-8); BASOPHILS ABSOLUTE MAN 0.12 K/mm3 (0.00-0.23); BASOPHILS PERCENT MAN 1 % (0-2); EOSINOPHILS PERCENT MAN 0 % (0-6); LYMPHOCYTES % ATYPICAL MANUAL 2 % (0-0); LYMPHOCYTES ABSOLUTE MAN 2.32 K/mm3 (0.84-5.20); LYMPHOCYTES PERCENT MAN 17 % (21-46); METAMYELOCYTE ABSOLUTE MAN 0.12 K/mm3 (0.00-0.00); METAMYELOCYTE PERCENT MAN 1 % (0-0); MONOCYTES ABSOLUTE MAN 1.22 K/mm3 (0.16-1.47); MONOCYTES PERCENT MAN 10 % (4-13); MYELOCYTE ABSOLUTE MAN 0.12 K/mm3 (0.00-0.00); MYELOCYTE PERCENT MAN 1 % (0-0); NEUTROPHILS ABSOLUTE MAN 8.31 K/mm3 (1.96-9.15); SEG NEUTROPHILS PERCENT MAN 66 % (41-73); TOTAL CELLS COUNTED 100
--- NOTE | 2021-12-07 18:04 | NUR ---
SHIFT SUMMARY PATIENT MEDICATED FOR PAIN X2. PATIENT MEDICATED FOR NAUSEA X2. PATIENT DENIES SHORTNESS OF BREATH. PATIENT IS BEDREST. JETT IS PATENT AND DRAINING. WOUND CARE DONE AND DRESSING CHANGED. MEDICATED WITH PAIN MEDS PRIOR TO DRESSING CHANGE. PATIENT TOLERATED WELL. PATIENT HAD FAMILY VISIT IN AFTERNOON. PATIENT TEARFUL ABOUT HOME SITUATION. PROVIDED THERAPUETIC LISTENING. PATIENT DRANK WELL. POOR FOOD INTAKE DUE TO NAUSEA. PATIENT IS PLEASANT AND COOPERATIVE WITH CARE.
--- NOTE | 2021-12-08 04:50 | NUR ---
SHIFT SUMMARY A/OX4, 2P MAX ASSIST FOR Q2 REPOSITIONING AND CHANGES. UNSTAGEABLE COCCYX WOUND, DRESSING C/D/I. C/O 01/14 PAIN TO THE AREA, MEDICATED PER EMAR. JETT PATENT AND DRAINING. BP 80S SYSTOLIC THIS AM AFTER RECHECKING MULTIPLE TIMES, MAP OF 73. NO ACUTE CHANGES AT THIS TIME. BED IN LOWEST POSITION WITH CALL LIGHT IN REACH. WILL CONTINUE TO MONITOR AND REPORT TO ONCOMING RN.
[2021-12-08 06:16] LABS: BASOPHILS ABSOLUTE AUTO 0.04 K/mm3 (0.00-0.23); BASOPHILS PERCENT AUTO 0 % (0-2); EOSINOPHILS ABSOLUTE AUTO 0.06 K/mm3 (0.00-0.68); EOSINOPHILS PERCENT AUTO 1 % (0-6); Hematocrit 29.3 % (33.0-51.0); IMMATURE GRAN ABSOLUTE AUTO 0.44 K/mm3 (0.00-0.10); IMMATURE GRAN PERCENT AUTO 4 % (0-1); LYMPHOCYTES ABSOLUTE AUTO 1.28 K/mm3 (0.84-5.20); LYMPHOCYTES PERCENT AUTO 13 % (21-46); MONOCYTES ABSOLUTE AUTO 1.24 K/mm3 (0.16-1.47); MONOCYTES PERCENT AUTO 12 % (4-13); Mean Corpuscular HGB 27.2 pg (26.0-34.0); Mean Corpuscular HGB Conc 30.7 g/dL (31.5-36.5); Mean Corpuscular Volume 89 fL (80-100); Mean Platelet Volume 8.5 fL (9.1-12.4); NEUTROPHILS ABSOLUTE AUTO 7.06 K/mm3 (1.96-9.15); NEUTROPHILS PERCENT AUTO 70 % (41-73); NRBC ABSOLUTE 0.04 K/mm3 (0.00-0.02); NRBC Auto 0.4 /100 WBC (0.0-0.2); Platelet Count 495 K/mm3 (150-400); RDW Coefficient Variation 19.3 % (11.7-14.2); RDW Standard Deviation 61.9 fL (35.1-46.3); Red Blood Cell Count 3.31 M/mm3 (3.80-5.20); White Blood Cell Count 10.12 K/mm3 (4.00-11.30)
[2021-12-08 06:30] LABS: Albumin, Blood 1.7 g/dL (3.4-5.0); Albumin/Globulin Ratio 0.5 (0.8-1.8); Bilirubin, Total 0.4 mg/dL (0.1-1.0); Bun/Creatinine Ratio 49.8 (12.0-20.0); Calcium, Blood 7.7 mg/dL (8.5-10.1); Creatinine, Blood 0.74 mg/dL (0.40-1.00); Globulin, Blood 3.7 g/dL (2.2-4.0); Potassium, Blood 3.1 mmol/L (3.5-5.5); Total Protein, Blood 5.4 g/dL (6.4-8.2)
[2021-12-08 14:36] LABS: Bun/Creatinine Ratio 49.3 (12.0-20.0); Calcium, Blood 7.9 mg/dL (8.5-10.1); Creatinine, Blood 0.69 mg/dL (0.40-1.00); Potassium, Blood 3.8 mmol/L (3.5-5.5)
--- NOTE | 2021-12-08 15:05 | NUR ---
Claudette having dressings changed, was tolerateing pretty well. brought her a peppermint patch for nausea. put it in a decorive card so she can control the exposure and use. will follow up with theraputic visits and monitor pain and nausea.
--- NOTE | 2021-12-08 15:14 | NUR ---
WOUND DRESSING CHANGE PREMEDICATED WITH FENTANYL. REMOVE ALL OLD DRESSING MATERIALS. CLEANSED WITH WOUND CLEANSER, PATTED DRY WITH 6X6 GAUZE. WOUND BED PRESENTS IMPROVEMENT SINCE 2-3 WEEKS SINCE I PERSONALLY LAST VIEWED. REDRESSED WITH XEROFORM, 2 SMALL, 2 LARGE. PLACED ABD PADS OVER. TAPE WITH SKIN TAPE NEEDED. PT TOLERATED WELL. BED IN LOW POSITION, CALL LITE IN REACH, CALLS APPROP
--- NOTE | 2021-12-08 15:23 | NUR ---
AFTER DRESSING CHANGE, TURNED PT TO FULL RT SIDE. BED IN LOW POSITION, CALL LITE IN REACH, CALLS APPROP
--- NOTE | 2021-12-08 18:21 | NUR ---
PT MOSTLY PLEASANT TODAY. SOME TEARFUL. DID FULL WOUND CHANGE TODAY. PREMEDICATED. JEANMARIE WELL. WOUND LOOKS IMPROVED FROM LAST TIME I CARED FOR PT SOME 2-3 WEEKS AGO. EDGES IMPROVED WITH RED NESS AND GROWTH TO REPAIR. ENCOURAGED HER TO BE ON FULL SIDE LYING WHEN CAN. NO NEW CONCERNS NOTED. BED IN LOW POSITIOIN, CALL LITE IN REACH, CALLS APPROP
--- NOTE | 2021-12-09 05:49 | NUR ---
SHIFT SUMMARY PATIENT ALERT AND ORIENTED X3. MEDICATED PER EMAR FOR PAIN. HAD NO COMPLAINTS OF SHORTNESS OF BREATH. NO ACUTE ISSUES NOTED OVERNIGHT. CALL LIGHT WITHIN REACH. REPORT GIVEN TO ONCOMING RN.
[2021-12-09 07:34] LABS: Bun/Creatinine Ratio 50.8 (12.0-20.0); Calcium, Blood 7.8 mg/dL (8.5-10.1); Creatinine, Blood 0.71 mg/dL (0.40-1.00); Potassium, Blood 3.2 mmol/L (3.5-5.5)
--- NOTE | 2021-12-09 16:04 | NUR ---
Spiritual Care visit. Pt. is awake in bed, and smiles and welcomes me as I visit. Pt. is generally pleasant, but is unsettled by the length of time required for her healing. Listen with a calming presenace and give pastoral support and certified lactation counselor. Pt. displays evidence of being engaged and motivated. Prayed with Pt. Pt. verbalizes gratitude for the spiritual care request. The Pt. requested a NT Bible, and one was retrieved for the Pt. Once agina the Pt. verbalized graitude for the Mo's NT Bible.
--- NOTE | 2021-12-09 18:47 | NUR ---
PT MOSTLY PLEASANT TODAY. MEDICATED PER EMAR. WAS IRRITATED ABOUT FLUID RESTRICTION. PASSED WOUND WAREHOUSING TECHNICIAN TO NITE SHIFT DUE TO LACK OF TIME TO DO TODAY. NO NEW CONCERNS NOTED. RECENTLY MED FOR PAIN. PRESENTLY EATING \DINNER. BED IN LOW POSITION, CALL LITE IN REACH, CALLS APROP
--- NOTE | 2021-12-10 07:23 | NUR ---
PT OVERNIGHT WITH NO NEW COMPLAINS. DID NEED ZOFRAN X1 WITH POSITIVE EFFECT. DRESSING CHANGED THIS AM. MEDICATED WITH FENTANYL PRIOR AND PT REPORTS THAT PAIN IS STILL SEVERE DURING DRESSING CHANGES. TURNED Q2H TO BEST OF STAFF AVAILABILITY.
--- NOTE | 2021-12-10 18:26 | NUR ---
PT HAS BEEN PRETTY QUIET TODAY. SOME NAUSEA THIS AM. POWERGLIDE DRESSING CHANGE DONE TODAY. WOUND NURSE VOICED WOULD CHANGE WOUND ON COCCYX. HAVE NOT OBSERVED. PT ACCEPTING TURNS MOSTLY TODAY. I DID OBSERVE HER DAUGHTER AND HUSB IN ROOM TODAY. VISIT APPEARED PLEASANT. NO OTHER CONCERNS NOTED. BED IN LOW POSITION, CALL LITE IN REACH, CALLS APROP
--- NOTE | 2021-12-11 04:07 | NUR ---
SHIFT SUMMARY 51 YR F ADMITTED ON 11/17/21 FOR SEPTIC SHOCK. FULL CODE. NO ACUTE CHANGES THIS SHIFT. BANDAGE ON COCCYX WAS CHANGED THIS SHIFT. PT TOLERATED WELL ALTHOUGH IT WAS PAINFUL. SHE EXPERIENCED SOME NAUSEA AND VOMITED BUT AFTER BEING GIVEN ZOFRAN SHE STATED THAT SHE FELT BETTER.
--- NOTE | 2021-12-11 07:30 | NUR ---
ASSUMED CARE: PT RESTING QUIETLY AT THIS TIME. NO ACUTE NEEDS OR CONCERNS AT THIS TIME.
[2021-12-11 08:53] LABS: Bun/Creatinine Ratio 47.6 (12.0-20.0); Calcium, Blood 8.2 mg/dL (8.5-10.1); Creatinine, Blood 0.67 mg/dL (0.40-1.00); Potassium, Blood 2.5 mmol/L (3.5-5.5)
--- NOTE | 2021-12-11 17:39 | NUR ---
SHIFT SUMMARY: PT AWAITING PLACEMENT. DRESSING CHANGED TO COCCYX THIS SHIFT WITH BED BATH. POWDER APPLIED TO ISAAC AREA PER ORDERS. PT MEDICATED FOR PAIN X1 PRN AND FOR NAUSEA X1. IV KCL ADMINISTERED. DENIES FURTHER NEEDS OR CONCERNS.
--- NOTE | 2021-12-12 05:20 | NUR ---
SHIFT SUMMARY 51 YR F ADMITTED ON 11/17/21. FULL CODE. NO ACUTE CHANGES THIS SHIFT. PT SLEPT FOR MOST OF THE SHIFT THEN HAD A LARGE BOWEL MOVEMENT AND WAS CHANGED THIS A.M. THERE WAS STOOL ON HER COCCYX DRESSING SO IT WAS ENTIRELY CHANGED. THE PROCESS OF ROLLING AND CLEANING PT IS VERY PAINFUL FOR HER AND SHE CRIED. SHE WAS MEDICATED W/ FENTNYL PRIOR TO CHANGING. IN GENERAL SHE TOLERATES IT WELL.
[2021-12-12 05:54] LABS: Bun/Creatinine Ratio 32.5 (12.0-20.0); Calcium, Blood 8.3 mg/dL (8.5-10.1); Creatinine, Blood 0.83 mg/dL (0.40-1.00); Potassium, Blood 3.9 mmol/L (3.5-5.5)
--- NOTE | 2021-12-12 13:06 | NUR ---
REFUSAL OF CARE PATIENT HAS REFUSED REPOSITIONING X3 THIS SHIFT. ENCORUAGED AND EDUCATED ON THE IMPORTANCE OF WEIGHT SHIFTS IN BED FOR WOUND HEALING. PATIENT CONT TO DECLINE. PT CAME FOR EVAL, PATIENT REQUESTS THAT PT EVAL HAPPEN TOMORROW AND STATES "I WILL WORK WITH THEM." WILL CONT TO ENCOURAGE POSITION CHANGES
--- NOTE | 2021-12-12 17:20 | NUR ---
SHIFT SUMMARY PATIENT ALERT, ORIENTED, ABLE TO MAKE HER NEEDS KNOWN. FLUID RESTRICTION OF 1800ML INITIATED PER HOSPITALIST ORDER. PATIENT HAS DEVELOPED ADNORML BREATH SOUNDS. HER SPO2 LEVEL ON ROOM AIR IS 86%-89%. STARTED HER ON 1.5L VIA NC, SATS AT 96%. MESSAGE LEFT FOR HOSPITALIST AND RESIDENT. PATIENT CONT TO DECLINE POSITION CHANGES AND LIQUID MEDICATIONS. APPETITE REMAINS POOR. MEDICAID APPLICATION INTERVIEW TODAY FOR MUSIC MINISTRIES DIRECTOR CARE. BED LOW AND LOCKED, CALL LIGHT WITHIN REACH. WILL CONT TO MONITOR UNTIL REPORT GIVEN TO SECTION CUTTER,.
[2021-12-13 06:10] LABS: Bun/Creatinine Ratio 25.9 (12.0-20.0); Calcium, Blood 7.9 mg/dL (8.5-10.1); Creatinine, Blood 0.89 mg/dL (0.40-1.00); Potassium, Blood 2.9 mmol/L (3.5-5.5)
--- NOTE | 2021-12-13 06:33 | NUR ---
SHIFT SUMMARY PATIENT ALERT AND ORIENTED X3. HAD NO COMPLAINTS OF PAIN OR SHORTNESS OF BREATH. NO ACUTE ISSUES NOTED OVERNIGHT. CALL LIGHT WITHIN REACH. REPORT GIVEN TO ONCOMING RN.
--- NOTE | 2021-12-13 18:34 | NUR ---
PT PLEASANT TODAY. DID WOUND CARE TODAY. REPLACED DRESSINGS. PT JEANMARIE WITH PREMEDICATION. KEEPING TURNED TODAY. PROPPED WITH PILLOWS. SHE DID HAVE SMALL BM TODAY. WAS ABLE TO CLEAN WELL AND CHANGED WOUND AT THAT TIME. ON OTHER CONCERNS NOTED BED IN LOW POSITION,, CALL LITE IN REACH, BED ALARM ONFOR SAFETY, CALLS APPROP
[2021-12-14 08:32] LABS: Bun/Creatinine Ratio 29.1 (12.0-20.0); Calcium, Blood 7.5 mg/dL (8.5-10.1); Creatinine, Blood 0.83 mg/dL (0.40-1.00)
--- NOTE | 2021-12-14 16:18 | NUR ---
MEDICATING NOW TO DO DRESSINGN CHANGE
--- NOTE | 2021-12-14 18:11 | NUR ---
DRESSING CHANGE DONE TODAY. PREMEDIATED. FULL BED BATH AND BED CHANGE. NEW PIX TAKEN. PT CONTINUES TO REFUSE LIQUID ORAL MEDS. OUTSIDE OF WOUND BED LOOKS SLOWLY BETTER, THE ESCHAR HAS BEEN REMOVED. NO OTHER CONCERNS NOTED. BED IN LOW POSITION, CALL LITE IN REACH, CALLS APPROP
[2021-12-15 06:08] LABS: Bun/Creatinine Ratio 25.3 (12.0-20.0); Calcium, Blood 7.8 mg/dL (8.5-10.1); Creatinine, Blood 0.99 mg/dL (0.40-1.00)
--- NOTE | 2021-12-15 06:33 | NUR ---
PT WITH NO NEW COMPLAINS OVERNIGHT. PT DID REFUSE LIQUID MEDICATIONS SHE STATES THAT ANY MEDICATIONS IN LIQUID FORM MAKE HER SICK. SHE IS WILLING TO TAKE PILLS BUT WILL NOT TAKE LIQUID FORM. BILAT HEELS NOTED TO BE RED ATTEMPTED TO ELEVATE HEELS OR PUT HEEL FOAM PROTECTORS/MEPILEX HOWEVER PT GREATELY REFUSED STATING SHE DOES NOT LIKE ANYTHING UNDER HER FEET AND HER HEELS "ARE ALWAYS RED." SACRAL DRESSING C/D/I.
--- NOTE | 2021-12-15 17:03 | NUR ---
SHIFT SUMMARY PT AxOx4. PT HAS FLAT/WITHDRAWN AFFECT. PT REPORTS NAUSEA x2 THIS SHIFT. MEDICATED PER EMAR. PT DECLINED TURNS/REPOSITIONING MULTIPLE TIMES THIS SHIFT. PT STATES "I JUST DOESN'T WANT TO MOVE RIGHT NOW." PT DECLINED WORKING WITH PHYSICAL THERAPY THIS SHIFT. PT DECLINED TAKING ANY LIQUID ORAL MEDICATIONS THIS SHIFT. PT STATES "THEY MAKE ME SICK TO MY STOMACH." PT DID NOT EAT HER LUNCH DUE TO "POOR APPETITE." VITALS REVIEWED. PT IS CURRENTLY RESTING IN BED WITH CALL LIGHT IN REACH. PT DECLINED DRESSING CHANGE TO COCCYX WOUND THIS SHIFT. WILL ATTEMPT AGAIN PRIOR TO END OF SHIFT. CURRENT PLAN IS PENDING PLACEMENT AT [facility].
--- NOTE | 2021-12-16 04:22 | NUR ---
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 TOLERATED PO PILLS, REFUSED LIQUID MEDS - VOICED THEY CAUSED HER TO HAVE NAUSEA. RECEIVED ZOFRAN X 1 OF THIS WRITING. REPOSITIONED WITH ASSIST, BUT NOTE SHE REPOSITIONS SELF BACK TO WHERE SHE WANTS TO BE. MOTHER CALLED EARLIER, VOICED SHE WOULD VISIT PT "WEDNESDAY". PT NOTIFIED OF THIS. CALL LIGHT IN REACH. JETT DRAINING WITH APPARENT SEDIMENT. FLUIDS ENCOURAGED, (UP TO FLUID LIMIT). OTHERWISE, HAS BEEN RESTING QUIETLY WITH FEW INTERRUPTIONS.
[2021-12-16 06:27] LABS: Bun/Creatinine Ratio 23.7 (12.0-20.0); Calcium, Blood 7.6 mg/dL (8.5-10.1); Creatinine, Blood 1.14 mg/dL (0.40-1.00); Potassium, Blood 3.4 mmol/L (3.5-5.5)
--- NOTE | 2021-12-16 14:42 | NUR ---
Spiritual Care Visit. Pt. is in bed and welcomes my visit. Pt. displays evidence of being distant and is less responsive than in previous visits. Pt. displayed evidence of understanding that her son might be in the hospital. Pt. still displays evidence of being passive in her responses. Praye with Pt. Pt. verbalizes gratitude for the spiritul care visit.
--- NOTE | 2021-12-16 16:49 | NUR ---
PATIENT HAD DOSE OF ZOFRAN HALF WAY THROUGH THE SHIFT. SHE DID NOT EAT MUCH FOR LUNCH. SHE'S BEEN REFUSING ANY MEDICATION THAT IS LIQUID, THE PRIOR SHIFT HAD ALSO REPORTED. SHE THINKS THE LIQUID MEDICATION MAKES HER NAUSEATED. HOWEVER, SHE WAS NAUSEATED THIS SHIFT AND HAD NOT HAD LIQUID MEDS. WOUND CARE WAS NOT COMPLETED BECAUSE THE PATIENT STATES THAT SHE DOES NOT WANT IT DONE. THE DRESSING THAT ARE INPLACE ARE DRY/INTACT. PILL PO MEDICATIONS WERE TAKEN WITHOUT COMPLAINT/DIFFICULTY.
--- NOTE | 2021-12-17 04:02 | NUR ---
SHIFT SUMMARY PT HAS NO COMPLAINTS AT THIS TIME. PT HAS TUNNELING WOUND TO COCCYX AREA, NOT VISUALIZED BY THIS RN, WHICH IS COVERED BY A MEPILEX DRESSING. PT CONTINUES 1800 FLUID RESTRICTION. PT HAS JETT THAT IS PATENT. POWERGLIDE IN L ARM THAT WILL NEED TO BE REMOVED ON WEDNESDAY, PER TOOL AND EQUIPMENT RENTAL CLERK. IV DOES NOT DRAW. PT HAS CALL LIGHT WITHIN HER REACH.
--- NOTE | 2021-12-17 19:25 | NUR ---
SHIFT SUMMARY PT A/O X4 AND PLEASANT BUT WITHDRAWN. PT REFUSED REPOSITIONING AND LIQUID MEDICATIONS THIS SHIFT. POOR APPETITE DUE TO NAUSEA AND VOMITTING. TREATED N/V PER EMR.
--- NOTE | 2021-12-18 05:47 | NUR ---
SHIFT SUMMARY PATIENT ALERT AND ORIENTED. MEDICATED PER EMAR FOR NAUSEA. NO ACUTE ISSUES NOTED OVERNIGHT. CALL LIGHT WITHIN REACH. REPORT GIVEN TO ONCOMING RN.
[2021-12-18 06:09] LABS: Bun/Creatinine Ratio 21.3 (12.0-20.0); Calcium, Blood 7.9 mg/dL (8.5-10.1); Creatinine, Blood 1.41 mg/dL (0.40-1.00); Potassium, Blood 4.5 mmol/L (3.5-5.5)
--- NOTE | 2021-12-18 17:15 | NUR ---
PT A/OX4, BEDREST, THE PT TODAY DECLINED MOST OF HER ORAL MEDICATION STATEING THAT SHE FELT TO NAUSEATED TO TAKE THEM. SHE DID, HOWEVER, TAKE SOME OF HER ESSENTIAL MEDICATIONS. THE PT WAS MEDICATED FOR NAUSEA X2. THE PT DECLINED TO WORK WITH OCCUPATIONAL AND PHYSICAL THERAPY EVEN AFTER ENCOURAGED TO BY DR. ADAMES AND THE THERAPIST. THE PT DECLINED TO BE REPOSTIONED FOR MOST OF THE DAY, THE PT DID ALLOW WOUND CARE, BED BATH AND REPOSITION AFTER PRE AND POST PAIN MEDICATION. PT TOLERATED THE DRESSING CHANGE WELL. CALL LIGHT IN REACH, WILL CONTINUE TO MONITOR AND ASSESS FOR CHANGES
--- NOTE | 2021-12-19 06:20 | NUR ---
SHIFT SUMMARY PATIENT ALERT AND ORIENTED. MEDICATED PER EMAR FOR NAUSEA. HAD NO ACUTE ISSUES NOTED OVERNIGHT. CALL LIGHT WITHIN REACH. REPORT GIVEN TO ONCOMING RN.
--- NOTE | 2021-12-19 15:19 | NUR ---
Theraputic time with patient brought her some more spearmint for nausea. She was worried about tia. Advised her he left the hospital. Tried to discuss with her some of her stressors and if her and her family had a plan. She tried to discuss some of her care needs but became distraughts. She had some difficulty tracking the conversation and had decreased eye contact and started to become very anxious. We discussed her fear for her son and her stressors of living in the hotel. reassured her that the care teams are trying to help her son. She is distraught at having minimal contact with her family. Review of pt with pediatric social worker and progressive care nurse. Called [facility] care team to try to review if they had a plan for her son and to get them a rental in [place]. Will continue to work with in patient and out patient team to see if we can get a plan the helps the whole family witch will benefit Jasmina. Will review with physcians her cronic depression chronic decline. Consider repat psyci consult to review her medications or increasing medication.
--- NOTE | 2021-12-19 18:06 | NUR ---
SUMMARY PT AWAKE IN BED WATCHING TV, PT HAS A FLAT AFFECT, MED PER EMAR FOR PAIN AND NAUSEA, PT DECLINED MOST ORAL MEDS TODAY, DECLINED TO BE TURNED SEVERAL TIMES, HAD AN APD INTERVIEW TODAY IN THE ROOM, PT AGREED TO COCCYX WOUND DRESSING CHANGE, HAD A LOW BP THEN STATED SHE WANTED TO WAIT DUE TO NEEDING PAIN MEDS WITH DRESSING CHANGES, PT WITH A POOR APPETITE, NO COMPLAINTS, WILL CONT TO MONITOR
--- NOTE | 2021-12-20 05:59 | NUR ---
SHIFT SUMMARY NOC: TOOK OVER CARE AT 0300. PT TURNED Q2 HOURS. PAIN WELL TOLERATED WITH PRN PAIN MEDICATION. COCCYX DRESSING CHANGED AT 2300. NO ACUTE EVENTS.
[2021-12-20 12:09] LABS: Calcium, Blood 7.9 mg/dL (8.5-10.1); Creatinine, Blood 1.95 mg/dL (0.40-1.00); Potassium, Blood 3.7 mmol/L (3.5-5.5)
--- NOTE | 2021-12-20 17:42 | NUR ---
SHIFT SUMMARY PT HAS BEEN REFUSING ALL CARE. SHE SAYS TO COME BCK LATER WHEN STAFF OFFER TO TURN, PREFORM WOUND CARE, FEED, OR GIVE HER MEDICATIONS. PT STATED " i DON'T WANT TO DO WOUND CARE NOW, CAN WE DO IT TONIGHT" WHEN ASKED AT 1530. BP WAS ALSO SOFT AT 80 /60. NOTIFIED. NO NEW ORDERS GIVEN, BUT TO DOCUMENT REFUSAL. PT EDUCATED ON NEED FOR BP MEDICATIONS TO PREVENT SEVERE HYPOTENSION, LOSS OF CONCIOUSNESS, OR DEEATH IN EXTREME CASE. PT STILL REFUSED. WILL RECHE CHECK VITALS TO MONITOR BP. BED IN LOWEST POSITION AND CALL LIGHT IN REACH
--- NOTE | 2021-12-21 05:06 | NUR ---
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 REFUSING TO ALLOW STAFF TO TURN/REPOSITION HER THROUGHOUT THE NIGHT, EVEN THOUGH STAFF EMPHASIZES THE IMPORTANCE OF IT. ALERT AND ORIENTED. O2 CONTINUES AT 2L/MIN PER NC. DENIES DISTRESS EACH TIME STAFF ASKS. HOB ELEVATED AND WATCHING TV AT THIS TIME. AGREED TO ALLOW STAFF TO CHANGE DRESSING AFTER [facility] MED KICKS IN (RECEIVED MED A FEW MINUTES AGO). CALL LIGHT IN REACH
--- NOTE | 2021-12-21 06:28 | NUR ---
PT REFUSED DRESSING CHANGE. STATED WOULD ALLOW IT LATER WITH DAY SHIFT. CALL LIGHT IN REACH
[2021-12-21 07:40] LABS: Bun/Creatinine Ratio 21.4 (12.0-20.0); Creatinine, Blood 1.96 mg/dL (0.40-1.00); Potassium, Blood 4.4 mmol/L (3.5-5.5)
--- NOTE | 2021-12-21 18:40 | NUR ---
PATIENT A/OX4, WITHDRAWN AND SLOW TO RESPOND AT TIMES TODAY. DRESSINGS CHANGED TO COCCYX WOUND AND BILATERAL HIP WOUNDS. PRESSURE SORES TO HEELS BILATERALLY, FLOATING ON PILLOWS. POOR APPETITE, VERY LITTLE PO INTAKE. ZOFRAN GIVEN X1 TODAY FOR NAUSEA. PATIENT REFUSING SOME OF HER MEDICATIONS AND PILLS THAT ARE "TOO BIG." JETT TO GRAVITY WITH ZOEY, CLOUDY, FOUL SMELLING OUTPUT. PATIENT REFUSES CARE AT TIMES, BUT DID ALLOW REPOSITIONING WHEN ENCOURAGED. 2LO2 TO MAINTAIN SATS. FENTANYL GIVEN X1 TODAY PRIOR TO DRESSING CHANGE AND OXYCODONE USED FOR BREAKTHROUGH PAIN.
--- NOTE | 2021-12-21 21:41 | NUR ---
PT OFFERED NIGHT MEDICATIONS THREE TIMES AND REFUSED ALL TIMES.
--- NOTE | 2021-12-22 03:56 | NUR ---
SHIFT SUMMARY PT REFUSED CARE. PT STILL REFUSING MEDICATIONS. PT WAS OFFERED MEDICATIONS SEVERAL TIMES AND DECLINED. PT HAS CALL LIGHT WITHIN REACH. PT CONTINUES TO BE WITHDRAWN AND GIVE SHORT ANSWERS TO QUESTIONS, MOSTLY ANSWERING WITH YES OR NO.
[2021-12-22 05:32] LABS: Calcium, Blood 8.1 mg/dL (8.5-10.1); Creatinine, Blood 2.43 mg/dL (0.40-1.00); Potassium, Blood 3.8 mmol/L (3.5-5.5)
--- NOTE | 2021-12-22 08:00 | NUR ---
pt has a very flat affect, she is slow to answer but states she's ok, then says she is too nauseated to take any medications, especially the liquid stuff, gave kemal the checked back with her after half an hr, she still refused any thing, including breakfast, refused turning. will attempt again later, call light in reach.
--- NOTE | 2021-12-22 12:18 | NUR ---
attempted to give pt her noon meds, she is laying flat and states she doesn't know and doesn't know if she will eat. did speak to her about having her dressing changed after lunch, and that we will medicate her, prior, she became tearful and repeats it's already been done, it got changed. will medicate her after lunch and go from there. call light in reach.
--- NOTE | 2021-12-22 15:14 | NUR ---
pt has refused everything, explained to her about 1130 the plan for the day is to medicate her for pain and after lunch will change the dressing, she pushed back and said she can't do it, offered reassurance, and medicated her, got three other nurses to assist with moving her and dressing change, she complained that she's nauseated, medicated her with zofran, noted a purple area to right heel, heel protectors placed on her, she wanted to wait, but was able to get her to agree to them, she is floated with pillows with clean ramon, states she feels better. call light in reach.
--- NOTE | 2021-12-22 18:12 | NUR ---
pt refusing dinner after refusing breakfast and lunch, did take her midadrine, and pain pills but nothing else, she becomes irritated if we try to encourage her. no further changes this shift. call light in reach.
--- NOTE | 2021-12-22 20:44 | NUR ---
PT REFUSING NIGHTLY MEDICATIONS AT THIS TIME. REFUSING PAIN MEDICATION WELL.
--- NOTE | 2021-12-23 04:14 | NUR ---
SHIFT SUMMARY PT CONTINUES TO REFUSE TO ALLOW CARE AND TO TAKE HER MEDICATIONS. PT DID ALLOW TO BE TURNED IN BED ONCE AND ALLOWED TO BE MEDICATED WITH PAIN MEDICATION AT THAT TIME. PT HAS CALL LIGHT WITHIN HER REACH. PT DOES HAVE NS AT 25ML RUNNING TO KVO. PT CONTINUES TO NOT HAVE AN APPETITE AND HAS LITTLE TO NO ORAL FLUID INTAKE.
[2021-12-23 08:20] LABS: Hematocrit 29.8 % (33.0-51.0); Hemoglobin 9.6 g/dL (11.5-16.0); Mean Corpuscular HGB 28.2 pg (26.0-34.0); Mean Corpuscular HGB Conc 32.2 g/dL (31.5-36.5); Mean Corpuscular Volume 87 fL (80-100); Mean Platelet Volume 9.2 fL (9.1-12.4); NRBC ABSOLUTE 0.02 K/mm3 (0.00-0.02); NRBC Auto 0.1 /100 WBC (0.0-0.2); Platelet Count 355 K/mm3 (150-400); RDW Coefficient Variation 19.5 % (11.7-14.2); RDW Standard Deviation 59.9 fL (35.1-46.3); Red Blood Cell Count 3.41 M/mm3 (3.80-5.20); White Blood Cell Count 30.51 K/mm3 (4.00-11.30)
[2021-12-23 08:40] LABS: Albumin/Globulin Ratio 0.2 (0.8-1.8); Bilirubin, Total 0.7 mg/dL (0.1-1.0); Bun/Creatinine Ratio 17.8 (12.0-20.0); Calcium, Blood 7.4 mg/dL (8.5-10.1); Creatinine, Blood 3.09 mg/dL (0.40-1.00); Globulin, Blood 4.3 g/dL (2.2-4.0); Potassium, Blood 4.7 mmol/L (3.5-5.5); Total Protein, Blood 5.3 g/dL (6.4-8.2)
[2021-12-23 08:41] LABS: BAND PERCENT MAN 2 % (0-8); BASOPHILS PERCENT MAN 0 % (0-2); EOSINOPHILS PERCENT MAN 0 % (0-6); LYMPHOCYTES ABSOLUTE MAN 0.91 K/mm3 (0.84-5.20); LYMPHOCYTES PERCENT MAN 3 % (21-46); METAMYELOCYTE PERCENT MAN 1 % (0-0); MONOCYTES PERCENT MAN 1 % (4-13); MYELOCYTE ABSOLUTE MAN 0.61 K/mm3 (0.00-0.00); MYELOCYTE PERCENT MAN 2 % (0-0); NEUTROPHILS ABSOLUTE MAN 28.37 K/mm3 (1.96-9.15); SEG NEUTROPHILS PERCENT MAN 91 % (41-73); TOTAL CELLS COUNTED 100
--- NOTE | 2021-12-23 10:30 | NUR ---
UPON MORNING ROUNDING PATIENT STATED THAT SHE "JUST WANTS TO BE LEFT ALONE." WITH FURTHER QUESTIONING PATIENT CONTINUED THAT SHE WANTED TO BE LEFT ALONE AND REFUSED ALL MEDICATIONS INCLUDING PAIN MEDICATION. AT THIS TIME PATIENT ANSWERS TWO ORIENTATION QUESTIONS CORRECTLY. PT CAN STATE THAT SHE IS IN THE HOSPITAL IN [place] BUT WHEN ASKED HER NAME SHE AGAIN STATES "[place]." SHE CAN TELL ME THAT HER SON'S NAME IS KANNAN AND AGAIN THAT SHE "JUST WANTS TO BE LEFT ALONE." THIS NURSE TO CALL HOSPITALIST TO DISCUSS CARE.
[2021-12-23 12:19] LABS: Source, Urine Foley catheter
[2021-12-23 12:24] LABS: Appearance, Urine Cloudy (Clear); Blood, Urine 5+ (Neg); Color, Urine Amber (P-Yellow); Glucose Qualitative, Urine Neg (Neg); Ketones, Urine 1+ (Neg); Leukocyte Esterase, Urine 3+ (Neg); Nitrite, Urine Neg (Neg); Protein, Urine 2+ (Neg); Urobilinogen, Urine 2+ (Normal)
[2021-12-23 12:33] LABS: Bilirubin, Urine 2+ (Neg)
[2021-12-23 12:36] LABS: Bacteria Many /hpf; Squamous Epithelial Cells Many /hpf (Few); White Blood Cells, Urine 50-100 /hpf (0-5)
[2021-12-23 12:37] LABS: Transitional Epithelial Cells Rare /hpf (0-Rare)
[2021-12-23 13:43] LABS: Bun/Creatinine Ratio 18.2 (12.0-20.0); Calcium, Blood 7.3 mg/dL (8.5-10.1); Creatinine, Blood 3.18 mg/dL (0.40-1.00); Potassium, Blood 4.4 mmol/L (3.5-5.5)
--- NOTE | 2021-12-23 15:27 | NUR ---
Pt. is awake in bed when I enter. Family had just met with the medical staff and decided for Comfort Care measures when I arrived at room. Pt. is unsettled about what everyone was doing. Gave pastoral pediatric genetic counselor with a calming presence and let Pt. know that her family would be coming in to see her soom. Pt. displayed evidence of being skeptical. Prayed for Pt. Pt. verbalized gratitude for the spiritual care visit. This internal audit director will continue to monitor the Pt. and family.
--- NOTE | 2021-12-23 16:30 | NUR ---
Pt blood sugar decreasing today. pt not wanting to eat, less alert unable to track conversations. Review of labs albumin has declined. Contacted by physician of changes. pt fmily notified and they came in daughter and pt spoke and patient made comfort care. Will maintain supportive dextrose for comfort and to allow time for family to cme visit. updated [facility] team so they can give added support to her very ill son. Will continue to support family.
--- NOTE | 2021-12-23 18:10 | NUR ---
SHIFT SUMMARY PT AXO X1-2, COMPLETELY UNCOOPERATIVE WITH CARE. AT 1111, PT GLUCOSE WAS 21. ALLEY TENDER, KERRY NOTIFIED 1115 THIS NURSE ATTEMPTING TO PULL D50 PER PROTOCOL FROM [employer] WHICH WAS NOT LOADED IN MACHINE. PHARMACIST HAD THIS NURSE PULL AND ADMINISTER 250ML BAG OF D5 AT BOLUS RATE. [address] PATTERSON NOTIFIED OF CBG AT 1129, NO NEW ORDERS. CBG FOLLOWING WAS 59. DR WINN GAVE VERBAL ORDERS TO ORDER BMP TO VERIFY CBG, WHICH WAS 47. PT MEDICATED PER EMAR WITH D10. CGBS Q2. AT 1130 OLD JETT DC'D AND NEW JETT PLACED. WOUND CARE AND PHOTOS TAKEN. SEE CHART. PT TRANSITIONED TO COMFORT CARE. MEDICATED PER EMAR. BED IN LOW POSITION, CALL LIGHT WITHIN REACH.
--- NOTE | 2021-12-24 06:53 | NUR ---
SHIFT SUMMARY: COMFORT CARE MEASURES CONTINUED THROUGHOUT THE NIGHT. PT REMAINS SLEEPY AND LETHARGIC, OCCASSIONALLY WAKING AND RESPONDING WITH SINGLE WORD ANSWERS. DEXTROSE 10% INFUSION COMPLETED THIS MORNING. BLOOD SUGARS STABALIZED, LOWEST TONIGHT DOWN TO 65- AFTERWARDS CONTINUED TO INCREASE TO 160'S GLUCOSE. FLUIDS COMPLETED THIS MORNING WELL. JETT IN PLACE WITH ZOEY OUTPUT. PAIN MEDICATIONS ADMINISTERED 2X TONIGHT. PT DECLINED INTERVENTIONS FOR ORAL CARE, PO FLUIDS, TURNING, WOUND DRESSING, REPOSITIONING. PT ALLOWED STAFF TO SLIGHTLY REPOSITION PILLOWS OCCASIONALLY YET REPORTED DISCOMFORT WITH ANY SLIGHT MOVEMENT. APPROXIMATELY 0620 PT OBSERVED MOANING, MULTIPLE ATTEMPTS TO OFFER PAIN MEDICATIONS, REPOSITIONING OR ANXIETY MEDICATIONS WERE DECLINED. AT THIS TIME PATIENT DECLINING ANY PAIN SENSATION REPORTING CURRENT STATE OF COMFORT. PT STATES "PLEASE DON'T TOUCH ME, PLEASE LEAVE ME ALONE". BED ALARM REMAINS ACTIVATED, BED IN LOW POSITION, CALL RUBIO AND BELONGINGS IN REACH.
--- NOTE | 2021-12-24 08:50 | NUR ---
Attempted to see pt this morning; her affect remains flat and she stated she "just wants to be left alone". She denies pain this morning. As of last night, the plan was for her family members to come in today to visit her. Pt's daughter Carmen remains the point of contact.
--- NOTE | 2021-12-24 11:41 | NUR ---
Spiritual Care Visit. Pt. is awake in bed, and welcomes my visit. Family members are present. Pt. displays evidence of being emotionally detached, and while she has been actively enaged in past visits, is pretty withdrawn today. Pt. denies any concerns or pain, but does allow me to pray with her. [place] with Pt. Daughter is appropriately cathartic. Daughter verbalizes gratitude for the spiritual care visit. Will continue to monitor and be available to the family.
--- NOTE | 2021-12-24 12:02 | NUR ---
PT HAS GRIMACE, RN ASKED IF SHE WANTED PAIN MED AND SHE SAYS " I JUST WANT YOU TO LEAVE ME ALONE". ENCOURAGED PT TO TAKE PAIN MED AND SHE REPEATED THE SAME. STATES SHE HAS NO NEEDS AND WANTS TO BE LEFT ALONE. APPEARS TO BE DOZING ON/OFF. AWAITING FAMILY TO COME.
--- NOTE | 2021-12-24 12:04 | NUR ---
FAMILY AT BEDSISE, SUPPORTIVE OF PT. PT AGREED TO HAVE SOME ROXONOL FOR DISCOMFORT. DECLINED ATIVAN IN PUDDING. SEEMS TO HAVE MILD ANXIETY, OFFERED REASSURANCE TO PT AND FAMILY.
--- NOTE | 2021-12-24 12:08 | NUR ---
PT APPEARS WITH SLIGHT GRIMACE AND OCC MOAN. DECLINES PAIN MEDS. STATES SHE ISN'T IN PAIN. PT HAS LARGE FAMILY IN THE ROOM. PASTORAL CARE CAME BY TO OFFER SUPPORT
--- NOTE | 2021-12-24 15:23 | NUR ---
PT STATES SHE IS COMFORTABLE, DECLINES ROXONOL. FAMILY AT BEDSIDE FOR SUPPORT. THEY STATE THEY HAVE ALL THEY NEED CURRENTLY. PT AGREED TO TRY TILTING ONTO HER SIDE IN A FEW HOURS. INSTRUCTED TO CALL OR TELL FAMILY IF SHE HAS ANY NEEDS.
--- NOTE | 2021-12-24 19:28 | NUR ---
PT DOZING, AWAKENS TO VERBAL. STATES SHE DOESN'T NEED HELP. REFUSES PAIN MEDS. REFUSES HELP TO REPOSITION. REFUSUS ORAL CARE. FAMILY REMAINS AT BEDSIDE, SUPPORTIVE IN PT CARE
--- NOTE | 2021-12-24 19:35 | NUR ---
SUMMARY- PT OPENS EYES TO VERBAL. RESISTANT TO ADL ASSIST. MEDICATED ONCE WITH ROXONOL AND ONCE WITH IV MORPHINE FOR DISCOMFORT. PT'S FAMILY SUPPORTIVE IN CARE, LARGE NUMBER OF VISITIOR COMING IN/OUT ALL DAY. HAS JETT. HAS REFUSED TURNS ALL SHIFT.
--- NOTE | 2021-12-25 03:19 | NUR ---
PATIENT IS AWAKE, QUIET, FAMILY AT BEDSIDE.
--- NOTE | 2021-12-25 03:20 | NUR ---
PATIENT IS AWAKE, ADAMENT ABOUT NO CARES, STATES NO NO NO. TRIED TO JUST DO CHAPSTICK, SHE REFUSES. REFUSES TO BE TURNED, UPSET WITH THIS WRITTER WHEN I LOOKED UNDER COVERS TO ASSESS LIMB POSITION.
--- NOTE | 2021-12-25 03:22 | NUR ---
PT RESTING, DID NOT AWAKEN, WAS MEDICATED WITH 4MG IV MORPHINE. RESTING, NO DIS TRESS NOTED.
--- NOTE | 2021-12-25 03:23 | NUR ---
INKING MACHINE TENDER AT BEDSIDE, PT AROUSES, AGAIN REFUSING ANY CARES OR REPOSITIONING. TALKED WITH MOTHER ON PHONE EARLIER, SHE IS AWARE PT IS REFUSING CARES.
--- NOTE | 2021-12-25 06:05 | NUR ---
PT RESTING WELL, ALLOWED TO REST WITHOUT INTERUPTION.
--- NOTE | 2021-12-25 06:07 | NUR ---
PT IS MOANING, MEDICATED WITH 5 MG IV MORPHINE. PT REFUSES CARES AGAIN, WILL LET PAIN MED KICK IN AND TRY TO REPOSITION. PT REMAINS UNCHANGED THIS SHIFT.
--- NOTE | 2021-12-25 09:55 | NUR ---
Pt is resting quietly in bed. Pt's and daughter have just arrived, and are doing well considering the circumstances. Pt appears calm, relaxed. No s/s of air hunger or pain. She stated "no" when I asked her if she was having any pain. Palliative care will continue following this pt.
--- NOTE | 2021-12-25 16:02 | NUR ---
NURSE NOTE PATIENT PASSED AT 1554. FAMILY WAS IN THE ROOM. WAS NOTIFIED. PALLATIVE CARE IS WITH PATIENTS FAMILY.
--- NOTE | 2021-12-25 16:34 | NUR ---
Spiritual Care - EOL Pt. has transitioned and the family is present and appropriately grieving. Palliative Care nurses are present. Prayer for the departed Pt. and family present is given with a comforting presence. Palliative Care and this Beverage Host stayed with family until family requested some personal time. They will let nursing staff know when they leave. [facility] in [place] is the home the family has chosen.
--- NOTE | 2021-12-25 18:29 | NUR ---
Assisted family and helped with post mortem care.Will follow up with family. updated staff that her son tia who is ill and in frequently. may come in due to his stress and frailty.
== END 2021-12-25 15:54 | DRG 853 ==
LOC: ER 10:00 → ICUW 17:00 → PCU 17:00 → MEDS 17:00 → ERHOLD 17:00 → ICUW 17:00 → PCU 11-19 17:38 → MEDS 11-20 22:21 → PCU 11-22 02:08 → MEDS 11-23 15:25
PROVIDERS: Anesthesiology; Family Medicine; Internal Medicine; Nurse Practitioner Acute Care; Nurse Practitioner Family; Pharmacist; Student in an Organized Health Care Education/Training Program; ADMIT Hospitalist
PROC: 02HV33Z Insertion of Infusion Device into Superior Vena Cava, Percutaneous Approach (ICD-10-PCS; principal; 2021-11-17)
PROC: 3E03329 Introduction of Other Anti-infective into Peripheral Vein, Percutaneous Approach (ICD-10-PCS; 2021-11-17)
PROC: 3E033XZ Introduction of Vasopressor into Peripheral Vein, Percutaneous Approach (ICD-10-PCS; 2021-11-17)
PROC: 0DB68ZX Excision of Stomach, Via Natural or Artificial Opening Endoscopic, Diagnostic (ICD-10-PCS; 2021-11-20)
PROC: 0DB98ZX Excision of Duodenum, Via Natural or Artificial Opening Endoscopic, Diagnostic (ICD-10-PCS; 2021-11-20)
PROC: 0JB70ZZ Excision of Back Subcutaneous Tissue and Fascia, Open Approach (ICD-10-PCS; 2021-11-30)
PROC: 30233N1 Transfusion of Nonautologous Red Blood Cells into Peripheral Vein, Percutaneous Approach (ICD-10-PCS; 2021-11-30)
DX: A41.9 Sepsis, unspecified organism (principal); G92.8 Other toxic encephalopathy; L89.154 Pressure ulcer of sacral region, stage 4; R65.21 Severe sepsis with septic shock; K25.4 Chronic or unspecified gastric ulcer with hemorrhage; I50.31 Acute diastolic (congestive) heart failure; J96.01 Acute respiratory failure with hypoxia; K26.4 Chronic or unspecified duodenal ulcer with hemorrhage; K20.91 Esophagitis, unspecified with bleeding; N17.0 Acute kidney failure with tubular necrosis; N39.0 Urinary tract infection, site not specified; D62 Acute posthemorrhagic anemia; E87.1 Hypo-osmolality and hyponatremia; Z78.1 Physical restraint status; Z51.5 Encounter for palliative care; Z66 Do not resuscitate; Z99.3 Dependence on wheelchair; R57.1 Hypovolemic shock; F32.A Depression, unspecified; E66.01 Morbid (severe) obesity due to excess calories; I11.0 Hypertensive heart disease with heart failure; E87.6 Hypokalemia; D63.8 Anemia in other chronic diseases classified elsewhere; K76.0 Fatty (change of) liver, not elsewhere classified; F17.210 Nicotine dependence, cigarettes, uncomplicated; E16.2 Hypoglycemia, unspecified; Z68.29 Body mass index [BMI] 29.0-29.9, adult; Z91.19 Patient's noncompliance with other medical treatment and regimen; Z98.51 Tubal ligation status; Z98.890 Other specified postprocedural states; Z79.899 Other long term (current) drug therapy
CPT/HCPCS: 0241U; 36415; 36430; 36556; 51702; 71045; 74177; 76705; 80048; 80053; 80202; 80400; 81001; 82272; 82330; 82533; 82607; 82728; 82746; 82803; 82947; 82977; 83520; 83540; 83550; 83605; 83735; 84100; 84132; 84439; 84443; 85014; 85018; 85025; 85027; 85045; 85610; 85730; 86850; 86900; 86901; 86923; 87040; 87077; 87086; 87186; 88305; 88342; 93005; 93010; 93306; 94640; 94660; 94664; 94760; 94762; 96365; 96366; 96368; 96375; 96376; 99285-25; A9270; C1751; C9113; J0295; J0690; J0692; J0834; J1100; J1610; J1650; J1885; J1940; J2250; J2270; J2370; J2405; J2543; J2704; J2765; J3010; J3370; J3475; J3480; J7030; J7040; J7042; J7050; J7060; J7120; P9016; P9046; Q9967